=== PATIENT | female | born 1930 | race African-American/Black ===

== ENCOUNTER 2016-03-07 09:34 | Inpatient (IN) | payer MEDICARE, MEDICAID ==
[2016-03-07] VITALS (7 sets, daily range): BP systolic 122–162; BP diastolic 51–83
[~2016-03-07] VITALS: Ht 160 cm; Wt 55.8 kg
[2016-03-07] MEDS ORDERED: MEGESTROL625 MG/5 M PO (09:57)
[2016-03-07] MEDS ORDERED: CEROVITE SENIO1 EACH PO (09:57)
[2016-03-07] MEDS ORDERED: TRAVATAN Z5 ML RIGHT EYE (09:57)
[2016-03-07] MEDS ORDERED: NAMENDA XR28 MG PO (09:57)
[2016-03-07] MEDS ORDERED: ASPIRIN EC81 MG ORAL (09:57)
[2016-03-07] MEDS ORDERED: JANUMET 50-5001 EACH ORAL (09:57)
[2016-03-07] MEDS ORDERED: BRIMONIDINE TART5 ML RIGHT EYE (09:57)
[2016-03-07] MEDS ORDERED: BYSTOLIC2.5 MG ORAL (09:57)
[2016-03-07 10:32] LABS: EOSINOPHILS % (AUTO) 1.3 % (0.0-3.0); LYMPHOCYTES % (AUTO) 29.8 % (20.0-45.0); MEAN CORPUSCULAR HEMOGLOBIN 30.6 PG (27.0-31.0); MEAN CORPUSCULAR HGB CONC 33.4 G/DL (32.0-36.0); MEAN CORPUSCULAR VOLUME 92 FL (80-99); MEAN PLATELET VOLUME 7.5 FL (6.5-10.1); MONOCYTES % (AUTO) 6.9 % (1.0-10.0); PLATELET COUNT 379 K/UL (150-450); RED BLOOD COUNT 4.52 M/UL (4.20-5.40); RED CELL DISTRIBUTION WIDTH 13.4 % (11.6-14.8); WHITE BLOOD COUNT 9.2 K/UL (4.8-10.8)
[2016-03-07 10:33] LABS: ALANINE AMINOTRANSFERASE 20 U/L (3-33); ALBUMIN/GLOBULIN RATIO 1.3 (1.0-2.7); ANION GAP 19 (5-15); ASPARTATE AMINO TRANSFERASE 17 U/L (5-40); CALCIUM 9.9 mg/dL (8.6-10.2); CARBON DIOXIDE 21 mEQ/L (20-30); CHLORIDE 101 mEQ/L (98-107); CREATININE 1.4 mg/dL (0.5-0.9); HEMOLYSIS 22; POTASSIUM 4.4 mEQ/L (3.4-4.9); SODIUM 141 mEQ/L (135-145); TOTAL PROTEIN 7.4 g/dL (6.6-8.7)
[2016-03-07 10:34] LABS: TROPONIN I < 0.30 ng/mL (<=0.30)
[2016-03-07 10:39] LABS: PROTHROMBIN TIME 10.6 SEC (9.30-11.50)
[2016-03-07 10:44] LABS: CKMB 1.7 ng/mL (< 3.8)
--- NOTE | 2016-03-07 11:47 | Emergency Room Report ---
History of Present Illness General Chief Complaint: Dizziness Source: Patient, Medical Record, EMS Present Illness HPI Patient reports that she has had several admissions recently for dizziness Was found to be hypotensive this morning as well Patient has a treated the dizziness to bladder infection in the past Denies any headache or visual changes denies any chest pain or shortness of breath Patient is a description of near syncope sensation when she stands The dizziness is not associated with position otherwise Denies any back or flank pain denies any fevers Denies any vomiting or diarrhea denies any trauma Allergies: Coded Allergies: VALSARTAN (Verified Allergy, Unknown, 03/07/16) Patient History Past Medical History: see triage record Pertinent Family History: none Last Menstrual Period: na Reviewed Nursing Documentation: PMH: Agreed, PSxH: Agreed Nursing Documentation-PMH Past Medical History: No History, Except For Hx Hypertension: Yes Hx Diabetes: Yes History Of Psychiatric Problem: Yes - dementia, alzheimers Hx Neurological Problems: Yes - syncope Review of Systems All Other Systems: negative except mentioned in HPI Physical Exam Vital Signs Date Time Temp Pulse Resp B/P Pulse Ox O2 Delivery O2 Flow Rate FiO2 03/07/16 09:26 98.2 79 16 211/96 100 Room Air Sp02 EP Interpretation: reviewed, normal General Appearance: well appearing, no apparent distress Head: normocephalic, atraumatic Eyes: bilateral eye EOMI, bilateral eye PERRL ENT: hearing grossly normal, normal pharynx, TMs + canals normal, uvula midline Neck: full range of motion, supple, no meningismus, no bony tend Respiratory: lungs clear, normal breath sounds, no rhonchi, no respiratory distress, no retraction, no accessory muscle use Cardiovascular #1: normal peripheral pulses, regular rate, rhythm, no edema, no gallop, no JVD, no murmur Gastrointestinal: normal bowel sounds, non tender, soft, no mass, no organomegaly, non-distended, no guarding, no hernia, no pulsatile mass, no rebound Genitourinary: no CVA tenderness Musculoskeletal: normal inspection Neurologic: oriented x3, responsive, 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 as tested, motor strength/ tone normal, sensory intact Psychiatric: mood/affect normal Skin: normal color, no rash, warm/dry, palpation normal Lymphatic: normal inspection, no adenopathy Medical Decision Making Diagnostic Impression: Primary Impression: Hypertensive urgency, malignant Additional Impression: Dizziness ER Course Patient is a fairly complex patient with multiple differential to consideration including but not limited to cardiac cardiopulmonary , intracranial and vascular emergencies Patient's baseline blood work are appropriate levels Patient's CT head did not show any acute disease Hypotensive finding improved with time here in the ER Given the patient's complaints the multiple recent near syncopal episodes and dizziness further carotid ultrasound And cardiovascular workup is required And the patient admitted for further care Labs Test 03/07/16 09:50 White Blood Count 9.2 K/UL (4.8-10.8) Red Blood Count 4.52 M/UL (4.20-5.40) Hemoglobin 13.8 G/DL (12.0-16.0) Hematocrit 41.5 % (37.0-47.0) Mean Corpuscular Volume 92 FL (80-99) Mean Corpuscular Hemoglobin 30.6 PG (27.0-31.0) Mean Corpuscular Hemoglobin Concent 33.4 G/DL (32.0-36.0) Red Cell Distribution Width 13.4 % (11.6-14.8) Platelet Count 379 K/UL (150-450) Mean Platelet Volume 7.5 FL (6.5-10.1) Neutrophils (%) (Auto) 60.0 % (45.0-75.0) Lymphocytes (%) (Auto) 29.8 % (20.0-45.0) Monocytes (%) (Auto) 6.9 % (1.0-10.0) Eosinophils (%) (Auto) 1.3 % (0.0-3.0) Basophils (%) (Auto) 2.0 % (0.0-2.0) Prothrombin Time 10.6 SEC (9.30-11.50) Prothromb Time International Ratio 1.0 (0.9-1.1) Activated Partial Thromboplast Time 21 SEC (23-33) Sodium Level 141 mEQ/L (135-145) Potassium Level 4.4 mEQ/L (3.4-4.9) Chloride Level 101 mEQ/L (98-107) Carbon Dioxide Level 21 mEQ/L (20-30) Anion Gap 19 (5-15) Blood Urea Nitrogen 27 mg/dL (7-23) Creatinine 1.4 mg/dL (0.5-0.9) Estimat Glomerular Filtration Rate mL/min (>60) Glucose Level 199 mg/dL (74-106) Calcium Level 9.9 mg/dL (8.6-10.2) Total Bilirubin 0.5 mg/dL (0.0-1.2) Aspartate Amino Transf (AST/SGOT) 17 U/L (5-40) Alanine Aminotransferase (ALT/SGPT) 20 U/L (3-33) Alkaline Phosphatase 54 U/L (35-104) Total Creatine Kinase 45 U/L (26-140) Creatine Kinase MB 1.7 ng/mL (< 3.8) Creatine Kinase MB Relative Index 3.7 Troponin I < 0.30 ng/mL (<=0.30) Pro-B-Type Natriuretic Peptide 235 pg/mL (0-450) Total Protein 7.4 g/dL (6.6-8.7) Albumin 4.3 g/dL (3.5-5.2) Globulin 3.1 g/dL Albumin/Globulin Ratio 1.3 (1.0-2.7) EKG Diagnostic Results Rate: normal Rhythm: NSR ST Segments: other - Nonspecific ST and T-wave changes, LVH Rhythm Strip Diag. Results EP Interpretation: yes Rate: 74 Rhythm: NSR, no PVC's, no ectopy Chest X-Ray Diagnostic Results EP Interpretation: Yes Findings: no consolidation, no effusion, no pneumothorax Number of Views: 1 CT/MRI/US Diagnostic Results CT/MRI/US Diagnostic Results : Impression CT head no acute disease Last Vital Signs Date Time Temp Pulse Resp B/P Pulse Ox O2 Delivery O2 Flow Rate FiO2 03/07/16 10:00 65 16 162/72 100 Room Air 03/07/16 09:26 98.2 Status: improved Disposition: ADMITTED INPATIENT Condition: Serious Referrals: NON PHYSICIAN (PCP) CHRISTIANNE NAGY D.O. Mar 07, 2016 11:47
[2016-03-07 12:07] LABS: APPEARANCE,URINE CLOUDY; KETONES,URINE NEGATIVE (NEGATIVE); LEUKOCYTE ESTERASE ,URINE 3+ (NEGATIVE); NITRITE,URINE NEGATIVE (NEGATIVE); PH,URINE 7 (4.5-8.0); PROTEIN,URINE 2+ (NEGATIVE); UROBILINOGEN,URINE NORMAL MG/DL (0.0-1.0)
[2016-03-07 12:14] LABS: BACTERIA,URINE MODERATE /HPF; RBC,URINE 0-2 /HPF (0 - 2); SQUAMOUS EPITHELIAL CELL,UR FEW /LPF (NONE/OCC)
[2016-03-07] MEDS ORDERED: cefTRIAXone 1 GM in NS 55 ML IVPB ONE (13:45)
--- NOTE | 2016-03-07 19:39 | History & Physical ---
History and Physical History & Physicial dizziness , pre syncope dm nephropathy htn dementia uti Plan: Monitor cardiac stop mind altering meds- Hydrate- Neuro eval rocepema asa carotid duplex DAVIDA SMUMERS Mar 07, 2016 19:39
[2016-03-07] MEDS: Heparin 5000 units/ml inj SUBQ SCH (21:21)
[2016-03-07] MEDS: cefTRIAXone 1 GM in D5W 55 ML IVPB SCH (22:04)
--- NOTE | 2016-03-08 04:37 | History and Physical Report ---
DATE OF ADMISSION: 03/07/2016 HISTORY OF PRESENT ILLNESS: The patient is an 85-year-old female, a resident of the [facility], had previous several admissions for dizziness today and she was found to be hypotensive and again was dizzy. The patient did fall down, did not have any gastrointestinal symptoms. The patient was brought into emergency room, was found to have a urinary tract infection and subsequently is being admitted for further management. ALLERGIES: Valsartan. MEDICATIONS: The list of her medications include Alphagan, aspirin, Bystolic, Razadyne ER 8 mg, combination of Januvia and metformin, Megace, Namenda, and Travatan eye drop. PAST MEDICAL HISTORY: Past history of the patient is significant for diabetes mellitus, dementia, hypertension, atherosclerotic heart disease, and diabetes mellitus. PHYSICAL EXAMINATION: GENERAL: Today, at this time, the patient answers question appropriately. VITAL SIGNS: Temperature 98.7, pulse rate 74, the lowest was 60 sinus rhythm; blood pressure 147/69, and respiratory rate is 18. The patient is not in any distress. HEENT: Head is normocephalic. Face is pale. Sclerae are not icteric. Has dentures. No carotid bruits are audible. LUNGS: Clear. HEART: Regular rate. Soft systolic murmur at the apex left sternal border. ABDOMEN: Slightly distended. Soft. EXTREMITIES: Lower extremities, no edema. Evidence of two knee surgeries and the scar is seen anteriorly. LABORATORY RESULTS: Urine, 3+ leukocyte esterase, 15 WBCs. Creatinine 1.4. Electrolytes normal. Hemoglobin 13.8. Urine, 3+ leukocyte esterase and 2+ protein, and coag studies are negative. IMPRESSION: This patient comes in to the hospital with a diagnosis of dizziness and about to pass out and had a blood pressure of 211/96 on arrival. Diagnoses: 1. Dizziness, presyncopal. 2. Hypertensive emergency. 3. Evidence of urinary tract infection. 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 PLAN: At this point, stop Bystolic and mind-altering medication. Hydrate. Neurology evaluation. Rocephin, aspirin, and carotid duplex studies. Also, I have changed to Bystolic to Norvasc. According to how the patient's condition evolves, we make the proper changes in our future management. Erich Otoniel Dawn DR: ROGELIO JOB#: [id number] CC:
[2016-03-08 06:00] VITALS: BP 133/61
[2016-03-08] MEDS ORDERED: sitaGLIPtin 50mg tab ORAL SCH (06:30)
[2016-03-08 08:00] VITALS: BP 145/93
[2016-03-08 08:27] LABS: BASOPHILS % (AUTO) 1.5 % (0.0-2.0); EOSINOPHILS % (AUTO) 1.3 % (0.0-3.0); LYMPHOCYTES % (AUTO) 41.6 % (20.0-45.0); MEAN CORPUSCULAR HEMOGLOBIN 30.7 PG (27.0-31.0); MEAN CORPUSCULAR HGB CONC 33.6 G/DL (32.0-36.0); MEAN CORPUSCULAR VOLUME 91 FL (80-99); MEAN PLATELET VOLUME 7.9 FL (6.5-10.1); MONOCYTES % (AUTO) 7.3 % (1.0-10.0); NEUTROPHILS % (AUTO) 48.4 % (45.0-75.0); PLATELET COUNT 365 K/UL (150-450); RED BLOOD COUNT 4.33 M/UL (4.20-5.40); RED CELL DISTRIBUTION WIDTH 13.4 % (11.6-14.8); WHITE BLOOD COUNT 7.9 K/UL (4.8-10.8)
[2016-03-08 08:41] LABS: ALANINE AMINOTRANSFERASE 29 U/L (3-33); ALBUMIN/GLOBULIN RATIO 1.4 (1.0-2.7); ANION GAP 18 (5-15); ASPARTATE AMINO TRANSFERASE 22 U/L (5-40); CALCIUM 9.4 mg/dL (8.6-10.2); CARBON DIOXIDE 21 mEQ/L (20-30); CHLORIDE 103 mEQ/L (98-107); CHOLESTEROL 131 mg/dL (< 200); CHOLESTEROL/HDL RATIO 3.1 (3.3-4.4); CREATININE 1.3 mg/dL (0.5-0.9); CRP QUANT < 0.3 mg/dL (< 0.5); HEMOLYSIS 4; LDL CHOLESTEROL (CALC.) 72 mg/dL (60-99); PHOSPHORUS 3.4 mg/dL (2.5-4.8); POTASSIUM 4.2 mEQ/L (3.4-4.9); SODIUM 142 mEQ/L (135-145); URIC ACID 3.9 mg/dL (3.0-7.5)
[2016-03-08] MEDS: Aspirin Baby 81mg ORAL SCH (08:59)
[2016-03-08] MEDS: Heparin 5000 units/ml inj SUBQ SCH ×2 (08:59→20:29)
[2016-03-08] MEDS ORDERED: Lisinopril 2.5mg tab ORAL SCH (09:00)
--- NOTE | 2016-03-08 11:39 | General Progress Note ---
Assessment/Plan Status: stable Assessment/Plan This patient comes in to the hospital with a diagnosis of dizziness and about to pass out and had a blood pressure of 211/96 on arrival. Diagnoses: 1. Dizziness, presyncopal. 2. Hypertensive emergency. 3. Evidence of urinary tract infection. 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 Plan: Rocephin- Stop Mind altering meds which cause side effect- PT OT- Neuroeval- Carotid duplex- Increase Januvia Subjective ROS Limited/Unobtainable: No Allergies: Coded Allergies: VALSARTAN (Verified Allergy, Unknown, 03/07/16) Objective Last 24 Hour Vital Signs Date Time Temp Pulse Resp B/P Pulse Ox O2 Delivery O2 Flow Rate FiO2 03/08/16 08:59 63 145/93 03/08/16 08:00 67 03/08/16 08:00 96.7 63 17 145/93 Room Air 63 03/08/16 06:00 97.7 66 20 133/61 Room Air 03/08/16 03:45 63 03/07/16 23:45 65 03/07/16 23:40 97.7 66 20 135/65 99 Room Air 03/07/16 20:00 69 18 147/64 98 Room Air 03/07/16 20:00 70 03/07/16 18:22 71 03/07/16 16:59 95.9 70 20 152/68 99 Room Air 03/07/16 15:01 98.7 74 18 147/69 95 Room Air 03/07/16 14:21 98.8 70 15 122/51 100 Room Air 03/07/16 13:47 98.8 70 15 122/51 100 Room Air 03/07/16 12:00 73 16 138/83 100 Room Air Intake and Output 03/07/16 03/08/16 19:00 07:00 Intake Total 100 ml 1100 ml Output Total 800 ml Balance 100 ml 300 ml Intake Oral 100 ml IV Total 1100 ml Output Urine Total 800 ml # Voids 1 Laboratory Tests 03/07/16 11:40: Urine Color Pale yellow, Urine Appearance Cloudy, Urine pH 7, Urine Specific [place] 1.010, Urine Protein 2+H, Urine Glucose (UA) Negative, Urine Ketones Negative, Urine Occult Blood 1+H, Urine Nitrite Negative, Urine Bilirubin Negative, Urine Urobilinogen Normal, Urine Leukocyte Esterase 3+H, Urine RBC 0-2 , Urine WBC 10-15H, Urine Squamous Epithelial Cells Few, Urine Bacteria ModerateH 03/08/16 07:25: White Blood Count 7.9, Red Blood Count 4.33, Hemoglobin 13.3, Hematocrit 39.6, Mean Corpuscular Volume 91, Mean Corpuscular Hemoglobin 30.7, Mean Corpuscular Hemoglobin Concent 33.6, Red Cell Distribution Width 13.4, Platelet Count 365, Mean Platelet Volume 7.9, Neutrophils (%) (Auto) 48.4, Lymphocytes (%) (Auto) 41.6, Monocytes (%) (Auto) 7.3, Eosinophils (%) (Auto) 1.3, Basophils (%) (Auto ) 1.5, Sodium Level 142, Potassium Level 4.2, Chloride Level 103, Carbon Dioxide Level 21, Anion Gap 18H, Blood Urea Nitrogen 20, Creatinine 1.3H, Estimat Glomerular Filtration Rate , Glucose Level 168H, Uric Acid 3.9, Calcium Level 9.4, Phosphorus Level 3.4, Magnesium Level 2.0, Total Bilirubin 0.3, Gamma Glutamyl Transpeptidase 55H, Aspartate Amino Transf (AST/SGOT) 22, Alanine Aminotransferase (ALT/SGPT) 29, Alkaline Phosphatase 50, C-Reactive Protein, Quantitative < 0.3, Pro-B-Type Natriuretic Peptide 220, Total Protein 7.0, Albumin 4.1, Globulin 2.9, Albumin/Globulin Ratio 1.4, Triglycerides Level 84, Cholesterol Level 131, LDL Cholesterol 72, HDL Cholesterol 42, Cholesterol/ HDL Ratio 3.1L, Vitamin B12 Level [Pending], Folate [Pending], Thyroid Stimulating Hormone (TSH) 1.990 Height (Feet): 5 Height (Inches): 3.00 Weight (Pounds): 123 General Appearance: no apparent distress Cardiovascular: normal rate Respiratory/Chest: lungs clear Abdomen: soft Objective other PE not changed DAVIDA SUMMERS Mar 08, 2016 11:39
[2016-03-08 12:00] VITALS: BP 140/70
[2016-03-08] MEDS ORDERED: sitaGLIPtin 50mg tab ORAL ONE (12:00)
[2016-03-08] MEDS: metFORMIN 500mg tab ORAL SCH ×2 (12:03→16:02)
[2016-03-08 16:00] VITALS: BP 137/63
[2016-03-08] MEDS ORDERED: NS 55ml IV ONE (16:14)
--- NOTE | 2016-03-08 17:00 | Consultation ---
Consult Note Consult Note NEUROLOGY CONSULTATION: Full note dictated #[id number] 85 y/o, RH, BF with PH of HTN, DM, Frequent UTIs and cognitive decline. Has had multiple episodes of unsteadiness on her feet - calls it dizziness. She has also had episodes of her legs buckling and falling down. ON EXAM: Cognitive dysfunction. Mild right VII central. Globally decreased reflexes in UEs with loss of LE DTRs. Wide based stance and gait. IMPRESSION: Unsteadiness on feet due to neuropathic process - most probably due to DM. Episodes of legs buckling and falling down may be due to BP fluctuations. 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 UTI causing decline in MS and near syncope. REC: Agree with Rx. Vit D, SPEP to complete neuropathy W/U. Mobilize with PT. Kiesha Cortez M.D., M.S.P.Jonny. KIESHA CORTEZ Mar 08, 2016 17:00
[2016-03-08] MEDS ORDERED: Tubing IV Secondary IV ONE (18:29)
[2016-03-08 20:00] VITALS: BP 126/72
[2016-03-08] MEDS: cefTRIAXone 1 GM in D5W 55 ML IVPB SCH (20:26)
--- NOTE | 2016-03-08 22:27 | Consultation ---
DATE OF CONSULTATION: 03/08/2016 NEUROLOGY CONSULTATION CONSULTING PHYSICIAN: Donnie Cortez M.D. REQUESTING PHYSICIAN: Erich Dawn M.D. HISTORY: Ms. Cresencio Wu is an 85-year-old, right-handed, black lady, who does have a past history of hypertension, diabetes mellitus, cognitive decline, and heart disease, who lives in an extended living facility. As per Ms. Wu "my computer has stopped working." She feels that her memory has been failing for the last few months and is progressively getting worse. She forgets things told to her. She is unable to remember what people have told her. She forgets appointment and she is quite aware of this. She also has had multiple episodes of what she calls dizziness. The dizziness is a sensation of being unsteady on her feet. She is uncertain as to when exactly this dizziness started but she usually notices it when she is standing or walking and it seems to go away if she sits or lays in bed. She has also had a few episodes where while she is walking she feels lightheaded. This is followed by her legs buckling under her and her falling down. She is uncertain if she loses consciousness when she has these episodes or not. She was complaining of dizziness yesterday at her extended living facility and was noted to have significant elevation in her blood pressure. As a result of that, [place] [facility] [place] When she was brought in her blood pressures were in the 200 systolic range. Since she has been here, her pressure is better controlled. She was also discovered to have a urinary tract infection, which has since been treated and she feels generally better today. PAST MEDICAL HISTORY: Significant for high blood pressure, diabetes mellitus, atherosclerotic heart disease, and cognitive decline. FAMILY HISTORY: Nothing significant other than high blood pressure and diabetes mellitus in other family members. PERSONAL HISTORY: Home: She lives in extended living facility. 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 Habits: She denies use of alcohol, tobacco, or illicit drugs. PRESENT MEDICATIONS: Prior to admission included Alphagan, aspirin, Bystolic, Razadyne ER 8 mg, Januvia, metformin, Megace, Namenda, and Travatan eye drops. PHYSICAL EXAMINATION: GENERAL: She is a well-developed, well-nourished, but lean, black lady, lying in bed, in no acute distress. VITAL SIGNS: Pulse 60 per minute, blood pressure 140/70 mmHg, respirations 17 per minute, and temperature 98.2 degrees Fahrenheit. HEAD: Normocephalic and atraumatic. NECK: No neck rigidity was observed. EENT: Benign. NEUROLOGICAL EXAMINATION: MENTAL STATUS EXAMINATION: She was alert and awake. She was oriented to self only. She had no idea what the date, month, year, or name of the hospital was. She was able to recall 3/3 words immediately, but could only remember 1/3 words in 1 minute and 0/3 words in 3 minutes. She knew that Obama was president, but could not remember presidents prior to that. Her mathematical skills were impaired. Her visuospatial function was also impaired. SPEECH: She had no dysarthria. LANGUAGE: She had anomia for low-frequency words. CRANIAL NERVE EXAMINATION: II: The visual peraza were intact to confrontation testing. III, IV & : The external ocular movements were full and the pupils 3 mm in diameter, equal, round, regular and reactive to light. V: She had normal facial sensations and the temporales, masseters, and pterygoids functioned normally. VII: She had a mild right VII central facial paresis. VIII: She was able to hear well and had no nystagmus. IX: The palate moved symmetrically on phonation. X: She had no hoarseness of voice. XI: The sternocleidomastoids and trapezii functioned normally. XII: The tongue was in the midline without any fasciculations or atrophy. MOTOR SYSTEM: The tone was normal in all four extremities. Examination of muscle mass revealed no focal wasting. Examination of power revealed grade 5/5 power in all muscle groups tested. SENSORY EXAMINATION: She had intact sensations to pinprick, light touch, and graphesthesia. Position sense was normal in the fingers bilaterally, but was diminished in the toes bilaterally. REFLEXES: Trace+ and bilaterally symmetrical at the biceps, triceps, and brachioradialis. 0 at both knees and ankles. The plantar responses were flexor bilaterally. STANCE: She stood up with support. GAIT: She walked with support with a wide-based gait. DIAGNOSTIC IMPRESSION: 1. Ms. Cresencio Wu is an 85-year-old, right-handed, black lady, who does have a past history of hypertension, diabetes mellitus, dementia, prior urinary tract infections, episodes of unsteadiness on her feet and episodes of lightheadedness followed by her legs buckling and her falling down, who was hospitalized yesterday for feeling dizzy and having significant elevations in blood pressure. 2. On neurological examination, at this time, she does have significant problems with orientation, recent and remote memory, visuospatial function, higher cognitive function and language. She also has a mild right VII central facial paresis, decreased position sense in the toes bilaterally, globally decreased reflexes in the upper extremities with loss of deep tendon reflexes in the lower extremities and a wide-based stance and gait. 3. Laboratory data obtained thus far revealed a relatively normal CBC. A chemistry panel revealing a creatinine elevated to 1.3, blood sugar elevated to 168, GGT elevated to 55, hemoglobin A1c elevated to 7.8, and a normal TSH. The Urinalysis revealed 3+ leukocyte esterase with 0 to 2 red blood cells, 10 to 15 white blood cells, and a moderate amount of bacteria in the urine. 4. The patient's history, neurological examination, and laboratory data are most compatible with unsteadiness on her feet due to neuropathic process most probably related to diabetes mellitus. 5. Her episodes of legs buckling and falling down may be related to blood pressure fluctuations causing near syncope. 6. 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 7. The patient does have an urinary tract infection, which could be causing a decline in her mental state and her near syncope. RECOMMENDATIONS: 1. Agree with management thus far including aggressive treatment of the patient's infectious process and correcting her fluid and electrolyte balance. 2. Agree with workup for treatable causes of neuropathy. In addition to the laboratory tests already done, a vitamin D level and serum protein immunoelectrophoresis should also be obtained. 3. The patient should be mobilized with the help of physical and occupational therapy. 4. Once the patient is clinically stable, she should be restarted on her memory stabilizing drugs. Thank you for entrusting me with the care of Ms. Wu. I shall follow her with you. Donnie Cortez M.D., M.S.P.H. DR: MIAH JOB#: [id number] MTDChris
[2016-03-09] VITALS: BP 132/79
[2016-03-09 04:00] VITALS: BP 122/59
[2016-03-09 07:54] VITALS: BP 132/70
[2016-03-09] MEDS: Aspirin Baby 81mg ORAL SCH (08:21)
[2016-03-09] MEDS: Heparin 5000 units/ml inj SUBQ SCH ×2 (08:27→21:31)
--- NOTE | 2016-03-09 08:29 | Diagnostic Imaging Report ---
Indications: Dizziness Technique: Continuous helical CT imaging of the brain was performed with nonionic exposure control on a Siemens sensation [address] scanner. Axial and coronal images were reconstructed at 5 mm slice thickness and interval. CTDI volume(s): 70 mGy Total DLP: 1340 mGy-cm Findings: Comparison: None Confluent low attenuation is present in the bilateral periventricular white matter. No focus of low attenuation is present in each thalamus. Ventricles, cisterns, and sulci are diffusely prominent. No evidence of mass or hemorrhage, mass effect, midline shift, hydrocephalus, or increased intracranial pressure. Bone window images are unremarkable. Visualized paranasal sinuses and mastoid air cells are clear. IMPRESSION: Bilateral thalamic lacunar infarcts, probably but not definitely old. Consider MRI for more sensitive evaluation, as clinically indicated. No other evidence of acute intracranial pathology Bilateral cerebral periventricular white matter low attenuation, nonspecific, likely chronic microvascular ischemic in nature. Atrophy. The CT scanner at [facility] is accredited by the [employer] and the scans are performed using protocols designed to limit radiation exposure to as low as reasonably achievable to attain images of sufficient resolution adequate for diagnostic evaluation.
--- NOTE | 2016-03-09 08:30 | Diagnostic Imaging Report ---
Indications: Chest pain Technique: Portable AP chest Findings: Comparison: None Suboptimal inspiration limits evaluation. Linear density left midlung. Right lung, bilateral pleural surfaces clear. Heart size, pulmonary vasculature within normal limits. Aortic arch calcified. Left glenohumeral joint space narrowed with marginal osteophyte formation. IMPRESSION: Subsegmental atelectasis versus scarring left midlung Otherwise no evidence of acute cardiopulmonary disease, limited as described Aortosclerosis Left glenohumeral degenerative arthropathy
--- NOTE | 2016-03-09 10:04 | General Progress Note ---
Assessment/Plan Status: stable Assessment/Plan This patient comes in to the hospital with a diagnosis of dizziness and about to pass out and had a blood pressure of 211/96 on arrival. Diagnoses: 1. Dizziness, presyncopal. 2. Hypertensive emergency. 3. Evidence of urinary tract infection. 4. Huigh A1c - DM - Nephropathy Neuro: The patient's history, neurological examination, and laboratory data are most compatible with unsteadiness on her feet due to neuropathic process most probably related to diabetes mellitus. 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 Plan: no labs today- Rocephin- Stop Mind altering meds which cause side effect- PT OT- Neuroeval- noted Carotid duplex- Increase Januvia Subjective ROS Limited/Unobtainable: No Constitutional: Reports: malaise Allergies: Coded Allergies: VALSARTAN (Verified Allergy, Unknown, 03/07/16) Objective Last 24 Hour Vital Signs Date Time Temp Pulse Resp B/P Pulse Ox O2 Delivery O2 Flow Rate FiO2 03/09/16 08:21 72 132/70 03/09/16 08:00 75 03/09/16 07:54 97.2 72 18 132/70 98 Room Air 03/09/16 04:00 97.7 71 16 122/59 100 Room Air 03/09/16 03:47 65 03/09/16 00:00 97.9 69 18 132/79 99 Room Air 03/08/16 23:53 71 03/08/16 20:00 72 03/08/16 20:00 96.8 71 18 126/72 99 Room Air 03/08/16 17:39 70 137/63 03/08/16 16:00 71 03/08/16 16:00 98.1 70 19 137/63 98 Room Air 03/08/16 12:00 65 03/08/16 12:00 98.2 58 17 140/70 99 Room Air 73 Intake and Output 03/08/16 03/09/16 19:00 07:00 Intake Total 750 ml 110 ml Balance 750 ml 110 ml Intake Oral 640 ml IV Total 110 ml 110 ml # Voids 1 Laboratory Tests 03/08/16 18:05: Total Protein (PEP) [Pending], Albumin (PEP) [Pending], Globulin (PEP) [Pending] , Albumin/Globulin Ratio [Pending], [id number] [Pending], Alpha-2- Globulins [Pending], Beta Globulins [Pending], Beta Gamma Globulin [Pending], PEP Abnormal Protein Bands [Pending], Protein Electrophoresis Interpret [Pending ], Vitamin D 25-Hydroxy [Pending], 25-Hydroxy Vitamin D2 [Pending], 25-Hydroxy Vitamin D3 [Pending] Height (Feet): 5 Height (Inches): 3.00 Weight (Pounds): 123 General Appearance: no apparent distress Objective other PE not changed DAVIDA SUMMERS Mar 09, 2016 10:04
[2016-03-09] MEDS: metFORMIN 500mg tab ORAL SCH ×2 (11:21→17:11)
[2016-03-09 11:37] VITALS: BP 126/57
--- NOTE | 2016-03-09 15:11 | Neurology Progress Note ---
Interim History Interim History Interim History Ms. Wu feels better today. She is eager to go home. She denies and dizziness, lightheadedness, unsteadiness on her feet. She denies any new neurologic symptoms. She specifically denies any new weakness, numbness, visual problems or language problems. She continues to complain of forgetfulness. Review of Systems Neuro Review of Systems Benign. Objective Physical Exam Last Vital Signs Date Time Temp Pulse Resp B/P Pulse Ox O2 Delivery O2 Flow Rate FiO2 03/09/16 12:00 69 03/09/16 11:37 97.3 18 126/57 98 Room Air Laboratory Tests Test 03/08/16 18:05 Total Protein (PEP) Pending Albumin (PEP) Pending Globulin (PEP) Pending Albumin/Globulin Ratio Pending [id number] Pending Nfzhj-[id number] Pending Beta Globulins Pending Beta Gamma Globulin Pending PEP Abnormal Protein Bands Pending Protein Electrophoresis Interpret Pending Vitamin D 25-Hydroxy Pending 25-Hydroxy Vitamin D2 Pending 25-Hydroxy Vitamin D3 Pending Neurologic Exam Objective PHYSICAL EXAMINATION: GENERAL: She is a well-developed, well-nourished, but lean, black lady, lying in bed, in no acute distress. HEAD: Normocephalic and atraumatic. NECK: No neck rigidity was observed. EENT: Benign. NEUROLOGICAL EXAMINATION: MENTAL STATUS EXAMINATION: She was alert and awake. She was oriented to self only. She had no idea what the date, month, year, or name of the hospital was. She was able to recall 3/3 words immediately, but could only remember 1/3 words in 1 minute and 0/3 words in 3 minutes. She knew that Winloyal was president, but could not remember presidents prior to that. Her mathematical skills were impaired. Her visuospatial function was also impaired. SPEECH: She had no dysarthria. LANGUAGE: She had anomia for low-frequency words. CRANIAL NERVE EXAMINATION: II: The visual peraza were intact to confrontation testing. III, IV & : The external ocular movements were full and the pupils 3 mm in diameter, equal, round, regular and reactive to light. V: She had normal facial sensations and the temporales, masseters, and pterygoids functioned normally. VII: She had a mild right VII central facial paresis. VIII: She was able to hear well and had no nystagmus. IX: The palate moved symmetrically on phonation. X: She had no hoarseness of voice. XI: The sternocleidomastoids and trapezii functioned normally. XII: The tongue was in the midline without any fasciculations or atrophy. MOTOR SYSTEM: The tone was normal in all four extremities. Examination of muscle mass revealed no focal wasting. Examination of power revealed grade 5/5 power in all muscle groups tested. SENSORY EXAMINATION: She had intact sensations to pinprick, light touch, and graphesthesia. Position sense was normal in the fingers bilaterally, but was diminished in the toes bilaterally. REFLEXES: Trace+ and bilaterally symmetrical at the biceps, triceps, and brachioradialis. 0 at both knees and ankles. The plantar responses were flexor bilaterally. STANCE: She stood up with support. GAIT: She walked with support with a wide-based gait. Impression/Recommendations Diagnostic Impression 1. Ms. Cresencio Wu is an 85-year-old, right-handed, black lady, who does have a past history of hypertension, diabetes mellitus, dementia, prior urinary tract infections, episodes of unsteadiness on her feet and episodes of lightheadedness followed by her legs buckling and her falling down, who was hospitalized on 03/07/2016 for feeling dizzy and having significant elevations in blood pressure. 2. She feels better today. She is eager to go home. She continues to be cognitively impoverished. 3. On neurological examination, at this time, she does have significant problems with orientation, recent and remote memory, visuospatial function, higher cognitive function and language. She also has a mild right VII central facial paresis, decreased position sense in the toes bilaterally, globally decreased reflexes in the upper extremities with loss of deep tendon reflexes in the lower extremities and a wide-based stance and gait. 4. Laboratory data on my initial evaluation revealed a relatively normal CBC.A chemistry panel revealing a creatinine elevated to 1.3, blood sugar elevated to 168, GGT elevated to 55, hemoglobin A1c elevated to 7.8, and a normal TSH. The Urinalysis revealed 3+ leukocyte esterase with 0 to 2 red blood cells, 10 to 15 white blood cells, and a moderate amount of bacteria in the urine. 5. 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 6. The patient's history, neurological examination, and laboratory data are most compatible with unsteadiness on her feet due to a neuropathic process most probably related to diabetes mellitus. 7. Her episodes of legs buckling and falling down may be related to blood pressure fluctuations causing near syncope. 8. 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 9. The patient does have an urinary tract infection, which could be causing a decline in her mental state and contributing to her near syncope. Recommendations 1. Continue present management. 2. Aggressive treatment of the patient's infectious process and correcting her fluid and electrolyte balance. 3. Await results for workup for treatable causes of neuropathy. 4. Mobilize with physical and occupational therapy. 5. Once the patient is clinically stable, restart on her memory stabilizing drugs. Kiesha Cortez M.D., M.S.P.Jonny. KIESHA CORTEZ Mar 09, 2016 15:11
[2016-03-09 16:00] VITALS: BP 134/71
[2016-03-09 19:00] VITALS: BP 137/66
[2016-03-09] MEDS ORDERED: cefTRIAXone 1 GM in D5W 55 ML IVPB SCH (21:00)
[2016-03-10] VITALS: BP 140/62
[2016-03-10 04:00] VITALS: BP 108/53
[2016-03-10 07:35] LABS: BASOPHILS % (AUTO) 2.2 % (0.0-2.0); EOSINOPHILS % (AUTO) 1.3 % (0.0-3.0); LYMPHOCYTES % (AUTO) 38.4 % (20.0-45.0); MEAN CORPUSCULAR HEMOGLOBIN 30.6 PG (27.0-31.0); MEAN CORPUSCULAR HGB CONC 33.5 G/DL (32.0-36.0); MEAN CORPUSCULAR VOLUME 91 FL (80-99); MONOCYTES % (AUTO) 6.8 % (1.0-10.0); NEUTROPHILS % (AUTO) 51.4 % (45.0-75.0); PLATELET COUNT 362 K/UL (150-450); RED CELL DISTRIBUTION WIDTH 13.4 % (11.6-14.8); WHITE BLOOD COUNT 8.2 K/UL (4.8-10.8)
[2016-03-10 08:17] LABS: ALANINE AMINOTRANSFERASE 30 U/L (3-33); ALBUMIN/GLOBULIN RATIO 1.2 (1.0-2.7); ANION GAP 18 (5-15); ASPARTATE AMINO TRANSFERASE 18 U/L (5-40); CALCIUM 9.4 mg/dL (8.6-10.2); CARBON DIOXIDE 19 mEQ/L (20-30); CHLORIDE 102 mEQ/L (98-107); CREATININE 1.3 mg/dL (0.5-0.9); HEMOLYSIS 8; PHOSPHORUS 3.7 mg/dL (2.5-4.8); POTASSIUM 4.5 mEQ/L (3.4-4.9); SODIUM 139 mEQ/L (135-145); TOTAL PROTEIN 6.6 g/dL (6.6-8.7)
[2016-03-10 08:44] VITALS: BP 149/78
[2016-03-10] MEDS ORDERED: Aspirin Baby 81mg ORAL SCH (09:00)
[2016-03-10] MEDS: Heparin 5000 units/ml inj SUBQ SCH (10:02)
--- NOTE | 2016-03-10 10:29 | General Progress Note ---
Assessment/Plan Status: stable Assessment/Plan This patient comes in to the hospital with a diagnosis of dizziness and about to pass out and had a blood pressure of 211/96 on arrival. Diagnoses: 1. Dizziness, presyncopal. 2. Hypertensive emergency. 3. Evidence of urinary tract infection. 4. High A1c - DM - Nephropathy Neuro: The patient's history, neurological examination, and laboratory data are most compatible with unsteadiness on her feet due to neuropathic process most probably related to diabetes mellitus. 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 Plan: DC Rocephin- PO Bactrim Stop Mind altering meds which cause side effect- PT OT- Neuroeval- noted Carotid duplex- Increase Januvia DC to ECF Subjective ROS Limited/Unobtainable: No Constitutional: Reports: other - anxious to go home Allergies: Coded Allergies: VALSARTAN (Verified Allergy, Unknown, 03/07/16) Objective Last 24 Hour Vital Signs Date Time Temp Pulse Resp B/P Pulse Ox O2 Delivery O2 Flow Rate FiO2 03/10/16 09:57 68 149/78 03/10/16 08:44 98.0 68 15 149/78 100 Room Air 03/10/16 04:00 97.9 77 16 108/53 99 Room Air 03/10/16 00:00 98.2 74 17 140/62 100 Room Air 03/09/16 19:00 96.8 79 18 137/66 98 Room Air 03/09/16 17:11 68 126/65 03/09/16 16:00 99.0 99 18 134/71 99 Room Air 03/09/16 12:00 69 03/09/16 11:37 97.3 70 18 126/57 98 Room Air Intake and Output 03/09/16 03/10/16 19:00 07:00 Intake Total 490 ml 295 ml Balance 490 ml 295 ml Intake Oral 490 ml 240 ml IV Total 55 ml # Voids 1 6 Current Medications Medications (Trade) Dose Ordered Sig/Jesenia Route PRN Reason Start Time Stop Time Status Last Admin Dose Admin Acetaminophen (Tylenol) 650 mg Q4H PRN ORAL Mild Pain/Temp > 100.5 03/09/16 19:45 04/08/16 19:44 Amlodipine Besylate (Norvasc) 2.5 mg BID ORAL 03/10/16 09:00 04/09/16 08:59 03/10/16 09:57 Aspirin (ASA) 81 mg DAILY ORAL 03/10/16 09:00 04/09/16 08:59 03/10/16 09:57 Ceftriaxone Sodium/Dextrose (Rocephin/D5W 50ml) 55 ml @ 110 mls/hr Q24H IVPB 03/09/16 21:00 03/14/16 20:59 03/09/16 21:25 Heparin Sodium (Porcine) (Heparin 5000 units/ml) 5,000 units EVERY 12 HOURS SUBQ 03/09/16 21:00 04/08/16 20:59 03/10/16 10:02 Metformin HCl (Glucophage) 500 mg BIDLS ORAL 03/10/16 11:30 04/09/16 11:29 03/10/16 09:57 Pantoprazole (Protonix) 40 mg DAILY ORAL 03/10/16 09:00 04/09/16 08:59 03/10/16 09:58 Sitagliptin Phosphate (Januvia) 100 mg ACBREAKFAST ORAL 03/10/16 06:30 04/09/16 06:29 03/10/16 06:28 Laboratory Tests 03/10/16 05:10: White Blood Count 8.2, Red Blood Count 4.30, Hemoglobin 13.2, Hematocrit 39.3, Mean Corpuscular Volume 91, Mean Corpuscular Hemoglobin 30.6, Mean Corpuscular Hemoglobin Concent 33.5, Red Cell Distribution Width 13.4, Platelet Count 362, Mean Platelet Volume 7.0, Neutrophils (%) (Auto) 51.4, Lymphocytes (%) (Auto) 38.4, Monocytes (%) (Auto) 6.8, Eosinophils (%) (Auto) 1.3, Basophils (%) (Auto ) 2.2H, Sodium Level 139, Potassium Level 4.5, Chloride Level 102, Carbon Dioxide Level 19L, Anion Gap 18H, Blood Urea Nitrogen 21, Creatinine 1.3H, Estimat Glomerular Filtration Rate , Glucose Level 153H, Calcium Level 9.4, Phosphorus Level 3.7, Magnesium Level 2.0, Total Bilirubin < 0.2, Aspartate Amino Transf (AST/SGOT) 18, Alanine Aminotransferase (ALT/SGPT) 30, Alkaline Phosphatase 53, Total Protein 6.6, Albumin 3.7, Globulin 2.9, Albumin/Globulin Ratio 1.2 Height (Feet): 5 Height (Inches): 3.00 Weight (Pounds): 123 General Appearance: no apparent distress Cardiovascular: normal rate Respiratory/Chest: lungs clear Objective other PE not changed DAVIDA SUMMERS Mar 10, 2016 10:29
[2016-03-10] MEDS ORDERED: PROTONIX40 MG ORAL (11:15)
[2016-03-10] MEDS ORDERED: BACTRIM-DS1 EA ORAL (11:15)
[2016-03-10] MEDS ORDERED: GLUCOPHAGE500 MG ORAL (11:15)
[2016-03-10] MEDS ORDERED: NORVASC2.5 MG ORAL (11:15)
[2016-03-10] MEDS ORDERED: ACETAMINOPHEN325 M1 ORAL (11:15)
[2016-03-10] MEDS ORDERED: JANUVIA100 MG ORAL (11:15)
--- NOTE | 2016-03-10 11:17 | Discharge Instructions ---
Discharge Instructions Discharge Instructions Follow up with: PMD to follow in ECF Diet: diabetic calorie control Activity: other - PT OT eval Special Instructions fall percautions- For Congestive Heart Failure Reminder Report to your physician any weight gain of 5 pounds or more in one week. DAVIDA SUMMERS Mar 10, 2016 11:17
[2016-03-10] MEDS ORDERED: metFORMIN 500mg tab ORAL SCH (11:30)
[2016-03-10] MEDS ORDERED: Bactrim DS (160mg/800mg) tab ORAL ONE (12:00)
[2016-03-10 12:30] VITALS: BP 126/60
--- NOTE | 2016-03-10 13:32 | Neurology Progress Note ---
Interim History Interim History Interim History Ms. Wu feels very well. She is eager to go home. Her appetite is excellent. She says she did some walking earlier. She denies and dizziness, lightheadedness, unsteadiness on her feet. She denies any new neurologic symptoms. She specifically denies any new weakness, numbness, visual problems or language problems. She continues to complain of forgetfulness. Review of Systems Neuro Review of Systems Benign. Objective Physical Exam Last Vital Signs Date Time Temp Pulse Resp B/P Pulse Ox O2 Delivery O2 Flow Rate FiO2 03/10/16 12:30 98.1 75 16 126/60 99 Room Air Laboratory Tests Test 03/10/16 05:10 White Blood Count 8.2 K/UL (4.8-10.8) Red Blood Count 4.30 M/UL (4.20-5.40) Hemoglobin 13.2 G/DL (12.0-16.0) Hematocrit 39.3 % (37.0-47.0) Mean Corpuscular Volume 91 FL (80-99) Mean Corpuscular Hemoglobin 30.6 PG (27.0-31.0) Mean Corpuscular Hemoglobin Concent 33.5 G/DL (32.0-36.0) Red Cell Distribution Width 13.4 % (11.6-14.8) Platelet Count 362 K/UL (150-450) Mean Platelet Volume 7.0 FL (6.5-10.1) Neutrophils (%) (Auto) 51.4 % (45.0-75.0) Lymphocytes (%) (Auto) 38.4 % (20.0-45.0) Monocytes (%) (Auto) 6.8 % (1.0-10.0) Eosinophils (%) (Auto) 1.3 % (0.0-3.0) Basophils (%) (Auto) 2.2 % (0.0-2.0) H Sodium Level 139 mEQ/L (135-145) Potassium Level 4.5 mEQ/L (3.4-4.9) Chloride Level 102 mEQ/L (98-107) Carbon Dioxide Level 19 mEQ/L (20-30) L Anion Gap 18 (5-15) H Blood Urea Nitrogen 21 mg/dL (7-23) Creatinine 1.3 mg/dL (0.5-0.9) H Estimat Glomerular Filtration Rate mL/min (>60) Glucose Level 153 mg/dL (74-106) H Calcium Level 9.4 mg/dL (8.6-10.2) Phosphorus Level 3.7 mg/dL (2.5-4.8) Magnesium Level 2.0 mg/dL (1.7-2.5) Total Bilirubin < 0.2 mg/dL (0.0-1.2) Aspartate Amino Transf (AST/SGOT) 18 U/L (5-40) Alanine Aminotransferase (ALT/SGPT) 30 U/L (3-33) Alkaline Phosphatase 53 U/L (35-104) Total Protein 6.6 g/dL (6.6-8.7) Albumin 3.7 g/dL (3.5-5.2) Globulin 2.9 g/dL Albumin/Globulin Ratio 1.2 (1.0-2.7) Neurologic Exam Objective PHYSICAL EXAMINATION: GENERAL: She is a well-developed, well-nourished, but lean, black lady, lying in bed, in no acute distress. HEAD: Normocephalic and atraumatic. NECK: No neck rigidity was observed. EENT: Benign. NEUROLOGICAL EXAMINATION: MENTAL STATUS EXAMINATION: She was alert and awake. She was oriented to self, [employer] and February. She did not know the date or year. She was able to recall 3/3 words immediately, but could only remember 2/3 words in 1 minute and 3 minutes. She knew that Obama was president, but could not remember presidents prior to that. Her mathematical skills were impaired. Her visuospatial function was also impaired. SPEECH: She had no dysarthria. LANGUAGE: She had an anomia for low-frequency words. CRANIAL NERVE EXAMINATION: II: The visual peraza were intact to confrontation testing. III, IV & : The external ocular movements were full and the pupils 3 mm in diameter, equal, round, regular and reactive to light. V: She had normal facial sensations and the temporales, masseters, and pterygoids functioned normally. VII: She had a mild right VII central facial paresis. VIII: She was able to hear well and had no nystagmus. IX: The palate moved symmetrically on phonation. X: She had no hoarseness of voice. XI: The sternocleidomastoids and trapezii functioned normally. XII: The tongue was in the midline without any fasciculations or atrophy. MOTOR SYSTEM: The tone was normal in all four extremities. Examination of muscle mass revealed no focal wasting. Examination of power revealed grade 5/5 power in all muscle groups tested. SENSORY EXAMINATION: She had intact sensations to pinprick, light touch, and graphesthesia. Position sense was normal in the fingers bilaterally, but was diminished in the toes bilaterally. REFLEXES: Trace+ and bilaterally symmetrical at the biceps, triceps, and brachioradialis. 0 at both knees and ankles. The plantar responses were flexor bilaterally. STANCE: She stood up with support. GAIT: She walked with support with a wide-based gait. Impression/Recommendations Diagnostic Impression 1. Ms. Cresencio Wu is an 85-year-old, right-handed, black lady, who does have a past history of hypertension, diabetes mellitus, dementia, prior urinary tract infections, episodes of unsteadiness on her feet and episodes of lightheadedness followed by her legs buckling and her falling down, who was hospitalized on 03/07/2016 for feeling dizzy and having significant elevations in blood pressure. 2. She feels better today. Her cognitive function is significantly improved. She is eager to go home. 3. On neurological examination, at this time, she is better oriented and her memory has improved. She however has problems with visuospatial function, higher cognitive function and language. She also has a mild right VII central facial paresis, decreased position sense in the toes bilaterally, globally decreased reflexes in the upper extremities with loss of deep tendon reflexes in the lower extremities and a wide-based stance and gait. 4. Laboratory data on my initial evaluation revealed a relatively normal CBC.A chemistry panel revealing a creatinine elevated to 1.3, blood sugar elevated to 168, GGT elevated to 55, hemoglobin A1c elevated to 7.8, and a normal TSH. The Urinalysis revealed 3+ leukocyte esterase with 0 to 2 red blood cells, 10 to 15 white blood cells, and a moderate amount of bacteria in the urine. 5. 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 6. The patient's history, neurological examination, and laboratory data are most compatible with unsteadiness on her feet due to a neuropathic process most probably related to diabetes mellitus. 7. Her episodes of legs buckling and falling down may be related to blood pressure fluctuations causing near syncope. 8. 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 9. The patient did have an urinary tract infection, which could have been causing a decline in her mental state, which has now improved. It could have also contributed to her near syncope. Recommendations 1. Continue present management. 2. Aggressive treatment of the patient's infectious process and correcting her fluid and electrolyte balance. 3. Await results for workup for treatable causes of neuropathy. 4. Mobilize with physical and occupational therapy. 5. Once the patient is clinically stable, restart on her memory stabilizing drugs. Kiesha Cortez M.D., M.S.P.KIESHA BADILLO Mar 10, 2016 13:32
[2016-03-10] MEDS ORDERED: Bactrim DS (160mg/800mg) tab ORAL SCH (18:00)
--- NOTE | 2016-03-10 19:54 | Cardiology Report ---
APPROVED REPORT EKG Measurement Heart [id number] Normal sinus rhythm Left ventricular hypertrophy with repolarization abnormality Abnormal ECG
[2016-03-11] MEDS ORDERED: Bactrim DS (160mg/800mg) tab ORAL SCH (09:00)
[2016-03-11 10:15] LABS: A/G RATIO 1.3 (0.7-1.7); ABNORMAL PROTEIN BAND 1 Not Observed g/dL (Not Observed); ALBUMIN 3.9 g/dL (2.9-4.4); ALPHA-1 GLOBULIN 0.1 g/dL (0.0-0.4); BETA GLOBULIN 0.8 g/dL (0.7-1.3); GAMMA GLOBULIN 1.2 g/dL (0.4-1.8); TOTAL PROTEIN 6.9 g/dL (6.0-8.5)
[2016-03-11 14:31] LABS: FOLIC ACID > 20.0 ng/mL (3.1-17.5)
[2016-03-11 15:11] LABS: VITAMIN D 25-OH TOTAL 43 ng/mL (.)
--- NOTE | 2016-03-12 12:03 | Discharge Summary ---
Discharge Summary Hospital Course Date of Admission Mar 07, 2016 at 14:12 Date of Discharge Mar 10, 2016 at 15:37 Admitting Diagnosis HYPERTENSIVE MALIGNANCEY HPI Cresencio Wu is a 85 year old female who was admitted on Mar 07, 2016 at 14: 12 for Hypertensive Malignancey Hospital Course dc summary dictated # [id number] Discharge Medications New Medications: Acetaminophen* (Acetaminophen*) 325 Mg Tablet 650 MG ORAL Q4H PRN for 30 Days, TAB Amlodipine Besylate (Norvasc) 2.5 Mg Tablet 2.5 MG ORAL BID for 30 Days, TAB Metformin Hcl* (Glucophage*) 500 Mg Tablet 500 MG ORAL BIDLS for 30 Days, TAB Pantoprazole* (Protonix*) 40 Mg Tablet.dr 40 MG ORAL DAILY for 30 Days, TAB Sitagliptin (Januvia) 100 Mg Tablet 100 MG ORAL ACBREAKFAST for 30 Days, TAB Trimethoprim/Sulfamethoxazole (Bactrim Ds Tablet) 1 Each Tablet 1 EA ORAL DAILY for 10 Days, TAB Continued Medications: Aspirin Ec* (Aspirin Ec*) 81 Mg Tablet.dr 81 MG ORAL DAILY, TAB Brimonidine Tartrate* (Alphagan*) 5 Ml Drops 1 DROP RIGHT EYE BID, ML Multivitamin W-Minerals/Lutein (Cerovite Senior Tablet) 1 Each Tablet 1 EACH PO DAILY, TAB Travoprost (Travatan Z) 5 Ml Drops 5 ML RIGHT EYE QHS, ML Discharge Condition Upon Discharge: improving, stable Discharge Disposition Patient was discharged to [facility] Discharge Diagnoses: Discharge Instructions Discharge Instructions Follow up with: PMD to follow in ECF Activity: other - PT OT eval Special Instructions I have been assigned to complete a D/C Summary on this account. I was not involved in the patient management Jenna Suarez NP (Vanchtein) Mar 12, 2016 12:03
--- NOTE | 2016-03-13 04:07 | Discharge Summary 2 SIG ---
DATE OF ADMISSION: 03/07/2016 DATE OF DISCHARGE: 03/10/2016 The patient was admitted under Dr. Dawn. REASON FOR HOSPITALIZATION: 85-year-old female, resident of the [facility] with previous several admissions, presented for dizziness and found to be hypotensive. The patient was brought to the emergency room for evaluation and found to have urinary tract infection and admitted for further management. No headache, no visual changes, no chest pain, or shortness of breath. Dizziness was not associated with her position changes. No back or flank pain. No fevers. No diarrhea. No vomiting. No trauma or injury. Initial workup in the emergency room revealed urinalysis positive for UTI. The patient presented without leukocytosis, noo fever. The patient also presented with malignant hypertension. Blood pressure was managed in the emergency room and improved prior to transfer to the floor. ADMITTING DIAGNOSES: 1. Hypertensive urgency, malignant. 2. Dizziness with presyncope. 3. Urinary tract infection. 4. Diabetes mellitus. 5. Hypertension. HOSPITAL COURSE: The patient admitted to Med/Surg floor. The patient started on empiric antibiotics. Urine culture positive for E. coli ESBL. IV antibiotic continued . Attending doctor discontinued Bystolic and changed to calcium channel jasmina Blood pressure was stable with current regimen. Troponin was negative. EKG revealed no ST changes. No evidence of arrhythmia. 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 Continue Aspirin. All mind-altering medication were stopped. Neurology consult was requested. Chest x-ray revealed atelectasis versus scaring in the left mid lung. Carotid duplex revealed minimal stenosis in ICA. Serum protein electrophoresis and vitamin D level both within normal limits. According to neurologist, the patient's history, neurological examination, and laboratory data were most consistent with dizziness due to the neuropathic process, most probably related to diabetes mellitus. The patient worked with physical occupational therapists. Januvia dose was increased. Hemoglobin A1c - 7.8, still not at goal. The patient also has underlying diabetic nephropathy. The patient to be discharged to longterm facility for PT/OT, diabetic calorie count, oral Bactrim, and close monitoring. DISCHARGE MEDICATIONS: See medication reconciliation list. DISCHARGE INSTRUCTIONS: The patient to be discharged to longterm facility. Follow up with medical doctor at the facility. Continue PT/OT. Continue diabetic calorie count. May need further optimization of anti-glycemic regimen. FINAL DIAGNOSES: 1. Hypertensive urgency, malignant - resolved. 2. Dizziness with presyncope, likely secondary to diabetic neuropathy. 3. Diabetic nephropathy. 4. Diabetes mellitus, not well controlled (hemoglobin A1c- 7.8). 5. Urinary tract infection/Escherichia coli extended-spectrum beta-lactamase. 6.. Alzheimer dementia. Erich Dawn M.D. I have been assigned to dictate discharge summary on this account and I was not involved in the patient's management. Jenna AminUniversity Of Pittsburgh Medical CenterJana, N.P. DR: GERMAINE JOB#: [id number] CC: RONNI
--- NOTE | 2016-03-16 17:26 | Diagnostic Imaging Report ---
APPROVED REPORT CPT Code: 90115 Vascular Symptoms Dizziness and Vertigo Doppler Spectral Velocity Analysis RightLeft RIGHT SIDE: CCA - Imaging reveals no significant plaque in the common carotid artery. ICA arteries. The Doppler signal indicates the degree of stenosis is mild (50%) in the internal carotid, and minimal (10%) in the external carotid arteries. VERTEBRAL - The vertebral artery is patent, without evidence of stenosis or steal. LEFT SIDE: CCA - Imaging reveals no significant plaque in the common carotid artery. ICA arteries. The Doppler signal indicates the degree of stenosis is minimal (10-20%) in the internal carotid, and external carotid arteries. VERTEBRAL - The vertebral artery is patent, without evidence of stenosis or steal.
== END 2016-03-10 15:37 | DRG 305 ==
LOC: EDBD 09:34 → EDBEDREQ 10:05 → EMR 10:22 → EDBEDREQ 12:06 → 2E 14:12 → 4E 03-09 15:00
DX: I16.0 Hypertensive urgency (principal); E11.21 Type 2 diabetes mellitus with diabetic nephropathy; E11.40 Type 2 diabetes mellitus with diabetic neuropathy, unspecified; N39.0 Urinary tract infection, site not specified; B96.20 Unspecified Escherichia coli [E. coli] as the cause of diseases classified elsewhere; Z16.12 Extended spectrum beta lactamase (ESBL) resistance; F02.80 Dementia in other diseases classified elsewhere, unspecified severity, without behavioral disturbance, psychotic disturbance, mood disturbance, and anxiety; E11.65 Type 2 diabetes mellitus with hyperglycemia; G30.9 Alzheimer's disease, unspecified; Z79.82 Long term (current) use of aspirin; Z79.84 Long term (current) use of oral hypoglycemic drugs
CPT/HCPCS: 36415; 70450; 71010; 80053; 80061; 81003; 82306; 82550; 82553; 82607; 82746; 82962; 82977; 83036; 83735; 83880; 84100; 84165; 84443; 84484; 84550; 85025; 85610; 85730; 86140; 87081; 87086; 87181; 93005; 93880

== ENCOUNTER 2016-04-06 13:48 | Inpatient (IN) | payer MEDICARE, MEDICAID ==
[~2016-04-06] VITALS: Ht 160 cm; Wt 60.8 kg
[~2016-04-06 13:48] MED LIST: ACETAMINOPHEN325 M1 ORAL; ASPIRIN EC81 MG ORAL; BACTRIM-DS1 EA ORAL; BRIMONIDINE TART5 ML RIGHT EYE; BYSTOLIC2.5 MG ORAL; CEROVITE SENIO1 EACH PO; GLUCOPHAGE500 MG ORAL; JANUMET 50-5001 EACH ORAL; JANUVIA100 MG ORAL; MEGESTROL625 MG/5 M PO; NAMENDA XR28 MG PO; NORVASC2.5 MG ORAL; PROTONIX40 MG ORAL; TRAVATAN Z5 ML RIGHT EYE
[2016-04-06] MEDS ORDERED: Morphine Sulfate 2mg/ml Inj IVP PRN (18:00)
[2016-04-06] MEDS ORDERED: Miralax 17gm pkt ORAL PRN (18:00)
[2016-04-06] MEDS ORDERED: DuoNeb 0.5-3(2.5)mg/3ml neb HHN PRN (18:00)
[2016-04-06] MEDS ORDERED: Nitroglycerin Subl 0.4mg tab (Bottle Of 25) SL PRN (18:00)
[2016-04-06] MEDS ORDERED: Diltiazem 25mg/5ml IV PRN (18:00)
[2016-04-06] MEDS ORDERED: Ketorolac 30mg Inj IV PRN (18:00)
[2016-04-06] MEDS ORDERED: Enalaprilat 2.5mg/2ml Inj IV PRN (18:00)
[2016-04-06 19:40] LABS: TROPONIN I < 0.30 ng/mL (<=0.30)
[2016-04-06 20:00] VITALS: BP 136/56
[2016-04-06] MEDS: Heparin 5000 units/ml inj SUBQ SCH (22:00)
[2016-04-06] MEDS: Donepezil 10mg tab ORAL SCH (22:11)
[2016-04-06] MEDS: Brimonidine 0.2% Opth Sol RIGHT EYE SCH (22:12)
[2016-04-06] MEDS: NovoLOG Insulin Flexpen SUBQ SCH (22:14)
[2016-04-07] VITALS: BP 156/65
[2016-04-07 04:10] VITALS: BP 142/64
[2016-04-07] MEDS: Heparin 5000 units/ml inj SUBQ SCH ×3 (06:08→21:20)
[2016-04-07] MEDS: NovoLOG Insulin Flexpen SUBQ SCH ×2 (06:14→11:59)
[2016-04-07 06:45] LABS: BASOPHILS % (AUTO) 1.9 % (0.0-2.0); LYMPHOCYTES % (AUTO) 35.8 % (20.0-45.0); MEAN CORPUSCULAR HEMOGLOBIN 30.6 PG (27.0-31.0); MEAN CORPUSCULAR HGB CONC 33.1 G/DL (32.0-36.0); MEAN CORPUSCULAR VOLUME 92 FL (80-99); MEAN PLATELET VOLUME 7.7 FL (6.5-10.1); MONOCYTES % (AUTO) 9.2 % (1.0-10.0); PLATELET COUNT 416 K/UL (150-450); RED BLOOD COUNT 3.93 M/UL (4.20-5.40); RED CELL DISTRIBUTION WIDTH 13.2 % (11.6-14.8); WHITE BLOOD COUNT 7.4 K/UL (4.8-10.8)
[2016-04-07 06:52] LABS: INR 1.1 (0.9-1.1); PROTHROMBIN TIME 11.3 SEC (9.30-11.50)
[2016-04-07 07:23] LABS: TROPONIN I < 0.30 ng/mL (<=0.30)
[2016-04-07 07:30] LABS: CHOLESTEROL 170 mg/dL (< 200); CHOLESTEROL/HDL RATIO 4.4 (3.3-4.4); CRP QUANT < 0.3 mg/dL (< 0.5); HEMOLYSIS 7; LDL CHOLESTEROL (CALC.) 95 mg/dL (60-99)
[2016-04-07 08:22] VITALS: BP 120/62
[2016-04-07] MEDS: Aspirin Baby 81mg ORAL SCH (08:29)
[2016-04-07] MEDS: Brimonidine 0.2% Opth Sol RIGHT EYE SCH ×2 (08:30→18:07)
[2016-04-07] MEDS ORDERED: Bystolic 2.5mg Tab ORAL SCH (09:00)
[2016-04-07 09:51] LABS: ALANINE AMINOTRANSFERASE 12 U/L (3-33); ALBUMIN/GLOBULIN RATIO 1.3 (1.0-2.7); ANION GAP 18 (5-15); ASPARTATE AMINO TRANSFERASE 14 U/L (5-40); CARBON DIOXIDE 24 mEQ/L (20-30); CHLORIDE 98 mEQ/L (98-107); CREATININE 1.2 mg/dL (0.5-0.9); HEMOLYSIS 5; POTASSIUM 4.2 mEQ/L (3.4-4.9); SODIUM 140 mEQ/L (135-145); TOTAL PROTEIN 7.1 g/dL (6.6-8.7)
[2016-04-07 11:38] VITALS: BP 111/63
--- NOTE | 2016-04-07 13:05 | History and Physical ---
History of Present Illness General Date patient seen: Apr 07, 2016 Time patient seen: 12:55 Reason for Hospitalization: syncope Present Illness HPI 85 year old female with hx of DM, HTN, early dementia, Assisted living resident , was taken to [facility] with CC of dizziness and weakness after taking shower. Pt was evaluation at the ER of [place] and then transferred to [facility] for further care. Currently pt is awake, stable, conversing in full sentences and wants to be discharged. Allergies: Coded Allergies: IODINE (Verified Allergy, Intermediate, 04/06/16) VALSARTAN (Verified Allergy, Unknown, 03/07/16) Medication History Scheduled Amlodipine Besylate (Norvasc), 2.5 MG ORAL BID Aspirin Ec* (Aspirin Ec*), 81 MG ORAL DAILY, (Reported) Brimonidine Tartrate* (Alphagan*), 1 DROP RIGHT EYE BID, (Reported) Megestrol Acetate (Megestrol Acetate), 625 MG PO DAILY, (Reported) Memantine Hcl (Namenda Xr), 28 MG PO DAILY, (Reported) Metformin Hcl* (Glucophage*), 500 MG ORAL BIDLS Multivitamin W-Minerals/Lutein (Cerovite Senior Tablet), 1 EACH PO DAILY, ( Reported) Nebivolol Hcl* (Bystolic*), 5 MG ORAL DAILY, (Reported) Pantoprazole* (Protonix*), 40 MG ORAL DAILY Sitagliptin (Januvia), 100 MG ORAL ACBREAKFAST Sitagliptin Phos/Metformin Hcl (Janumet 50-500 Mg Tablet), 1 TAB ORAL TWICE A DAY, (Reported) Travoprost (Travatan Z), 5 ML RIGHT EYE QHS, (Reported) Trimethoprim/Sulfamethoxazole (Bactrim Ds Tablet), 1 EA ORAL DAILY Scheduled PRN Acetaminophen* (Acetaminophen*), 650 MG ORAL Q4H PRN Patient History Healthcare decision maker Valentina Galarza (Daughter) Resuscitation status Full Code Advanced Directive on File Past Medical/Surgical History Past Medical/Surgical History: (1) HTN (hypertension) (2) Diabetes (3) Dementia Review of Systems Constitutional: Reports: no symptoms Eye: Reports: no symptoms ENT: Reports: no symptoms Physical Exam General Appearance: WD/WN Lines, tubes and drains: peripheral HEENT: normocephalic, atraumatic Neck: non-tender, normal alignment Respiratory/Chest: chest wall non-tender, lungs clear Cardiovascular/Chest: normal peripheral pulses, normal rate, regular rhythm Abdomen: normal bowel sounds, non tender, soft, no organomegaly, no mass Extremities: normal range of motion, non-tender, normal inspection Neurologic: gore cutter II-XII grossly normal Last 24 Hour Vital Signs Date Time Temp Pulse Resp B/P Pulse Ox O2 Delivery O2 Flow Rate FiO2 04/07/16 11:38 97.8 78 18 111/63 98 Room Air 04/07/16 08:30 85 120/62 04/07/16 08:22 97.7 85 18 120/62 100 Room Air 04/07/16 08:00 88 04/07/16 07:18 89 16 Room Air 04/07/16 04:10 98.0 88 20 142/64 98 Room Air 04/07/16 04:00 77 04/07/16 00:00 98.0 72 20 156/65 96 Room Air 04/07/16 00:00 82 04/06/16 22:12 87 136/61 04/06/16 20:26 87 16 Room Air 04/06/16 20:00 98.0 87 21 136/56 99 Room Air 04/06/16 20:00 88 04/06/16 16:00 87 Intake and Output 04/06/16 04/07/16 18:59 06:59 Intake Total 380 ml Balance 380 ml Intake Oral 380 ml Laboratory Tests Test 04/06/16 19:15 04/07/16 04:50 Troponin I < 0.30 ng/mL (<=0.30) < 0.30 ng/mL (<=0.30) White Blood Count 7.4 K/UL (4.8-10.8) Red Blood Count 3.93 M/UL (4.20-5.40) L Hemoglobin 12.0 G/DL (12.0-16.0) Hematocrit 36.2 % (37.0-47.0) L Mean Corpuscular Volume 92 FL (80-99) Mean Corpuscular Hemoglobin 30.6 PG (27.0-31.0) Mean Corpuscular Hemoglobin Concent 33.1 G/DL (32.0-36.0) Red Cell Distribution Width 13.2 % (11.6-14.8) Platelet Count 416 K/UL (150-450) Mean Platelet Volume 7.7 FL (6.5-10.1) Neutrophils (%) (Auto) 51.0 % (45.0-75.0) Lymphocytes (%) (Auto) 35.8 % (20.0-45.0) Monocytes (%) (Auto) 9.2 % (1.0-10.0) Eosinophils (%) (Auto) 2.0 % (0.0-3.0) Basophils (%) (Auto) 1.9 % (0.0-2.0) Prothrombin Time 11.3 SEC (9.30-11.50) Prothromb Time International Ratio 1.1 (0.9-1.1) Activated Partial Thromboplast Time 25 SEC (23-33) Sodium Level 140 mEQ/L (135-145) Potassium Level 4.2 mEQ/L (3.4-4.9) Chloride Level 98 mEQ/L (98-107) Carbon Dioxide Level 24 mEQ/L (20-30) Anion Gap 18 (5-15) H Blood Urea Nitrogen 17 mg/dL (7-23) Creatinine 1.2 mg/dL (0.5-0.9) H Estimat Glomerular Filtration Rate mL/min (>60) Glucose Level 186 mg/dL (74-106) H Calcium Level 10.0 mg/dL (8.6-10.2) Total Bilirubin 0.4 mg/dL (0.0-1.2) Aspartate Amino Transf (AST/SGOT) 14 U/L (5-40) Alanine Aminotransferase (ALT/SGPT) 12 U/L (3-33) Alkaline Phosphatase 57 U/L (35-104) C-Reactive Protein, Quantitative < 0.3 mg/dL (< 0.5) Total Protein 7.1 g/dL (6.6-8.7) Albumin 4.1 g/dL (3.5-5.2) Globulin 3.0 g/dL Albumin/Globulin Ratio 1.3 (1.0-2.7) Triglycerides Level 180 mg/dL (< 150) H Cholesterol Level 170 mg/dL (< 200) LDL Cholesterol 95 mg/dL (60-99) HDL Cholesterol 39 mg/dL (> 60) Cholesterol/HDL Ratio 4.4 (3.3-4.4) Thyroid Stimulating Hormone (TSH) 1.240 uIU/mL (0.300-4.500) Height (Feet): 5 Height (Inches): 3.00 Weight (Pounds): 134 Medications Current Medications Medications (Trade) Dose Ordered Sig/Jesenia Route PRN Reason Start Time Stop Time Status Last Admin Dose Admin Acetaminophen (Tylenol) 650 mg Q4H PRN ORAL FEVER 04/06/16 18:00 05/06/16 17:59 Albuterol/ Ipratropium (DuoNeb 0.5-3(2.5)mg/3ml) 3 ml EVERY 4 HOURS PRN HHN Shortness of Breath 04/06/16 18:00 04/11/16 17:59 Amlodipine Besylate (Norvasc) 2.5 mg Q12HR ORAL 04/06/16 21:00 05/06/16 20:59 04/07/16 08:30 Aspirin (ASA) 162 mg DAILY ORAL 04/07/16 09:00 05/07/16 08:59 04/07/16 08:29 Brimonidine Tartrate (Alphagan) 1 drop BID RIGHT EYE 04/06/16 21:30 05/06/16 21:29 04/07/16 08:30 Dextrose (Dextrose 50%) STAT PRN IV Hypoglycemia 04/06/16 18:00 05/06/16 17:59 Diltiazem HCl (Cardizem) 10 mg EVERY HOUR PRN IV heart rate more than 120, 04/06/16 18:00 05/06/16 17:59 Donepezil HCl (Aricept) 10 mg QHS ORAL 04/06/16 21:00 05/06/16 20:59 04/06/16 22:11 Enalaprilat (Vasotec) 2.5 mg EVERY 6 HOURS PRN IV sbp more than 160 04/06/16 18:00 05/06/16 17:59 Heparin Sodium (Porcine) (Heparin 5000 units/ml) 5,000 units EVERY 8 HOURS SUBQ 04/06/16 22:00 05/06/16 21:59 04/07/16 06:08 Insulin Aspart (NovoLOG) BEFORE MEALS AND HS SUBQ 04/06/16 21:00 05/06/16 20:59 04/07/16 11:59 Ketorolac Tromethamine (Toradol 30mg) 30 mg Q6HR PRN IV moderate pain ( 4-6) 04/06/16 18:00 04/11/16 17:59 Latanoprost (Xalatan) 1 drop BEDTIME RIGHT EYE 04/06/16 21:00 05/06/16 20:59 04/06/16 22:12 Morphine Sulfate (Morphine Sulfate) 2 mg EVERY 4 HOURS PRN IVP severe Pain (Pain Scale 7-10) 04/06/16 18:00 04/13/16 17:59 Nebivolol (Bystolic) 5 mg DAILY ORAL 04/07/16 09:00 05/07/16 08:59 Nitroglycerin (Ntg) 0.4 mg Q5M PRN SL Prn Chest Pain 04/06/16 18:00 05/06/16 17:59 Ondansetron HCl (Zofran) 4 mg Q6H PRN IVP Nausea & Vomiting 04/06/16 18:00 05/06/16 17:59 Pantoprazole (Protonix) 40 mg DAILY ORAL 04/07/16 09:00 05/07/16 08:59 04/07/16 08:30 Polyethylene Glycol (Miralax) 17 gm DAILYPRN PRN ORAL Constipation 04/06/16 18:00 05/06/16 17:59 Sitagliptin Phosphate (Januvia) 100 mg ACBREAKFAST ORAL 04/07/16 06:30 05/07/16 06:29 04/07/16 06:15 Temazepam (Restoril) 15 mg HSPRN PRN ORAL Insomnia 04/06/16 18:00 04/13/16 17:59 Assessment/Plan Problem List: (1) Acute encephalopathy ICD Codes: G93.40 - Encephalopathy, unspecified SNOMED: 3298229 (2) Dizziness ICD Codes: R42 - Dizziness and giddiness SNOMED: 186156368, 695593238 (3) Syncope ICD Codes: R55 - Syncope and collapse SNOMED: 513942484 (4) Dementia ICD Codes: F03.90 - Unspecified dementia without behavioral disturbance SNOMED: 91433916 (5) Diabetes ICD Codes: E11.9 - Type 2 diabetes mellitus without complications SNOMED: 91359801 (6) HTN (hypertension) ICD Codes: I10 - Essential (primary) hypertension SNOMED: 18646036 Assessment/Plan serial ekg telemetry echo cardiology evaluation serial troponin sliding scale diabetic diet FILIPPO HUBBARD Apr 07, 2016 13:05
--- NOTE | 2016-04-07 14:26 | Consultation ---
Consult Note Consult Note Known to me from her previous admission- Transfered from [place] Assessment/Plan - Dizziness, ? presyncopal. - h/o Hypertensive emergency. - h/o Evidence of urinary tract infection. - High A1c - DM - Nephropathy Previous Neuro ruiz and exam: The patient's history, neurological examination, and laboratory data are most compatible with unsteadiness on her feet due to neuropathic process most probably related to diabetes mellitus. 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 Plan: check UA- Hold Beta blockers- Resume Glucophage- Stop Mind altering meds which cause side effect- PT OT- adjust Diabetic medications- Per orders DAVIDA SUMMERS Apr 07, 2016 14:26
[2016-04-07 16:00] VITALS: BP 118/60
--- NOTE | 2016-04-07 16:03 | Cardiology Progress Note ---
Subjective Subjective [id number] Objective Last 24 Hour Vital Signs Date Time Temp Pulse Resp B/P Pulse Ox O2 Delivery O2 Flow Rate FiO2 04/07/16 11:38 97.8 78 18 111/63 98 Room Air 04/07/16 08:30 85 120/62 04/07/16 08:22 97.7 85 18 120/62 100 Room Air 04/07/16 08:00 88 04/07/16 07:18 89 16 Room Air 04/07/16 04:10 98.0 88 20 142/64 98 Room Air 04/07/16 04:00 77 04/07/16 00:00 98.0 72 20 156/65 96 Room Air 04/07/16 00:00 82 04/06/16 22:12 87 136/61 04/06/16 20:26 87 16 Room Air 04/06/16 20:00 98.0 87 21 136/56 99 Room Air 04/06/16 20:00 88 Intake and Output 04/06/16 04/07/16 19:00 07:00 Intake Total 380 ml Balance 380 ml Intake Oral 380 ml Laboratory Tests Test 04/06/16 19:15 04/07/16 04:50 Troponin I < 0.30 ng/mL (<=0.30) < 0.30 ng/mL (<=0.30) White Blood Count 7.4 K/UL (4.8-10.8) Red Blood Count 3.93 M/UL (4.20-5.40) L Hemoglobin 12.0 G/DL (12.0-16.0) Hematocrit 36.2 % (37.0-47.0) L Mean Corpuscular Volume 92 FL (80-99) Mean Corpuscular Hemoglobin 30.6 PG (27.0-31.0) Mean Corpuscular Hemoglobin Concent 33.1 G/DL (32.0-36.0) Red Cell Distribution Width 13.2 % (11.6-14.8) Platelet Count 416 K/UL (150-450) Mean Platelet Volume 7.7 FL (6.5-10.1) Neutrophils (%) (Auto) 51.0 % (45.0-75.0) Lymphocytes (%) (Auto) 35.8 % (20.0-45.0) Monocytes (%) (Auto) 9.2 % (1.0-10.0) Eosinophils (%) (Auto) 2.0 % (0.0-3.0) Basophils (%) (Auto) 1.9 % (0.0-2.0) Prothrombin Time 11.3 SEC (9.30-11.50) Prothromb Time International Ratio 1.1 (0.9-1.1) Activated Partial Thromboplast Time 25 SEC (23-33) Sodium Level 140 mEQ/L (135-145) Potassium Level 4.2 mEQ/L (3.4-4.9) Chloride Level 98 mEQ/L (98-107) Carbon Dioxide Level 24 mEQ/L (20-30) Anion Gap 18 (5-15) H Blood Urea Nitrogen 17 mg/dL (7-23) Creatinine 1.2 mg/dL (0.5-0.9) H Estimat Glomerular Filtration Rate mL/min (>60) Glucose Level 186 mg/dL (74-106) H Calcium Level 10.0 mg/dL (8.6-10.2) Total Bilirubin 0.4 mg/dL (0.0-1.2) Aspartate Amino Transf (AST/SGOT) 14 U/L (5-40) Alanine Aminotransferase (ALT/SGPT) 12 U/L (3-33) Alkaline Phosphatase 57 U/L (35-104) C-Reactive Protein, Quantitative < 0.3 mg/dL (< 0.5) Total Protein 7.1 g/dL (6.6-8.7) Albumin 4.1 g/dL (3.5-5.2) Globulin 3.0 g/dL Albumin/Globulin Ratio 1.3 (1.0-2.7) Triglycerides Level 180 mg/dL (< 150) H Cholesterol Level 170 mg/dL (< 200) LDL Cholesterol 95 mg/dL (60-99) HDL Cholesterol 39 mg/dL (> 60) Cholesterol/HDL Ratio 4.4 (3.3-4.4) Thyroid Stimulating Hormone (TSH) 1.240 uIU/mL (0.300-4.500) FER KELLEY Apr 07, 2016 16:03
[2016-04-07] MEDS: metFORMIN 500mg tab ORAL SCH (18:07)
[2016-04-07 20:00] VITALS: BP 120/61
--- NOTE | 2016-04-07 20:56 | Cardiology Report ---
APPROVED REPORT EXAM: Two-dimensional and M-mode echocardiogram with Doppler and color Doppler. INDICATION Left ventricular function Technically difficult study due to poor acoustic windows. Normal left ventricular chamber size, systolic function and wall motion. Left ventricular ejection fraction estimated to be 60-65 %. No evidence of left ventricular hypertrophy. No evidence of pericardial fat or effusion. All other cardiac chamber sizes are within normal limits. Focal aortic valve sclerosis with adequate cusp excursion Thickened mitral valve leaflets with normal excursion. Mild mitral annulus and aortic root calcification. Pulmonic valve not well visualized. Normal tricuspid valve structure. IVC is normal in size with physiologic collapse. A color flow and spectral Doppler study was performed and revealed: No aortic regurgitation. No mitral regurgitation. Left ventricular diastolic dysfunction grade 1. Trace tricuspid regurgitation. Tricuspid systolic velocities suggests peak right ventricular systolic pressure of 10 mmHg
[2016-04-07] MEDS: Donepezil 10mg tab ORAL SCH (21:18)
--- NOTE | 2016-04-07 22:29 | Consultation ---
DATE OF CONSULTATION: 04/07/2016 CARDIOLOGY CONSULTATION REFERRING PHYSICIAN: Souleymane Crow M.D. This consultation is done as a coverage for Dr. Oscar Sanon. HISTORY OF PRESENT ILLNESS: History of present illness is taken from reviewing the chart and discussing with the patient. She is a kiersten 85-year-old female, who reports that she feels dizzy when she gets up, when she is standing or sitting. Yesterday or day before, she was taking a shower and in the shower she felt that she was just about to faint, so she came out of the shower and she told the attendant. She lives at [facility] and the person at [facility] called the ambulance and she ended up at [place] and then she was transferred here. She actually told me that she was in the hospital three times during last year because of UTI and she thinks she still has UTI. She does not understand why it could not be cured, then she said all the troubles are coming from there. PAST MEDICAL HISTORY: Significant for hypertension and diabetes. PAST SURGICAL HISTORY: Remarkable for appendectomy. HOME MEDICATIONS: Reviewed and reconciled. ALLERGIES: She is allergic to iodine contrast. HABITS: She denies any history of drinking, smoking, or drug abuse. SOCIAL HISTORY: She lives in assisted living. She requires assistance with some activities obviously. REVIEW OF SYSTEMS: The patient is preserved, hearing is preserved. She does not have nausea and no chest pain. She did not have any history of seizures. She has no history of congestive heart failure or heart attack. Her coronary risk factors include hypertension, diabetes, and age. Her lipids are unknown at this time. PHYSICAL EXAMINATION: GENERAL: This is a pleasant female resting in bed without any acute distress. VITAL SIGNS: Blood pressure 120/70, heart rate is 85, oxygen saturation 97% on room air, and temperature is normal. HEENT: PERRLA. EOMI. NECK: Supple. Jugular pressure is not elevated. Carotid upstroke is preserved. There is no bruit. Neck veins are not distended. No thyromegaly. LUNGS: Clear to auscultation bilaterally. HEART: PMI is palpable in the sixth intercostal space and midclavicular line. She has slightly diminished S1. She has systolic ejection murmur on the order of 2/6 murmur radiating. BREAST: No masses. ABDOMEN: Distended, soft, no masses palpable. No rebound, no guarding. EXTREMITIES: Lower extremities, no edema. There is a small scar on the left side, on the left pretibial area well-healed. Distal pulses palpable. NEUROLOGICAL: She is intact. LABORATORY AND DIAGNOSTIC DATA: Her EKG shows LVH with some nonspecific ST changes. Chest x-ray is unremarkable. Her laboratory data all reviewed and they are essentially unremarkable. Creatinine 1.2. Glucose 186. LDL is 95. An echocardiogram was reviewed, the report was reviewed as well. IMPRESSION AND RECOMMENDATION: Presyncope, syncope sounds like orthostatic, could be due to diabetes or dehydration, may be she has UTI and she needs evaluation for that. That is going to be discussed with primary care coordinator. I am going to order orthostatics. Thank you very much for your consultation. I will follow this patient. Dr. Sanon is going to review follow up for this patient tomorrow morning. Argelia Vasquez M.D. DR: MUNA JOB#: [id number] CC:
[2016-04-08 00:56] VITALS: BP_SYST 126; BP_SYST 146; BP_SYST 156; BP_DIAS 81; BP_DIAS 83; BP_DIAS 85
[2016-04-08 04:04] VITALS: BP 138/77
[2016-04-08 07:29] LABS: TROPONIN I < 0.30 ng/mL (<=0.30)
[2016-04-08] MEDS: Heparin 5000 units/ml inj SUBQ SCH ×4 (07:29→22:03)
[2016-04-08] MEDS: metFORMIN 500mg tab ORAL SCH ×3 (07:29→17:59)
[2016-04-08 07:32] LABS: ALANINE AMINOTRANSFERASE 13 U/L (3-33); ALBUMIN/GLOBULIN RATIO 1.7 (1.0-2.7); ANION GAP 18 (5-15); ASPARTATE AMINO TRANSFERASE 12 U/L (5-40); CALCIUM 9.8 mg/dL (8.6-10.2); CARBON DIOXIDE 23 mEQ/L (20-30); CHLORIDE 100 mEQ/L (98-107); CREATININE 1.2 mg/dL (0.5-0.9); CRP QUANT < 0.3 mg/dL (< 0.5); HEMOLYSIS 0; MAGNESIUM 1.8 mg/dL (1.7-2.5); PHOSPHORUS 3.8 mg/dL (2.5-4.8); POTASSIUM 4.4 mEQ/L (3.4-4.9); SODIUM 141 mEQ/L (135-145); TOTAL PROTEIN 6.6 g/dL (6.6-8.7); URIC ACID 2.8 mg/dL (3.0-7.5)
[2016-04-08 07:33] LABS: BASOPHILS % (AUTO) 2.3 % (0.0-2.0); EOSINOPHILS % (AUTO) 2.5 % (0.0-3.0); LYMPHOCYTES % (AUTO) 34.5 % (20.0-45.0); MEAN CORPUSCULAR HEMOGLOBIN 30.7 PG (27.0-31.0); MEAN CORPUSCULAR HGB CONC 33.3 G/DL (32.0-36.0); MEAN CORPUSCULAR VOLUME 92 FL (80-99); MEAN PLATELET VOLUME 7.4 FL (6.5-10.1); MONOCYTES % (AUTO) 8.5 % (1.0-10.0); NEUTROPHILS % (AUTO) 52.1 % (45.0-75.0); PLATELET COUNT 395 K/UL (150-450); RED BLOOD COUNT 4.04 M/UL (4.20-5.40); RED CELL DISTRIBUTION WIDTH 13.4 % (11.6-14.8); WHITE BLOOD COUNT 8.3 K/UL (4.8-10.8)
[2016-04-08 08:00] VITALS: BP 125/60
[2016-04-08] MEDS: Brimonidine 0.2% Opth Sol RIGHT EYE SCH ×2 (09:17→18:00)
[2016-04-08] MEDS: Aspirin Baby 81mg ORAL SCH (09:18)
[2016-04-08 09:23] LABS: APPEARANCE,URINE CLEAR; KETONES,URINE NEGATIVE (NEGATIVE); LEUKOCYTE ESTERASE ,URINE 1+ (NEGATIVE); NITRITE,URINE NEGATIVE (NEGATIVE); PH,URINE 7 (4.5-8.0); PROTEIN,URINE NEGATIVE (NEGATIVE); UROBILINOGEN,URINE NORMAL MG/DL (0.0-1.0)
[2016-04-08 09:37] LABS: BACTERIA,URINE OCCASIONAL /HPF; RBC,URINE 0-2 /HPF (0 - 2); SQUAMOUS EPITHELIAL CELL,UR FEW /LPF (NONE/OCC)
--- NOTE | 2016-04-08 11:20 | General Progress Note ---
Assessment/Plan Status: stable Assessment/Plan - Dizziness, ? presyncopal. - HTN - h/o Hypertensive emergency. - h/o Evidence of urinary tract infection. - High A1c - DM - Nephropathy Previous Neuro ruiz and exam: The patient's history, neurological examination, and laboratory data are most compatible with unsteadiness on her feet due to neuropathic process most probably related to diabetes mellitus. 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 Plan: Hold Beta blockers- Resume Glucophage- Stop Mind altering meds which cause side effect- PT OT- adjust Diabetic medications- Per orders ? Dc planning? Subjective ROS Limited/Unobtainable: No Constitutional: Reports: malaise Allergies: Coded Allergies: IODINE (Verified Allergy, Intermediate, 04/06/16) VALSARTAN (Verified Allergy, Unknown, 03/07/16) Objective Last 24 Hour Vital Signs Date Time Temp Pulse Resp B/P Pulse Ox O2 Delivery O2 Flow Rate FiO2 04/08/16 09:30 93 16 Room Air 21 04/08/16 09:18 91 125/60 04/08/16 08:00 118 04/08/16 08:00 98.1 91 18 125/60 99 Room Air 04/08/16 04:04 97.8 108 19 138/77 96 Room Air 04/08/16 03:54 82 04/08/16 00:56 98.5 88 18 126/83 99 Room Air 146/85 156/81 04/08/16 00:13 88 04/07/16 20:00 97.5 81 18 120/61 96 Room Air 04/07/16 20:00 89 04/07/16 16:00 85 04/07/16 16:00 97.8 83 18 118/60 97 Room Air 04/07/16 11:38 97.8 78 18 111/63 98 Room Air Intake and Output 04/07/16 04/08/16 19:00 07:00 Intake Total 600 ml 200 ml Balance 600 ml 200 ml Intake Oral 600 ml 200 ml # Voids 2 5 # Bowel Movements 3 Laboratory Tests 04/08/16 04:45: White Blood Count 8.3, Red Blood Count 4.04L, Hemoglobin 12.4, Hematocrit 37.2, Mean Corpuscular Volume 92, Mean Corpuscular Hemoglobin 30.7, Mean Corpuscular Hemoglobin Concent 33.3, Red Cell Distribution Width 13.4, Platelet Count 395, Mean Platelet Volume 7.4, Neutrophils (%) (Auto) 52.1, Lymphocytes (%) (Auto) 34.5, Monocytes (%) (Auto) 8.5, Eosinophils (%) (Auto) 2.5, Basophils (%) (Auto ) 2.3H, Sodium Level 141, Potassium Level 4.4, Chloride Level 100, Carbon Dioxide Level 23, Anion Gap 18H, Blood Urea Nitrogen 16, Creatinine 1.2H, Estimat Glomerular Filtration Rate , Glucose Level 182H, Uric Acid 2.8L, Calcium Level 9.8, Phosphorus Level 3.8, Magnesium Level 1.8, Total Bilirubin 0.3, Aspartate Amino Transf (AST/SGOT) 12, Alanine Aminotransferase (ALT/SGPT) 13, Alkaline Phosphatase 58, Troponin I < 0.30, C-Reactive Protein, Quantitative < 0.3, Pro-B-Type Natriuretic Peptide 72, Total Protein 6.6, Albumin 4.2, Globulin 2.4, Albumin/Globulin Ratio 1.7, Thyroid Stimulating Hormone (TSH) 1.790 04/08/16 08:20: Urine Color Yellow, Urine Appearance Clear, Urine pH 7, Urine Specific [place] 1.005, Urine Protein Negative, Urine Glucose (UA) Negative, Urine Ketones Negative, Urine Occult Blood Negative, Urine Nitrite Negative, Urine Bilirubin Negative, Urine Urobilinogen Normal, Urine Leukocyte Esterase 1+H, Urine RBC 0-2 , Urine WBC 2-4, Urine Squamous Epithelial Cells Few, Urine Bacteria Occasional Height (Feet): 5 Height (Inches): 3.00 Weight (Pounds): 134 General Appearance: no apparent distress Cardiovascular: regular rhythm - 90s DAVIDA SUMMERS Apr 08, 2016 11:20
[2016-04-08 11:21] VITALS: BP 116/58
--- NOTE | 2016-04-08 13:29 | Pulmonology Progress Note ---
Assessment/Plan Problems: (1) Acute encephalopathy (2) Dizziness (3) Syncope (4) Dementia (5) Diabetes (6) HTN (hypertension) Assessment/Plan orthostatic bp cardio evaluation echo, doppler of carotid artery f/u by cardiology, can go home if ok with cardio. Subjective Interval Events: no new complains Constitutional: Reports: no symptoms HEENT: Repors: no symptoms Allergies: Coded Allergies: IODINE (Verified Allergy, Intermediate, 04/06/16) VALSARTAN (Verified Allergy, Unknown, 03/07/16) Objective Last 24 Hour Vital Signs Date Time Temp Pulse Resp B/P Pulse Ox O2 Delivery O2 Flow Rate FiO2 04/08/16 11:45 120 04/08/16 11:40 111 04/08/16 11:35 90 04/08/16 11:21 98.3 111 18 116/58 100 Room Air 04/08/16 09:30 93 16 Room Air 21 04/08/16 09:18 91 125/60 04/08/16 08:00 118 04/08/16 08:00 98.1 91 18 125/60 99 Room Air 04/08/16 04:04 97.8 108 19 138/77 96 Room Air 04/08/16 03:54 82 04/08/16 00:56 98.5 88 18 126/83 99 Room Air 146/85 156/81 04/08/16 00:13 88 04/07/16 20:00 97.5 81 18 120/61 96 Room Air 04/07/16 20:00 89 04/07/16 16:00 85 04/07/16 16:00 97.8 83 18 118/60 97 Room Air Intake and Output 04/07/16 04/08/16 19:00 07:00 Intake Total 600 ml 200 ml Balance 600 ml 200 ml Intake Oral 600 ml 200 ml # Voids 2 5 # Bowel Movements 3 General Appearance: WD/WN HEENT: normocephalic Respiratory/Chest: chest wall non-tender, lungs clear Breasts: no masses Cardiovascular: normal peripheral pulses, normal rate Abdomen: normal bowel sounds, soft, non tender Genitourinary: normal external genitalia Extremities: no cyanosis, no clubbing Skin: no rash Neurologic/Psychiatric: cancer genetic counselor II-XII grossly normal, no motor/sensory deficits Lymphatic: no neck adenopathy Microbiology Date/Time Source Procedure Growth Status 04/06/16 19:00 Nasal Nares MRSA Culture - Final NO METHICILLIN RESISTANT STAPH AUREUS... Complete 04/06/16 19:00 Rectum VRE Culture - Final NO VANCOMYCIN RESISTANT ENTEROCOCCUS ... Complete Laboratory Tests 04/08/16 04:45: White Blood Count 8.3, Red Blood Count 4.04L, Hemoglobin 12.4, Hematocrit 37.2, Mean Corpuscular Volume 92, Mean Corpuscular Hemoglobin 30.7, Mean Corpuscular Hemoglobin Concent 33.3, Red Cell Distribution Width 13.4, Platelet Count 395, Mean Platelet Volume 7.4, Neutrophils (%) (Auto) 52.1, Lymphocytes (%) (Auto) 34.5, Monocytes (%) (Auto) 8.5, Eosinophils (%) (Auto) 2.5, Basophils (%) (Auto ) 2.3H, Sodium Level 141, Potassium Level 4.4, Chloride Level 100, Carbon Dioxide Level 23, Anion Gap 18H, Blood Urea Nitrogen 16, Creatinine 1.2H, Estimat Glomerular Filtration Rate , Glucose Level 182H, Uric Acid 2.8L, Calcium Level 9.8, Phosphorus Level 3.8, Magnesium Level 1.8, Total Bilirubin 0.3, Aspartate Amino Transf (AST/SGOT) 12, Alanine Aminotransferase (ALT/SGPT) 13, Alkaline Phosphatase 58, Troponin I < 0.30, C-Reactive Protein, Quantitative < 0.3, Pro-B-Type Natriuretic Peptide 72, Total Protein 6.6, Albumin 4.2, Globulin 2.4, Albumin/Globulin Ratio 1.7, Thyroid Stimulating Hormone (TSH) 1.790 04/08/16 08:20: Urine Color Yellow, Urine Appearance Clear, Urine pH 7, Urine Specific [place] 1.005, Urine Protein Negative, Urine Glucose (UA) Negative, Urine Ketones Negative, Urine Occult Blood Negative, Urine Nitrite Negative, Urine Bilirubin Negative, Urine Urobilinogen Normal, Urine Leukocyte Esterase 1+H, Urine RBC 0-2 , Urine WBC 2-4, Urine Squamous Epithelial Cells Few, Urine Bacteria Occasional Current Medications Medications (Trade) Dose Ordered Sig/Jesenia Route PRN Reason Start Time Stop Time Status Last Admin Dose Admin Acetaminophen (Tylenol) 650 mg Q4H PRN ORAL FEVER 04/06/16 18:00 05/06/16 17:59 Albuterol/ Ipratropium (DuoNeb 0.5-3(2.5)mg/3ml) 3 ml EVERY 4 HOURS PRN HHN Shortness of Breath 04/06/16 18:00 04/11/16 17:59 Amlodipine Besylate (Norvasc) 2.5 mg BID ORAL 04/08/16 09:00 05/08/16 08:59 04/08/16 09:18 Aspirin (ASA) 162 mg DAILY ORAL 04/07/16 09:00 05/07/16 08:59 04/08/16 09:18 Brimonidine Tartrate (Alphagan) 1 drop BID RIGHT EYE 04/06/16 21:30 05/06/16 21:29 04/08/16 09:17 Dextrose (Dextrose 50%) STAT PRN IV Hypoglycemia 04/06/16 18:00 05/06/16 17:59 Donepezil HCl (Aricept) 10 mg QHS ORAL 04/06/16 21:00 05/06/16 20:59 04/07/16 21:18 Enalaprilat (Vasotec) 2.5 mg EVERY 6 HOURS PRN IV sbp more than 160 04/06/16 18:00 05/06/16 17:59 Heparin Sodium (Porcine) (Heparin 5000 units/ml) 5,000 units EVERY 8 HOURS SUBQ 04/06/16 22:00 05/06/16 21:59 04/08/16 07:29 Insulin Aspart (NovoLOG) BEFORE MEALS AND HS SUBQ 04/08/16 16:30 05/08/16 16:29 Latanoprost (Xalatan) 1 drop BEDTIME RIGHT EYE 04/06/16 21:00 05/06/16 20:59 04/07/16 21:18 Metformin HCl (Glucophage) 500 mg TIAC ORAL 04/07/16 16:30 05/07/16 16:29 04/08/16 11:16 Nitroglycerin (Ntg) 0.4 mg Q5M PRN SL Prn Chest Pain 04/06/16 18:00 05/06/16 17:59 Ondansetron HCl (Zofran) 4 mg Q6H PRN IVP Nausea & Vomiting 04/06/16 18:00 05/06/16 17:59 Pantoprazole (Protonix) 40 mg DAILY ORAL 04/07/16 09:00 05/07/16 08:59 04/08/16 09:18 Polyethylene Glycol (Miralax) 17 gm DAILYPRN PRN ORAL Constipation 04/06/16 18:00 05/06/16 17:59 Sitagliptin Phosphate (Januvia) 100 mg ACBREAKFAST ORAL 04/07/16 06:30 05/07/16 06:29 04/08/16 07:29 Temazepam (Restoril) 15 mg HSPRN PRN ORAL Insomnia 04/06/16 18:00 04/13/16 17:59 FILIPPO HUBBARD Apr 08, 2016 13:29
[2016-04-08 16:00] VITALS: BP 118/58
[2016-04-08] MEDS: NovoLOG Insulin Flexpen SUBQ SCH ×2 (16:30→22:00)
[2016-04-08 20:00] VITALS: BP 101/53
--- NOTE | 2016-04-08 20:18 | Cardiology Progress Note ---
Assessment/Plan Assessment/Plan syncoep with hs of swem demetia dm htn still volume depleted hr increased form 90 to 120 bpm on orthostatic check will give more ivf overnite if neg orthostatic will be ok to dc to board and care in am tele neg all trop neg would decrease Norvasc and bel tolerant of higher limit fo bp lab ntoed d/w pt agreeable Subjective Cardiovascular: Reports: chest pain, Denies: lightheadedness, palpitations Respiratory: Denies: shortness of breath Gastrointestinal/Abdominal: Denies: abdominal pain Genitourinary: Denies: burning Subjective need help walking Objective Last 24 Hour Vital Signs Date Time Temp Pulse Resp B/P Pulse Ox O2 Delivery O2 Flow Rate FiO2 04/08/16 18:00 84 118/58 04/08/16 16:35 84 04/08/16 16:00 97.8 86 20 118/58 99 Room Air 04/08/16 12:00 92 04/08/16 11:45 120 04/08/16 11:40 111 04/08/16 11:35 90 04/08/16 11:21 98.3 111 18 116/58 100 Room Air 04/08/16 09:30 93 16 Room Air 21 04/08/16 09:18 91 125/60 04/08/16 08:00 118 04/08/16 08:00 98.1 91 18 125/60 99 Room Air 04/08/16 04:04 97.8 108 19 138/77 96 Room Air 04/08/16 03:54 82 04/08/16 00:56 98.5 88 18 126/83 99 Room Air 146/85 156/81 04/08/16 00:13 88 General Appearance: no apparent distress, alert Neck: no JVD Cardiovascular: normal rate, regular rhythm Respiratory/Chest: lungs clear, normal breath sounds Abdomen: normal bowel sounds, non tender, soft Extremities: no swelling Intake and Output 04/07/16 04/08/16 19:00 07:00 Intake Total 600 ml 200 ml Balance 600 ml 200 ml Intake Oral 600 ml 200 ml # Voids 2 5 # Bowel Movements 3 Laboratory Tests Test 04/08/16 04:45 04/08/16 08:20 White Blood Count 8.3 K/UL (4.8-10.8) Red Blood Count 4.04 M/UL (4.20-5.40) L Hemoglobin 12.4 G/DL (12.0-16.0) Hematocrit 37.2 % (37.0-47.0) Mean Corpuscular Volume 92 FL (80-99) Mean Corpuscular Hemoglobin 30.7 PG (27.0-31.0) Mean Corpuscular Hemoglobin Concent 33.3 G/DL (32.0-36.0) Red Cell Distribution Width 13.4 % (11.6-14.8) Platelet Count 395 K/UL (150-450) Mean Platelet Volume 7.4 FL (6.5-10.1) Neutrophils (%) (Auto) 52.1 % (45.0-75.0) Lymphocytes (%) (Auto) 34.5 % (20.0-45.0) Monocytes (%) (Auto) 8.5 % (1.0-10.0) Eosinophils (%) (Auto) 2.5 % (0.0-3.0) Basophils (%) (Auto) 2.3 % (0.0-2.0) H Sodium Level 141 mEQ/L (135-145) Potassium Level 4.4 mEQ/L (3.4-4.9) Chloride Level 100 mEQ/L (98-107) Carbon Dioxide Level 23 mEQ/L (20-30) Anion Gap 18 (5-15) H Blood Urea Nitrogen 16 mg/dL (7-23) Creatinine 1.2 mg/dL (0.5-0.9) H Estimat Glomerular Filtration Rate mL/min (>60) Glucose Level 182 mg/dL (74-106) H Uric Acid 2.8 mg/dL (3.0-7.5) L Calcium Level 9.8 mg/dL (8.6-10.2) Phosphorus Level 3.8 mg/dL (2.5-4.8) Magnesium Level 1.8 mg/dL (1.7-2.5) Total Bilirubin 0.3 mg/dL (0.0-1.2) Aspartate Amino Transf (AST/SGOT) 12 U/L (5-40) Alanine Aminotransferase (ALT/SGPT) 13 U/L (3-33) Alkaline Phosphatase 58 U/L (35-104) Troponin I < 0.30 ng/mL (<=0.30) C-Reactive Protein, Quantitative < 0.3 mg/dL (< 0.5) Pro-B-Type Natriuretic Peptide 72 pg/mL (0-450) Total Protein 6.6 g/dL (6.6-8.7) Albumin 4.2 g/dL (3.5-5.2) Globulin 2.4 g/dL Albumin/Globulin Ratio 1.7 (1.0-2.7) Thyroid Stimulating Hormone (TSH) 1.790 uIU/mL (0.300-4.500) Urine Color Yellow Urine Appearance Clear Urine pH 7 (4.5-8.0) Urine Specific [place] 1.005 (1.005-1.035) Urine Protein Negative (NEGATIVE) Urine Glucose (UA) Negative (NEGATIVE) Urine Ketones Negative (NEGATIVE) Urine Occult Blood Negative (NEGATIVE) Urine Nitrite Negative (NEGATIVE) Urine Bilirubin Negative (NEGATIVE) Urine Urobilinogen Normal MG/DL (0.0-1.0) Urine Leukocyte Esterase 1+ (NEGATIVE) H Urine RBC 0-2 /HPF (0 - 2) Urine WBC 2-4 /HPF (0 - 2) Urine Squamous Epithelial Cells Few /LPF (NONE/OCC) Urine Bacteria Occasional /HPF (NONE) Microbiology Date/Time Source Procedure Growth Status 04/06/16 19:00 Nasal Nares MRSA Culture - Final NO METHICILLIN RESISTANT STAPH AUREUS... Complete 04/06/16 19:00 Rectum VRE Culture - Final NO VANCOMYCIN RESISTANT ENTEROCOCCUS ... Complete LORRIE SHIN Apr 08, 2016 20:18
[2016-04-08] MEDS: Donepezil 10mg tab ORAL SCH (22:01)
[2016-04-09] VITALS: BP 124/65
[2016-04-09 04:00] VITALS: BP 131/61
[2016-04-09] MEDS: NovoLOG Insulin Flexpen SUBQ SCH ×4 (06:27→21:59)
[2016-04-09] MEDS: Heparin 5000 units/ml inj SUBQ SCH ×2 (06:40→13:16)
[2016-04-09] MEDS: metFORMIN 500mg tab ORAL SCH ×3 (06:40→16:55)
[2016-04-09 08:00] VITALS: BP 121/62
[2016-04-09 08:13] LABS: ANION GAP 16 (5-15); CALCIUM 9.2 mg/dL (8.6-10.2); CARBON DIOXIDE 21 mEQ/L (20-30); CHLORIDE 105 mEQ/L (98-107); CREATININE 1.1 mg/dL (0.5-0.9); HEMOLYSIS 3; POTASSIUM 4.2 mEQ/L (3.4-4.9); SODIUM 142 mEQ/L (135-145)
[2016-04-09] MEDS: Brimonidine 0.2% Opth Sol RIGHT EYE SCH ×2 (08:43→18:33)
[2016-04-09] MEDS: Aspirin Baby 81mg ORAL SCH (08:44)
--- NOTE | 2016-04-09 09:17 | Cardiology Progress Note ---
Assessment/Plan Assessment/Plan syncoep with hs of melindam demetia dm htn not orthostatic this am ok to dc to board and care froam cardiac point of view , seem unsteady per rn may need PT to evaluate tele neg all trop neg would decrease Norvasc and be tolerant of higher limit fo bp lab noted Subjective Cardiovascular: Denies: chest pain, lightheadedness, palpitations Respiratory: Denies: SOB with excertion Gastrointestinal/Abdominal: Denies: abdominal pain Genitourinary: Denies: burning Subjective needed help walking Objective Last 24 Hour Vital Signs Date Time Temp Pulse Resp B/P Pulse Ox O2 Delivery O2 Flow Rate FiO2 04/09/16 08:46 92 121/62 04/09/16 04:00 98.1 88 20 131/61 98 Room Air 04/09/16 01:46 94 04/09/16 00:00 98.1 83 18 124/65 98 Room Air 04/08/16 21:00 70 76 80 04/08/16 20:09 104 04/08/16 20:00 97.8 86 20 101/53 98 Room Air 04/08/16 19:30 90 16 Room Air 21 04/08/16 18:00 84 118/58 04/08/16 16:35 84 04/08/16 16:00 97.8 86 20 118/58 99 Room Air 04/08/16 12:00 92 04/08/16 11:45 120 04/08/16 11:40 111 04/08/16 11:35 90 04/08/16 11:21 98.3 111 18 116/58 100 Room Air 04/08/16 09:30 93 16 Room Air 21 04/08/16 09:18 91 125/60 General Appearance: no apparent distress, alert Neck: supple Cardiovascular: normal rate, regular rhythm Respiratory/Chest: chest wall non-tender, lungs clear, normal breath sounds Abdomen: normal bowel sounds, non tender, soft Extremities: no swelling Intake and Output 04/08/16 04/09/16 19:00 07:00 Intake Total 440 ml 1173.33 ml Balance 440 ml 1173.33 ml Intake Oral 440 ml 380 ml IV Total 793.33 ml # Voids 2 4 # Bowel Movements 1 Laboratory Tests Test 04/09/16 07:05 Sodium Level 142 mEQ/L (135-145) Potassium Level 4.2 mEQ/L (3.4-4.9) Chloride Level 105 mEQ/L (98-107) Carbon Dioxide Level 21 mEQ/L (20-30) Anion Gap 16 (5-15) H Blood Urea Nitrogen 14 mg/dL (7-23) Creatinine 1.1 mg/dL (0.5-0.9) H Estimat Glomerular Filtration Rate mL/min (>60) Glucose Level 149 mg/dL (74-106) H Calcium Level 9.2 mg/dL (8.6-10.2) Microbiology Date/Time Source Procedure Growth Status 04/06/16 19:00 Nasal Nares MRSA Culture - Final NO METHICILLIN RESISTANT STAPH AUREUS... Complete 04/08/16 08:20 Urine,Clean Catch Urine Culture - Preliminary Gram Negative Bacillus 1 Resulted 04/06/16 19:00 Rectum VRE Culture - Final NO VANCOMYCIN RESISTANT ENTEROCOCCUS ... Complete LORRIE SHIN Apr 09, 2016 09:17
[2016-04-09 12:00] VITALS: BP 120/66
--- NOTE | 2016-04-09 12:12 | Pulmonology Progress Note ---
Assessment/Plan Problems: (1) Acute encephalopathy (2) Dizziness (3) Syncope (4) Dementia (5) Diabetes (6) HTN (hypertension) Assessment/Plan orthostatic bp cardio evaluation appreciated echo, doppler of carotid artery done f/u by cardiology, can go home if ok with cardio. Subjective ROS Limited/Unobtainable: No Constitutional: Reports: no symptoms Allergies: Coded Allergies: IODINE (Verified Allergy, Intermediate, 04/06/16) VALSARTAN (Verified Allergy, Unknown, 03/07/16) Objective Last 24 Hour Vital Signs Date Time Temp Pulse Resp B/P Pulse Ox O2 Delivery O2 Flow Rate FiO2 04/09/16 09:00 90 74 80 04/09/16 08:46 92 121/62 04/09/16 08:00 90 04/09/16 08:00 96.9 92 17 121/62 99 Room Air 04/09/16 07:49 94 16 Room Air 21 04/09/16 04:00 98.1 88 20 131/61 98 Room Air 04/09/16 01:46 94 04/09/16 00:00 98.1 83 18 124/65 98 Room Air 04/08/16 21:00 70 76 80 04/08/16 20:09 104 04/08/16 20:00 97.8 86 20 101/53 98 Room Air 04/08/16 19:30 90 16 Room Air 21 04/08/16 18:00 84 118/58 04/08/16 16:35 84 04/08/16 16:00 97.8 86 20 118/58 99 Room Air Intake and Output 04/08/16 04/09/16 19:00 07:00 Intake Total 440 ml 1273.33 ml Balance 440 ml 1273.33 ml Intake Oral 440 ml 380 ml IV Total 893.33 ml # Voids 2 4 # Bowel Movements 1 Objective General Appearance: WD/WN Lines, tubes and drains: peripheral HEENT: normocephalic, atraumatic Neck: non-tender, normal alignment Respiratory/Chest: chest wall non-tender, Cardiovascular/Chest: normal peripheral pulses, normal rate Abdomen: normal bowel sounds, non tender Genitourinary/Rectal: normal genital exam Extremities: normal range of motion, non-tender, normal inspection, no calf tenderness, normal capillary refill Skin Exam: normal pigmentation 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 Complete 04/08/16 08:20 Urine,Clean Catch Urine Culture - Preliminary Gram Negative Bacillus 1 Resulted 04/06/16 19:00 Rectum VRE Culture - Final NO VANCOMYCIN RESISTANT ENTEROCOCCUS ... Complete Laboratory Tests 04/09/16 07:05: Sodium Level 142, Potassium Level 4.2, Chloride Level 105, Carbon Dioxide Level 21, Anion Gap 16H, Blood Urea Nitrogen 14, Creatinine 1.1H, Estimat Glomerular Filtration Rate , Glucose Level 149H, Calcium Level 9.2 Current Medications Medications (Trade) Dose Ordered Sig/Jesenia Route PRN Reason Start Time Stop Time Status Last Admin Dose Admin Acetaminophen (Tylenol) 650 mg Q4H PRN ORAL FEVER 04/06/16 18:00 05/06/16 17:59 Albuterol/ Ipratropium (DuoNeb 0.5-3(2.5)mg/3ml) 3 ml EVERY 4 HOURS PRN HHN Shortness of Breath 04/06/16 18:00 04/11/16 17:59 Amlodipine Besylate (Norvasc) 2.5 mg DAILY ORAL 04/10/16 09:00 05/10/16 08:59 Aspirin (ASA) 162 mg DAILY ORAL 04/07/16 09:00 05/07/16 08:59 04/09/16 08:44 Brimonidine Tartrate (Alphagan) 1 drop BID RIGHT EYE 04/06/16 21:30 05/06/16 21:29 04/09/16 08:43 Dextrose (Dextrose 50%) STAT PRN IV Hypoglycemia 04/06/16 18:00 05/06/16 17:59 Donepezil HCl (Aricept) 10 mg QHS ORAL 04/06/16 21:00 05/06/16 20:59 04/08/16 22:01 Enalaprilat (Vasotec) 2.5 mg EVERY 6 HOURS PRN IV sbp more than 160 04/06/16 18:00 05/06/16 17:59 Heparin Sodium (Porcine) (Heparin 5000 units/ml) 5,000 units EVERY 8 HOURS SUBQ 04/06/16 22:00 05/06/16 21:59 04/09/16 06:40 Insulin Aspart BEFORE MEALS AND HS SUBQ 04/08/16 16:30 05/08/16 16:29 Latanoprost (Xalatan) 1 drop BEDTIME RIGHT EYE 04/06/16 21:00 05/06/16 20:59 04/08/16 22:03 Metformin HCl (Glucophage) 500 mg TIAC ORAL 04/07/16 16:30 05/07/16 16:29 04/09/16 11:22 Nitroglycerin (Ntg) 0.4 mg Q5M PRN SL Prn Chest Pain 04/06/16 18:00 05/06/16 17:59 Ondansetron HCl (Zofran) 4 mg Q6H PRN IVP Nausea & Vomiting 04/06/16 18:00 05/06/16 17:59 Pantoprazole (Protonix) 40 mg DAILY ORAL 04/07/16 09:00 05/07/16 08:59 04/09/16 08:44 Polyethylene Glycol (Miralax) 17 gm DAILYPRN PRN ORAL Constipation 04/06/16 18:00 05/06/16 17:59 Sitagliptin Phosphate (Januvia) 100 mg ACBREAKFAST ORAL 04/07/16 06:30 05/07/16 06:29 04/09/16 06:39 Sodium Chloride (Sodium Chloride 1000ml bag) 1,000 ml @ 100 mls/hr Q10H IV 04/08/16 21:00 05/08/16 20:59 04/09/16 06:01 Temazepam (Restoril) 15 mg HSPRN PRN ORAL Insomnia 04/06/16 18:00 04/13/16 17:59 FILIPPO HUBBARD Apr 09, 2016 12:12
--- NOTE | 2016-04-09 12:12 | General Progress Note ---
Assessment/Plan Status: unchanged Assessment/Plan - Dizziness, ? presyncopal. - HTN - h/o Hypertensive emergency. - h/o Evidence of urinary tract infection. - High A1c - DM - Nephropathy Previous Neuro ruiz and exam: The patient's history, neurological examination, and laboratory data are most compatible with unsteadiness on her feet due to neuropathic process most probably related to diabetes mellitus. 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 Plan: Hold Beta blockers- Resume Glucophage- Stop Mind altering meds which cause side effect- PT OT- adjust Diabetic medications- Per orders ? Dc planning? Subjective ROS Limited/Unobtainable: No Constitutional: Reports: malaise, weakness Allergies: Coded Allergies: IODINE (Verified Allergy, Intermediate, 04/06/16) VALSARTAN (Verified Allergy, Unknown, 03/07/16) Objective Last 24 Hour Vital Signs Date Time Temp Pulse Resp B/P Pulse Ox O2 Delivery O2 Flow Rate FiO2 04/09/16 09:00 90 74 80 04/09/16 08:46 92 121/62 04/09/16 08:00 90 04/09/16 08:00 96.9 92 17 121/62 99 Room Air 04/09/16 07:49 94 16 Room Air 04/09/16 04:00 98.1 88 20 131/61 98 Room Air 04/09/16 01:46 94 04/09/16 00:00 98.1 83 18 124/65 98 Room Air 04/08/16 21:00 70 76 80 04/08/16 20:09 104 04/08/16 20:00 97.8 86 20 101/53 98 Room Air 04/08/16 19:30 90 16 Room Air 21 04/08/16 18:00 84 118/58 04/08/16 16:35 84 04/08/16 16:00 97.8 86 20 118/58 99 Room Air Intake and Output 04/08/16 04/09/16 19:00 07:00 Intake Total 440 ml 1273.33 ml Balance 440 ml 1273.33 ml Intake Oral 440 ml 380 ml IV Total 893.33 ml # Voids 2 4 # Bowel Movements 1 Laboratory Tests 04/09/16 07:05: Sodium Level 142, Potassium Level 4.2, Chloride Level 105, Carbon Dioxide Level 21, Anion Gap 16H, Blood Urea Nitrogen 14, Creatinine 1.1H, Estimat Glomerular Filtration Rate , Glucose Level 149H, Calcium Level 9.2 Height (Feet): 5 Height (Inches): 3.00 Weight (Pounds): 134 General Appearance: no apparent distress Cardiovascular: regular rhythm Respiratory/Chest: decreased breath sounds Abdomen: soft Objective other physical exam not changed DAVIDA SUMMERS Apr 09, 2016 12:12
[2016-04-09 16:00] VITALS: BP 132/67
[2016-04-09 20:00] VITALS: BP_SYST 119; BP_SYST 145; BP_DIAS 59; BP_DIAS 87
[2016-04-09] MEDS: Donepezil 10mg tab ORAL SCH (21:57)
[2016-04-10 00:15] VITALS: BP 120/67
--- NOTE | 2016-04-11 16:30 | Discharge Summary ---
Discharge Summary Hospital Course Date of Admission Apr 06, 2016 at 15:21 Date of Discharge Apr 10, 2016 at 00:34 Admitting Diagnosis HPI Cresencio Wu is a 85 year old female who was admitted on Apr 06, 2016 at 15: 21 for Acute Coronary Syndrome Hospital Course [id number] Discharge Discharge Disposition Patient was discharged to SNF/Subacute Facility(03) Discharge Diagnoses: Daphney Oneill NP Apr 11, 2016 16:30
--- NOTE | 2016-04-11 23:19 | Discharge Summary 2 SIG ---
DATE OF ADMISSION: 04/06/2016 DATE OF DISCHARGE: 04/10/2016 CONSULTANTS: 1. Erich Dawn M.D. 2. Oscar Sanon M.D. BRIEF HOSPITAL COURSE: The patient is an 85-year-old female with history of diabetes, hypertension, and early dementia. The patient came from an assisted living and was taken to [facility] with complaints of dizziness and weakness after taking a shower. The patient was transferred to [facility] for further care. She was admitted to telemetry for cardiac evaluation. Dr. Sanon was consulted. Her EKG showed left ventricular hypertrophy with some nonspecific ST changes. Chest x-ray is unremarkable. Dr. Dawn was consulted. Creatinine was elevated, which could be secondary to diabetic nephropathy. She was given IV hydration and has volume depletion with positive orthostatic check. Her Norvasc dose was also decreased. Troponins were negative. Echocardiogram showed ejection fraction of 60% to 65%. Venous duplex was also negative for DVT. The patient was eventually discharged home. FINAL DIAGNOSES: 1. Syncope secondary to orthostasis. 2. Acute metabolic encephalopathy. 3. Dizziness. 4. Dementia. 5. Diabetes with diabetic nephropathy. 6. Hypertension. 7. 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 Souleymane Crow M.D. I have been assigned to dictate discharge summary on this account and I was not involved in the patient's management. Daphney Oneill N.P. DR: ABY JOB#: [id number] CC:
--- NOTE | 2016-04-12 21:50 | Diagnostic Imaging Report ---
APPROVED REPORT CPT Code: 59008 Present Symptoms Lower Extremity Pain: Bilateral BILATERAL: Imaging reveals a patent deep venous system bilaterally. There is no evidence of thrombus within the femoral, popliteal or tibial segments. The greater saphenous veins are also within normal limits. Doppler indicates normal spontaneous flow within these segments.
== END 2016-04-10 00:34 | disposition home or self-care (01) | DRG 312 ==
LOC: 2E 15:21
DX: I95.1 Orthostatic hypotension (principal); G93.41 Metabolic encephalopathy; E11.21 Type 2 diabetes mellitus with diabetic nephropathy; E11.40 Type 2 diabetes mellitus with diabetic neuropathy, unspecified; F03.90 Unspecified dementia, unspecified severity, without behavioral disturbance, psychotic disturbance, mood disturbance, and anxiety; E11.22 Type 2 diabetes mellitus with diabetic chronic kidney disease; I12.9 Hypertensive chronic kidney disease with stage 1 through stage 4 chronic kidney disease, or unspecified chronic kidney disease; N18.9 Chronic kidney disease, unspecified
CPT/HCPCS: 36415; 80048; 80053; 80061; 81001; 82962; 83735; 83880; 84100; 84443; 84484; 84550; 85025; 85610; 85730; 86140; 87081; 87086; 87181; 93306; 93970; 94664; J1815

== ENCOUNTER 2016-05-15 14:23 | Inpatient (IN) | payer MEDICARE, MEDICAID ==
[~2016-05-15] VITALS: Ht 160 cm; Wt 55.3 kg
[2016-05-15] MEDS ORDERED: Mylanta II UD 30ml ORAL PRN (18:45)
[2016-05-15] MEDS ORDERED: LORazepam Inj 2mg/ml 1ml IV PRN (18:45)
[2016-05-15] MEDS ORDERED: Promethazine/Codeine 5ml UD ORAL PRN (18:45)
[2016-05-15] MEDS ORDERED: Miralax 17gm pkt ORAL PRN (18:45)
[2016-05-15] MEDS ORDERED: Nitroglycerin Subl 0.4mg tab (Bottle Of 25) SL PRN (18:45)
[2016-05-15] MEDS ORDERED: DuoNeb 0.5-3(2.5)mg/3ml neb HHN PRN (18:45)
[2016-05-15] MEDS ORDERED: Morphine Sulfate 2mg/ml Inj IVP PRN (18:45)
[2016-05-15 20:00] VITALS: BP 155/75
[2016-05-15] MEDS: D5 1/2NS 1,000 ML IV SCH (20:08)
[2016-05-15] MEDS: Heparin 5000 units/ml inj SUBQ SCH (21:00)
[2016-05-16] VITALS: BP 128/47
[2016-05-16] MEDS ORDERED: MEGACE400 MG/11 PO (00:26)
[2016-05-16] MEDS ORDERED: NITROFURANTOIN100 M2 ORAL (00:26)
[2016-05-16] MEDS ORDERED: LISINOPRIL5 MG ORAL (00:26)
[2016-05-16] MEDS ORDERED: GLYBURIDE5 MG PO (00:26)
[2016-05-16] MEDS ORDERED: ARICEPT23 MG ORAL (00:26)
[2016-05-16] MEDS ORDERED: FENOFIBRATE145 M1 ORAL (00:26)
[2016-05-16 04:24] VITALS: BP 117/62
[2016-05-16 06:08] LABS: BASOPHILS % (AUTO) 2.3 % (0.0-2.0); EOSINOPHILS % (AUTO) 1.4 % (0.0-3.0); LYMPHOCYTES % (AUTO) 42.3 % (20.0-45.0); MEAN CORPUSCULAR HEMOGLOBIN 29.8 PG (27.0-31.0); MEAN CORPUSCULAR HGB CONC 32.6 G/DL (32.0-36.0); MEAN CORPUSCULAR VOLUME 91 FL (80-99); MEAN PLATELET VOLUME 6.5 FL (6.5-10.1); MONOCYTES % (AUTO) 9.4 % (1.0-10.0); NEUTROPHILS % (AUTO) 44.6 % (45.0-75.0); PLATELET COUNT 528 K/UL (150-450); RED BLOOD COUNT 3.32 M/UL (4.20-5.40); RED CELL DISTRIBUTION WIDTH 13.2 % (11.6-14.8); WHITE BLOOD COUNT 6.3 K/UL (4.8-10.8)
[2016-05-16 06:44] LABS: INR 1.2 (0.9-1.1); PROTHROMBIN TIME 11.8 SEC (9.30-11.50)
[2016-05-16 07:23] LABS: ALANINE AMINOTRANSFERASE 15 U/L (3-33); ALBUMIN/GLOBULIN RATIO 1.4 (1.0-2.7); ANION GAP 17 (5-15); ASPARTATE AMINO TRANSFERASE 22 U/L (5-40); CALCIUM 9.4 mg/dL (8.6-10.2); CARBON DIOXIDE 22 mEQ/L (20-30); CHLORIDE 104 mEQ/L (98-107); CHOLESTEROL 118 mg/dL (< 200); CHOLESTEROL/HDL RATIO 3.1 (3.3-4.4); CREATININE 1.3 mg/dL (0.5-0.9); HEMOLYSIS 4; LDL CHOLESTEROL (CALC.) 64 mg/dL (60-99); POTASSIUM 3.8 mEQ/L (3.4-4.9); SODIUM 143 mEQ/L (135-145); TOTAL PROTEIN 6.1 g/dL (6.6-8.7)
[2016-05-16 08:00] VITALS: BP 117/62
[2016-05-16] MEDS: Heparin 5000 units/ml inj SUBQ SCH ×3 (08:57→22:01)
[2016-05-16 11:32] VITALS: BP 138/75
--- NOTE | 2016-05-16 15:50 | History and Physical ---
History of Present Illness Present Illness HPI 85 year old male with hx of mild dementia, HTN, DM, lives in an assisted living , was taken by paramedics because of ALOC. She was sitting in a chair and the next thing she knew she was on the floor with her head on the bed. She was taken to [facility] initially, the cardiac work up there was negative. She is taken to [facility] for further care. Allergies: Coded Allergies: IODINE (Verified Allergy, Intermediate, 04/06/16) VALSARTAN (Verified Allergy, Unknown, 03/07/16) Medication History Scheduled Amlodipine Besylate (Norvasc), 2.5 MG ORAL BID Aspirin Ec* (Aspirin Ec*), 81 MG ORAL DAILY, (Reported) Brimonidine Tartrate* (Alphagan*), 1 DROP RIGHT EYE BID, (Reported) Donepezil Hcl (Aricept), 10 MG ORAL QPM, (Reported) Fenofibrate Nanocrystallized (Fenofibrate), 160 MG ORAL BEDTIME, (Reported) Glyburide (Glyburide), 5 MG PO BID, (Reported) Lisinopril (Lisinopril*), 2.5 MG ORAL DAILY, (Reported) Megestrol Acetate (Megestrol Acetate), 625 MG PO DAILY, (Reported) Megestrol Acetate (Megace), 40 MG PO DAILY, (Reported) Memantine Hcl (Namenda Xr), 28 MG PO DAILY, (Reported) Metformin Hcl* (Glucophage*), 500 MG ORAL BIDLS Multivitamin W-Minerals/Lutein (Cerovite Senior Tablet), 1 EACH PO DAILY, ( Reported) Nebivolol Hcl* (Bystolic*), 5 MG ORAL DAILY, (Reported) Nitrofurantoin Monohyd/M-Cryst* (Macrobid 100 Mg*), 100 MG ORAL BID, (Reported) Pantoprazole* (Protonix*), 40 MG ORAL DAILY Sitagliptin (Januvia), 100 MG ORAL ACBREAKFAST Travoprost (Travatan Z), 5 ML RIGHT EYE QHS, (Reported) Trimethoprim/Sulfamethoxazole (Bactrim Ds Tablet), 1 EA ORAL DAILY Scheduled PRN Acetaminophen* (Acetaminophen 325MG Tablet*), 650 MG ORAL Q4H PRN Discontinued Medications Sitagliptin Phos/Metformin Hcl (Janumet 50-500 Mg Tablet), 1 TAB ORAL TWICE A DAY, (Reported) Discontinued Reason: Pt stopped taking med Patient History Healthcare decision maker pt alert and oriented Resuscitation status Full Code Advanced Directive on File Past Medical/Surgical History Past Medical/Surgical History: (1) HTN (hypertension) (2) Diabetes (3) Dementia Review of Systems All Other Systems: negative except mentioned in HPI Physical Exam Physical Exam Narrative General Appearance: WD/WN Lines, tubes and drains: peripheral, central line HEENT: normocephalic, atraumatic Neck: non-tender, normal alignment Respiratory/Chest: chest wall non-tender, lungs clear Cardiovascular/Chest: normal peripheral pulses, normal rate Abdomen: normal bowel sounds Genitourinary/Rectal: normal genital exam, normal prostate exam Extremities: normal range of motion Skin Exam: normal pigmentation Last 24 Hour Vital Signs Date Time Temp Pulse Resp B/P Pulse Ox O2 Delivery O2 Flow Rate FiO2 05/16/16 11:32 98.3 84 18 138/75 100 Room Air 05/16/16 08:56 68 117/62 05/16/16 08:00 98.1 68 18 117/62 100 Room Air 05/16/16 07:44 70 05/16/16 04:24 98.5 72 19 117/62 100 Room Air 05/16/16 04:00 75 05/16/16 00:00 68 05/16/16 00:00 98.8 61 18 128/47 95 Room Air 05/15/16 21:43 81 110/47 05/15/16 20:00 84 05/15/16 20:00 97.7 81 20 155/75 98 Room Air 05/15/16 19:46 168/100 Intake and Output 05/15/16 05/16/16 19:00 07:00 Intake Total 545 ml Balance 545 ml IV Total 545 ml # Voids 2 Laboratory Tests Test 05/16/16 04:50 White Blood Count 6.3 K/UL (4.8-10.8) Red Blood Count 3.32 M/UL (4.20-5.40) L Hemoglobin 9.9 G/DL (12.0-16.0) L Hematocrit 30.3 % (37.0-47.0) L Mean Corpuscular Volume 91 FL (80-99) Mean Corpuscular Hemoglobin 29.8 PG (27.0-31.0) Mean Corpuscular Hemoglobin Concent 32.6 G/DL (32.0-36.0) Red Cell Distribution Width 13.2 % (11.6-14.8) Platelet Count 528 K/UL (150-450) H Mean Platelet Volume 6.5 FL (6.5-10.1) Neutrophils (%) (Auto) 44.6 % (45.0-75.0) L Lymphocytes (%) (Auto) 42.3 % (20.0-45.0) Monocytes (%) (Auto) 9.4 % (1.0-10.0) Eosinophils (%) (Auto) 1.4 % (0.0-3.0) Basophils (%) (Auto) 2.3 % (0.0-2.0) H Prothrombin Time 11.8 SEC (9.30-11.50) H Prothromb Time International Ratio 1.2 (0.9-1.1) H Activated Partial Thromboplast Time 25 SEC (23-33) Sodium Level 143 mEQ/L (135-145) Potassium Level 3.8 mEQ/L (3.4-4.9) Chloride Level 104 mEQ/L (98-107) Carbon Dioxide Level 22 mEQ/L (20-30) Anion Gap 17 (5-15) H Blood Urea Nitrogen 9 mg/dL (7-23) Creatinine 1.3 mg/dL (0.5-0.9) H Estimat Glomerular Filtration Rate mL/min (>60) Glucose Level 129 mg/dL (74-106) H Calcium Level 9.4 mg/dL (8.6-10.2) Total Bilirubin 0.3 mg/dL (0.0-1.2) Aspartate Amino Transf (AST/SGOT) 22 U/L (5-40) Alanine Aminotransferase (ALT/SGPT) 15 U/L (3-33) Alkaline Phosphatase 25 U/L (35-104) L Total Protein 6.1 g/dL (6.6-8.7) L Albumin 3.6 g/dL (3.5-5.2) Globulin 2.5 g/dL Albumin/Globulin Ratio 1.4 (1.0-2.7) Triglycerides Level 80 mg/dL (< 150) Cholesterol Level 118 mg/dL (< 200) LDL Cholesterol 64 mg/dL (60-99) HDL Cholesterol 38 mg/dL (> 60) Cholesterol/HDL Ratio 3.1 (3.3-4.4) L Thyroid Stimulating Hormone (TSH) 1.380 uIU/mL (0.300-4.500) Height (Feet): 5 Height (Inches): 3.00 Weight (Pounds): 122 Medications Current Medications Medications (Trade) Dose Ordered Sig/Jesenia Route PRN Reason Start Time Stop Time Status Last Admin Dose Admin Acetaminophen (Tylenol) 650 mg Q4H PRN ORAL fever 05/15/16 18:45 06/14/16 18:44 Al Hydroxide/Mg Hydroxide (Mylanta II) 30 ml Q6H PRN ORAL dyspepsia 05/15/16 18:45 06/14/16 18:44 Albuterol/ Ipratropium (DuoNeb 0.5-3(2.5)mg/3ml) 3 ml EVERY 4 HOURS PRN HHN Shortness of Breath 05/15/16 18:45 05/20/16 18:44 Amlodipine Besylate (Norvasc) 2.5 mg Q12HR ORAL 05/15/16 21:00 06/14/16 20:59 05/16/16 08:56 Clonidine HCl (Catapres) 0.1 mg Q4H PRN ORAL For High Blood Pressure 05/15/16 18:45 06/14/16 18:44 05/15/16 19:46 Dextrose (Dextrose 50%) STAT PRN IV Hypoglycemia 05/15/16 18:45 06/14/16 18:44 Dextrose/Sodium Chloride (D5 0.45% NS) 1,000 ml @ 50 mls/hr Q20H IV 05/15/16 20:00 06/14/16 19:59 05/15/16 20:08 Heparin Sodium (Porcine) (Heparin 5000 units/ml) 5,000 units EVERY 12 HOURS SUBQ 05/15/16 21:00 06/14/16 20:59 Lorazepam (Ativan 2mg/ml 1ml) 0.5 mg Q4H PRN IV For Anxiety 05/15/16 18:45 05/22/16 18:44 Morphine Sulfate (Morphine Sulfate) 1 mg EVERY 4 HOURS PRN IVP For Pain 7-10 05/15/16 18:45 05/22/16 18:44 05/16/16 06:24 Nitroglycerin (Ntg) 0.4 mg Q5M X 3 DOSES PRN SL Prn Chest Pain 05/15/16 18:45 06/14/16 18:44 Ondansetron HCl (Zofran) 4 mg Q6H PRN IVP Nausea & Vomiting 05/15/16 18:45 06/14/16 18:44 Pantoprazole (Protonix) 40 mg DAILY ORAL 05/16/16 09:00 06/15/16 08:59 05/16/16 08:56 Polyethylene Glycol (Miralax) 17 gm HSPRN PRN ORAL Constipation 05/15/16 18:45 06/14/16 18:44 Promethazine HCl/ Codeine (Phenergan with Codeine) 5 ml Q4H PRN ORAL For Cough 05/15/16 18:45 06/14/16 18:44 Sitagliptin Phosphate 100 mg 100 mg ACBREAKFAST ORAL 05/16/16 06:30 06/15/16 06:29 05/16/16 06:22 Temazepam (Restoril) 15 mg HSPRN PRN ORAL Insomnia 05/15/16 18:45 05/22/16 18:44 Assessment/Plan Problem List: (1) Acute encephalopathy ICD Codes: G93.40 - Encephalopathy, unspecified SNOMED: 4838066 (2) Syncope ICD Codes: R55 - Syncope and collapse SNOMED: 645565228 (3) HTN (hypertension) ICD Codes: I10 - Essential (primary) hypertension SNOMED: 05591460 (4) Diabetes ICD Codes: E11.9 - Type 2 diabetes mellitus without complications SNOMED: 49826969 (5) Dementia ICD Codes: F03.90 - Unspecified dementia without behavioral disturbance SNOMED: 65271321 Assessment/Plan telemetry admission EKG, echo cardiac evaluation orthostatic BP sliding scale, insulin coverage pt/ot FILIPPO HUBBARD May 16, 2016 15:50
[2016-05-16] MEDS: D5 1/2NS 1,000 ML IV SCH (15:57)
[2016-05-16 16:00] VITALS: BP 121/55
--- NOTE | 2016-05-16 17:01 | Cardiology Progress Note ---
Assessment/Plan Assessment/Plan recurrent syncope htn dm dementia orthostatic may needs loop recorder implanted non strict bp control hold parameter for med encourage po intake tele serial enzyme ekg [id number] Objective Last 24 Hour Vital Signs Date Time Temp Pulse Resp B/P Pulse Ox O2 Delivery O2 Flow Rate FiO2 05/16/16 16:00 98.4 79 20 121/55 98 Room Air 05/16/16 11:32 98.3 84 18 138/75 100 Room Air 05/16/16 08:56 68 117/62 05/16/16 08:00 98.1 68 18 117/62 100 Room Air 05/16/16 07:44 70 05/16/16 04:24 98.5 72 19 117/62 100 Room Air 05/16/16 04:00 75 05/16/16 00:00 68 05/16/16 00:00 98.8 61 18 128/47 95 Room Air 05/15/16 21:43 81 110/47 05/15/16 20:00 84 05/15/16 20:00 97.7 81 20 155/75 98 Room Air 05/15/16 19:46 168/100 Intake and Output 05/15/16 05/16/16 19:00 07:00 Intake Total 545 ml Balance 545 ml IV Total 545 ml # Voids 2 Laboratory Tests Test 05/16/16 04:50 White Blood Count 6.3 K/UL (4.8-10.8) Red Blood Count 3.32 M/UL (4.20-5.40) L Hemoglobin 9.9 G/DL (12.0-16.0) L Hematocrit 30.3 % (37.0-47.0) L Mean Corpuscular Volume 91 FL (80-99) Mean Corpuscular Hemoglobin 29.8 PG (27.0-31.0) Mean Corpuscular Hemoglobin Concent 32.6 G/DL (32.0-36.0) Red Cell Distribution Width 13.2 % (11.6-14.8) Platelet Count 528 K/UL (150-450) H Mean Platelet Volume 6.5 FL (6.5-10.1) Neutrophils (%) (Auto) 44.6 % (45.0-75.0) L Lymphocytes (%) (Auto) 42.3 % (20.0-45.0) Monocytes (%) (Auto) 9.4 % (1.0-10.0) Eosinophils (%) (Auto) 1.4 % (0.0-3.0) Basophils (%) (Auto) 2.3 % (0.0-2.0) H Prothrombin Time 11.8 SEC (9.30-11.50) H Prothromb Time International Ratio 1.2 (0.9-1.1) H Activated Partial Thromboplast Time 25 SEC (23-33) Sodium Level 143 mEQ/L (135-145) Potassium Level 3.8 mEQ/L (3.4-4.9) Chloride Level 104 mEQ/L (98-107) Carbon Dioxide Level 22 mEQ/L (20-30) Anion Gap 17 (5-15) H Blood Urea Nitrogen 9 mg/dL (7-23) Creatinine 1.3 mg/dL (0.5-0.9) H Estimat Glomerular Filtration Rate mL/min (>60) Glucose Level 129 mg/dL (74-106) H Calcium Level 9.4 mg/dL (8.6-10.2) Total Bilirubin 0.3 mg/dL (0.0-1.2) Aspartate Amino Transf (AST/SGOT) 22 U/L (5-40) Alanine Aminotransferase (ALT/SGPT) 15 U/L (3-33) Alkaline Phosphatase 25 U/L (35-104) L Total Protein 6.1 g/dL (6.6-8.7) L Albumin 3.6 g/dL (3.5-5.2) Globulin 2.5 g/dL Albumin/Globulin Ratio 1.4 (1.0-2.7) Triglycerides Level 80 mg/dL (< 150) Cholesterol Level 118 mg/dL (< 200) LDL Cholesterol 64 mg/dL (60-99) HDL Cholesterol 38 mg/dL (> 60) Cholesterol/HDL Ratio 3.1 (3.3-4.4) L Thyroid Stimulating Hormone (TSH) 1.380 uIU/mL (0.300-4.500) LORRIE SHIN May 16, 2016 17:01
[2016-05-16 20:00] VITALS: BP 122/59
--- NOTE | 2016-05-16 21:58 | Consultation ---
DATE OF CONSULTATION: 05/16/2016 CARDIAC CONSULTATION REFERRING PHYSICIAN: Souleymane Crow M.D. REASON FOR REFERRAL: Syncope. HISTORY OF PRESENT ILLNESS: This is an elderly female, who is a resident of [facility] facility. The patient has been here on prior occasions. She tells me she was getting ready to go downstairs and suddenly found herself on the floor. She has had similar situations on prior occasions. She denies having any chest pain or pressure. No PND. No orthopnea. She does have dizziness or lightheadedness on standing position. She apparently has had some diarrhea and she has had poor p.o. intake according to herself for the past few days. PAST MEDICAL HISTORY: Positive for history of hypertension and diabetes and history of syncope on prior occasions and dementia as well. MEDICATIONS: Prior to admission, according to the facility notes that includes Tradjenta. She takes Tylenol. She takes fenofibric acid 160 mg at nighttime, Alphagan eyedrops, Aricept, and aspirin 81 mg. She takes metformin 500 mg twice daily, glyburide 5 mg twice daily, ciprofloxacin, which she had finished, Lomotil, glipizide 5 mg on a daily basis, Megace 400 mg daily, and Macrobid 100 mg twice daily. She has been on lisinopril 2.5 mg to hold for blood pressure less than 110, and Namenda XR. She is on Paxil and Travatan eyedrops as well. ALLERGIES: She is reportedly allergic to Diovan and iodine according to the notes. REVIEW OF SYSTEMS: Gastrointestinal: She has had some diarrhea. She has poor p.o. intake. No nausea or vomiting. No bloody or black stool. Genitourinary: Negative. Pulmonary: Negative. Constitutional: Negative. Neurological: Negative. PHYSICAL EXAMINATION: GENERAL: Shows to be an elderly female, in no apparent distress. HEENT: Unremarkable. NECK: Supple. No jugular venous distention. No abdominojugular reflux noted. LUNGS: Appear to be clear to auscultation and percussion. CARDIAC EXAMINATION: S1 is normal. S2 is normal. Regular rate and rhythm. Systolic ejection murmur is noted. No RV, heaves, thrills, or gallops noted. ABDOMEN: Soft and nontender. Positive bowel sounds. EXTREMITIES: There is no clubbing, cyanosis, nor is there any edema. NEUROLOGICAL: She is awake, alert, responsive, in no apparent respiratory distress. LABORATORY DATA: Data from [place] reviewed that the patient initially had a blood pressure of 209/88 at [facility]. Her laboratory data showed white count of 7.3, hemoglobin 11.2, and platelet count of 568,000. Sodium 141, potassium 4.0 chloride 105, bicarbonate 23, BUN 9, creatinine 1.34, and glucose of 144. Troponin was normal less than 0.02. Calcium is 10.3. Albumin of 4.2. Chest x-ray, no obvious abnormality. A CT scan showed brain atrophy, white matter ischemic changes, no acute infarct or mass effect. An EKG shows sinus rhythm, leftward axis, no ST-T wave abnormalities and significant degree and really has not changed from prior evaluation back in 03/2016. ASSESSMENT: 1. Recurrent syncope with history of the same. 2. Diabetes mellitus. 3. Hypertension. PLAN: Dr. Crow, this patient was seen in cardiac consultation. The patient had significantly elevated blood pressure readings at [facility] initially upon presentation. Unfortunately, I am unable to find if she had any orthostatic vitals performed at [place] and if her blood pressure became any lower, however, it was documented 2 blood pressure readings one at 188/73 and the other one at 209/88 indicate volume depletion and unlikely etiology. Nevertheless, her symptoms of syncope that are recurrent are concerned she should be monitored on telemetry. EKGs will be ordered. The patient has had an echocardiogram performed. Final report in the chart indicates technically difficult study with normal left ventricular systolic function and no significant valvular dysfunction. There is mild tricuspid regurgitation and no aortic stenosis being noted There are no electrocardiographic abnormality. I will order a set of orthostatic vital signs. Her blood pressure is not as elevated here as it has been at [facility] and I would be hesitant to control her blood pressure tightly in light of fact that she has about syncope, which may be related to vasodepressor causes such as volume depletion on medications. Oscar Sanon M.D. DR: EH JOB#: [id number] CC:
[2016-05-17] VITALS: BP 142/68
[2016-05-17] MEDS: D5 1/2NS 1,000 ML IV SCH ×2 (01:20→21:30)
[2016-05-17 04:10] VITALS: BP 166/76
[2016-05-17 08:23] VITALS: BP 155/65
[2016-05-17] MEDS: Heparin 5000 units/ml inj SUBQ SCH ×2 (09:00→21:00)
[2016-05-17 11:28] VITALS: BP 116/50
[2016-05-17 16:00] VITALS: BP 143/63
--- NOTE | 2016-05-17 16:08 | Pulmonology Progress Note ---
Assessment/Plan Problems: (1) Acute encephalopathy (2) Syncope (3) Failure to thrive (4) Dementia (5) Diabetes (6) HTN (hypertension) Assessment/Plan asymtomatic loose bp control cardiology note appreciated 24 hour calorie count. dc home when OK with cardio Subjective ROS Limited/Unobtainable: No Interval Events: comfortable Allergies: Coded Allergies: IODINE (Verified Allergy, Intermediate, 04/06/16) VALSARTAN (Verified Allergy, Unknown, 03/07/16) Objective Last 24 Hour Vital Signs Date Time Temp Pulse Resp B/P Pulse Ox O2 Delivery O2 Flow Rate FiO2 05/17/16 13:49 90 05/17/16 13:39 84 05/17/16 13:34 73 05/17/16 11:28 97.5 78 18 116/50 97 Room Air 05/17/16 09:15 78 155/65 05/17/16 08:25 78 15 Room Air 05/17/16 08:23 98.1 76 20 155/65 98 Room Air 05/17/16 08:12 81 05/17/16 04:10 98.4 74 20 166/76 98 Room Air 05/17/16 04:00 75 05/17/16 00:00 97.0 68 20 142/68 100 Room Air 05/16/16 20:00 78 05/16/16 20:00 97.9 80 21 122/59 99 Room Air 05/16/16 19:00 81 14 Room Air Intake and Output 05/16/16 05/17/16 19:00 07:00 Intake Total 920 ml 300 ml Balance 920 ml 300 ml Intake Oral 320 ml IV Total 600 ml 300 ml # Voids 3 3 # Bowel Movements 1 General Appearance: cachetic HEENT: normocephalic, atraumatic Respiratory/Chest: chest wall non-tender, lungs clear Cardiovascular: normal peripheral pulses, normal rate Abdomen: soft, non tender Microbiology Date/Time Source Procedure Growth Status 05/15/16 21:30 Nasal Nares MRSA Culture - Final NO METHICILLIN RESISTANT STAPH AUREUS... Complete 05/15/16 21:30 Rectum VRE Culture - Final NO VANCOMYCIN RESISTANT ENTEROCOCCUS ... Complete Current Medications Medications (Trade) Dose Ordered Sig/Jesenia Route PRN Reason Start Time Stop Time Status Last Admin Dose Admin Acetaminophen (Tylenol) 650 mg Q4H PRN ORAL fever 05/15/16 18:45 06/14/16 18:44 Al Hydroxide/Mg Hydroxide (Mylanta II) 30 ml Q6H PRN ORAL dyspepsia 05/15/16 18:45 06/14/16 18:44 Albuterol/ Ipratropium (DuoNeb 0.5-3(2.5)mg/3ml) 3 ml EVERY 4 HOURS PRN HHN Shortness of Breath 05/15/16 18:45 05/20/16 18:44 Amlodipine Besylate (Norvasc) 2.5 mg DAILY ORAL 05/17/16 09:00 06/16/16 08:59 05/17/16 09:15 Clonidine HCl (Catapres) 0.1 mg Q4H PRN ORAL For High Blood Pressure 05/15/16 18:45 06/14/16 18:44 05/15/16 19:46 Dextrose (Dextrose 50%) STAT PRN IV Hypoglycemia 05/15/16 18:45 06/14/16 18:44 Dextrose/Sodium Chloride (D5 0.45% NS) 1,000 ml @ 50 mls/hr Q20H IV 05/15/16 20:00 06/14/16 19:59 05/17/16 01:20 Heparin Sodium (Porcine) (Heparin 5000 units/ml) 5,000 units EVERY 12 HOURS SUBQ 05/15/16 21:00 06/14/16 20:59 05/16/16 22:01 Lorazepam (Ativan 2mg/ml 1ml) 0.5 mg Q4H PRN IV For Anxiety 05/15/16 18:45 05/22/16 18:44 Morphine Sulfate (Morphine Sulfate) 1 mg EVERY 4 HOURS PRN IVP For Pain 7-10 05/15/16 18:45 05/22/16 18:44 05/16/16 06:24 Nitroglycerin (Ntg) 0.4 mg Q5M X 3 DOSES PRN SL Prn Chest Pain 05/15/16 18:45 06/14/16 18:44 Ondansetron HCl (Zofran) 4 mg Q6H PRN IVP Nausea & Vomiting 05/15/16 18:45 06/14/16 18:44 Pantoprazole (Protonix) 40 mg DAILY ORAL 05/16/16 09:00 06/15/16 08:59 05/17/16 09:15 Polyethylene Glycol (Miralax) 17 gm HSPRN PRN ORAL Constipation 05/15/16 18:45 06/14/16 18:44 Promethazine HCl/ Codeine (Phenergan with Codeine) 5 ml Q4H PRN ORAL For Cough 05/15/16 18:45 06/14/16 18:44 Sitagliptin Phosphate 100 mg 100 mg ACBREAKFAST ORAL 05/16/16 06:30 06/15/16 06:29 05/17/16 06:45 Temazepam (Restoril) 15 mg HSPRN PRN ORAL Insomnia 05/15/16 18:45 05/22/16 18:44 FILIPPO HUBBARD May 17, 2016 16:08
[2016-05-17 19:00] VITALS: BP 144/65
--- NOTE | 2016-05-17 20:07 | Cardiology Progress Note ---
Assessment/Plan Assessment/Plan recurrent syncope htn dm dementia orthostatic vital neg post treatment may needs loop recorder implanted however i suspect issuw with hypotension rather than heart rate non strict bp control hold parameter for med encourage po intake tele reviewed neg serial enzyme ekg not doen will re order Subjective Cardiovascular: Denies: chest pain, lightheadedness, palpitations Respiratory: Denies: SOB with excertion, shortness of breath Gastrointestinal/Abdominal: Denies: abdominal pain Genitourinary: Denies: burning Objective Last 24 Hour Vital Signs Date Time Temp Pulse Resp B/P Pulse Ox O2 Delivery O2 Flow Rate FiO2 05/17/16 19:26 73 16 Room Air 05/17/16 16:00 78 73 81 05/17/16 16:00 73 05/17/16 16:00 98.4 78 18 143/63 99 Room Air 05/17/16 13:49 90 05/17/16 13:39 84 05/17/16 13:34 73 05/17/16 11:28 97.5 78 18 116/50 97 Room Air 05/17/16 09:15 78 155/65 05/17/16 08:25 78 15 Room Air 05/17/16 08:23 98.1 76 20 155/65 98 Room Air 05/17/16 08:12 81 05/17/16 04:10 98.4 74 20 166/76 98 Room Air 05/17/16 04:00 75 05/17/16 00:00 97.0 68 20 142/68 100 Room Air General Appearance: no apparent distress, alert Neck: supple Cardiovascular: normal rate, regular rhythm Respiratory/Chest: lungs clear, normal breath sounds Abdomen: normal bowel sounds, non tender, soft Extremities: no swelling Intake and Output 05/16/16 05/17/16 19:00 07:00 Intake Total 920 ml 300 ml Balance 920 ml 300 ml Intake Oral 320 ml IV Total 600 ml 300 ml # Voids 3 3 # Bowel Movements 1 Microbiology Date/Time Source Procedure Growth Status 05/15/16 21:30 Nasal Nares MRSA Culture - Final NO METHICILLIN RESISTANT STAPH AUREUS... Complete 05/15/16 21:30 Rectum VRE Culture - Final NO VANCOMYCIN RESISTANT ENTEROCOCCUS ... Complete LORRIE SHIN May 17, 2016 20:07
[2016-05-18 00:05] VITALS: BP 122/68
[2016-05-18 04:02] VITALS: BP 148/72
[2016-05-18 04:23] VITALS: BP 124/64
[2016-05-18 08:00] VITALS: BP 142/72
[2016-05-18] MEDS: Heparin 5000 units/ml inj SUBQ SCH (09:00)
--- NOTE | 2016-05-18 11:32 | Pulmonology Progress Note ---
Assessment/Plan Problems: (1) Acute encephalopathy (2) Syncope (3) Failure to thrive (4) Dementia (5) Diabetes (6) HTN (hypertension) (7) Polypharmacy Assessment/Plan asymtomatic loose bp control cardiology note appreciated 24 hour calorie count. since pt is refusing medical care, I will dc to alf will cut down the number of meds she is taking. Subjective ROS Limited/Unobtainable: No Interval Events: comfortable, refusing blood work and everything else Allergies: Coded Allergies: IODINE (Verified Allergy, Intermediate, 04/06/16) VALSARTAN (Verified Allergy, Unknown, 03/07/16) Objective Last 24 Hour Vital Signs Date Time Temp Pulse Resp B/P Pulse Ox O2 Delivery O2 Flow Rate FiO2 05/18/16 09:43 76 142/72 05/18/16 08:32 77 05/18/16 08:00 99.3 76 17 142/72 98 Room Air 05/18/16 07:45 82 16 Room Air 05/18/16 04:23 98.1 74 20 124/64 100 Room Air 05/18/16 03:50 68 05/18/16 00:05 98.2 84 20 122/68 98 Room Air 05/17/16 23:45 69 05/17/16 20:00 80 05/17/16 19:26 73 16 Room Air 05/17/16 19:00 96.9 79 17 144/65 99 Room Air 05/17/16 16:00 78 73 81 05/17/16 16:00 73 05/17/16 16:00 98.4 78 18 143/63 99 Room Air 05/17/16 13:49 90 05/17/16 13:39 84 05/17/16 13:34 73 Intake and Output 05/17/16 05/18/16 19:00 07:00 Intake Total 1200 ml 630 ml Balance 1200 ml 630 ml Intake Oral 600 ml 480 ml IV Total 600 ml 150 ml # Voids 7 4 General Appearance: cachetic HEENT: normocephalic, atraumatic Respiratory/Chest: chest wall non-tender, lungs clear Cardiovascular: normal peripheral pulses, normal rate Abdomen: normal bowel sounds, no organomegaly Microbiology Date/Time Source Procedure Growth Status 05/15/16 21:30 Nasal Nares MRSA Culture - Final NO METHICILLIN RESISTANT STAPH AUREUS... Complete 05/15/16 21:30 Rectum VRE Culture - Final NO VANCOMYCIN RESISTANT ENTEROCOCCUS ... Complete Current Medications Medications (Trade) Dose Ordered Sig/Jesenia Route PRN Reason Start Time Stop Time Status Last Admin Dose Admin Acetaminophen (Tylenol) 650 mg Q4H PRN ORAL fever 05/15/16 18:45 06/14/16 18:44 Al Hydroxide/Mg Hydroxide (Mylanta II) 30 ml Q6H PRN ORAL dyspepsia 05/15/16 18:45 06/14/16 18:44 Albuterol/ Ipratropium (DuoNeb 0.5-3(2.5)mg/3ml) 3 ml EVERY 4 HOURS PRN HHN Shortness of Breath 05/15/16 18:45 05/20/16 18:44 Amlodipine Besylate 2.5 mg 2.5 mg DAILY ORAL 05/17/16 09:00 06/16/16 08:59 05/18/16 09:43 Clonidine HCl (Catapres) 0.1 mg Q4H PRN ORAL For High Blood Pressure 05/15/16 18:45 06/14/16 18:44 05/15/16 19:46 Dextrose (Dextrose 50%) STAT PRN IV Hypoglycemia 05/15/16 18:45 06/14/16 18:44 Dextrose/Sodium Chloride (D5 0.45% NS) 1,000 ml @ 50 mls/hr Q20H IV 05/17/16 21:30 06/16/16 21:29 Heparin Sodium (Porcine) (Heparin 5000 units/ml) 5,000 units EVERY 12 HOURS SUBQ 05/15/16 21:00 06/14/16 20:59 05/16/16 22:01 Lorazepam (Ativan 2mg/ml 1ml) 0.5 mg Q4H PRN IV For Anxiety 05/15/16 18:45 05/22/16 18:44 Morphine Sulfate (Morphine Sulfate) 1 mg EVERY 4 HOURS PRN IVP For Pain 7-10 05/15/16 18:45 05/22/16 18:44 05/16/16 06:24 Nitroglycerin (Ntg) 0.4 mg Q5M X 3 DOSES PRN SL Prn Chest Pain 05/15/16 18:45 06/14/16 18:44 Ondansetron HCl (Zofran) 4 mg Q6H PRN IVP Nausea & Vomiting 05/15/16 18:45 06/14/16 18:44 Pantoprazole (Protonix) 40 mg DAILY ORAL 05/16/16 09:00 06/15/16 08:59 05/18/16 09:43 Polyethylene Glycol (Miralax) 17 gm HSPRN PRN ORAL Constipation 05/15/16 18:45 06/14/16 18:44 Promethazine HCl/ Codeine (Phenergan with Codeine) 5 ml Q4H PRN ORAL For Cough 05/15/16 18:45 06/14/16 18:44 Sitagliptin Phosphate (Januvia) 100 mg ACBREAKFAST ORAL 05/16/16 06:30 06/15/16 06:29 05/17/16 06:45 Temazepam (Restoril) 15 mg HSPRN PRN ORAL Insomnia 05/15/16 18:45 05/22/16 18:44 FILIPPO HUBBARD May 18, 2016 11:32
[2016-05-18 12:00] VITALS: BP 134/61
--- NOTE | 2016-05-18 14:36 | Cardiology Progress Note ---
Assessment/Plan Status: stable, progressing Status Narrative Episode of syncope - uncertain etiology. Telemetry with normal sinus rhythm, no tachy- or bradycardic events Suspect ortho hypotension or primary neuro event Assessment/Plan Follow ortho VS Agree w/ loose bp control. Subjective ROS Limited/Unobtainable: No Subjective Cardiology for Dr. Sanon Pt alert/ confused. No c/o chest pain or dyspnea. No dizziness, Objective Last 24 Hour Vital Signs Date Time Temp Pulse Resp B/P Pulse Ox O2 Delivery O2 Flow Rate FiO2 05/18/16 12:00 97.0 90 17 134/61 99 Room Air 05/18/16 09:43 76 142/72 05/18/16 08:32 77 05/18/16 08:00 99.3 76 17 142/72 98 Room Air 05/18/16 07:45 82 16 Room Air 05/18/16 04:23 98.1 74 20 124/64 100 Room Air 05/18/16 03:50 68 05/18/16 00:05 98.2 84 20 122/68 98 Room Air 05/17/16 23:45 69 05/17/16 20:00 80 05/17/16 19:26 73 16 Room Air 05/17/16 19:00 96.9 79 17 144/65 99 Room Air 05/17/16 16:00 78 73 81 05/17/16 16:00 73 05/17/16 16:00 98.4 78 18 143/63 99 Room Air General Appearance: WD/WN, no apparent distress, alert EENT: PERRL/EOMI Neck: supple, no JVD Rhythm: NSR Cardiovascular: normal rate, regular rhythm, no gallop/murmur Respiratory/Chest: lungs clear Abdomen: non tender, soft, no mass Extremities: no swelling Intake and Output 05/17/16 05/18/16 19:00 07:00 Intake Total 1200 ml 630 ml Balance 1200 ml 630 ml Intake Oral 600 ml 480 ml IV Total 600 ml 150 ml # Voids 7 4 Microbiology Date/Time Source Procedure Growth Status 05/15/16 21:30 Nasal Nares MRSA Culture - Final NO METHICILLIN RESISTANT STAPH AUREUS... Complete 05/15/16 21:30 Rectum VRE Culture - Final NO VANCOMYCIN RESISTANT ENTEROCOCCUS ... Complete BILL JOHNSTON May 18, 2016 14:36
[2016-05-18 16:00] VITALS: BP 132/57
[2016-05-18] MEDS: D5 1/2NS 1,000 ML IV SCH (17:30)
--- NOTE | 2016-05-20 08:12 | Discharge Summary ---
Discharge Summary Hospital Course Date of Admission May 15, 2016 at 17:13 Date of Discharge May 18, 2016 at 18:45 Admitting Diagnosis HPI Cresencio Wu is a 85 year old female who was admitted on May 15, 2016 at 17: 13 for Syncope Hospital Course dc summary #[id number] Discharge Medications Continued Medications: Amlodipine Besylate (Norvasc) 2.5 Mg Tablet 2.5 MG ORAL BID for 30 Days, TAB Aspirin Ec* (Aspirin Ec*) 81 Mg Tablet.dr 81 MG ORAL DAILY, TAB Brimonidine Tartrate* (Alphagan*) 5 Ml Drops 1 DROP RIGHT EYE BID, ML Donepezil Hcl (Aricept) 23 Mg Tablet 10 MG ORAL QPM, TAB Swallow whole with water; do NOT crush or chew Fenofibrate Nanocrystallized (Fenofibrate) 145 Mg Tablet 160 MG ORAL BEDTIME, #30 TAB 0 Refills Memantine Hcl (Namenda Xr) 28 Mg Cap.spr.24 28 MG PO DAILY, CAP Sitagliptin (Januvia) 100 Mg Tablet 100 MG ORAL ACBREAKFAST for 30 Days, TAB Discharge Condition Upon Discharge: stable Discharge Disposition Patient was discharged to Assisted Living Discharge Diagnoses: Discharge Instructions Discharge Instructions Special Instructions I have been assigned to complete a D/C Summary on this account. I was not involved in the patient management Jenna Suarez NP (Vanchtein) May 20, 2016 08:12
--- NOTE | 2016-05-20 08:33 | Cardiology Report ---
APPROVED REPORT EXAM: Two-dimensional and M-mode echocardiogram with Doppler and color Doppler. INDICATION LV function M-Mode DIMENSIONS Left Atrium (MM)3.2 (1.6-4.0cm) Aortic Root3.2 (2.0-3.7cm) Aortic Cusp Exc.1.7 (1.5-2.0cm) Technically difficult study due to poor acoustical windows. Normal left ventricular chamber size, systolic function and wall motion to extent visualized. Left ventricular ejection fraction estimated to be 60 %. Moderate left ventricular hypertrophy by 2-D. Small posterior pericardial effusion. All other cardiac chamber sizes are within normal limits. Focal aortic valve sclerosis with adequate cusp excursion. Thickened mitral valve leaflets with normal excursion. Mitral annulus and aortic root calcification. Pulmonic valve not well visualized. Normal tricuspid valve structure. IVC at normal size with physiologic collapse. A color flow and spectral Doppler study was performed and revealed: Trace aortic regurgitation. Trace mitral regurgitation. Mitral diastolic velocities suggest reduced left ventricular relaxation c/w mild LV diastolic dysfunction (Grade I ). Trace tricuspid regurgitation. Tricuspid systolic velocities suggests peak right ventricular systolic pressure of 17 mmHg No pulmonic regurgitation present.
--- NOTE | 2016-05-20 08:34 | Cardiology Report ---
APPROVED REPORT EKG Measurement Heart [id number] Normal sinus rhythm Nonspecific T wave abnormality Abnormal ECG
--- NOTE | 2016-05-20 22:59 | Discharge Summary 2 SIG ---
DATE OF ADMISSION: 05/15/2016 DATE OF DISCHARGE: 05/18/2016 REASON FOR ADMISSION: 85-year-old female, was taken by paramedics due to the altered level of consciousness and syncope to [facility]. Apparently, she was sitting on the chair and next thing she remembered was being on the floor with her head up. She was taken to [facility] initially and a cardiac workup there was negative. Patient was transferred to [facility] for further care. Past medical history included diabetes, hypertension, and dementia. ADMITTING DIAGNOSES: 1. Syncope. 2. Acute encephalopathy. 3. Diabetes mellitus. 4. Hypertension. HOSPITAL STAY: The patient was admitted to telemetry floor. Cardiology consult was requested. EKG and echo were requested. Sinus rhythm on monitor. No ST changes/no ischemic changes. Echocardiogram revealed preserved ejection fraction of 60% and right ventricular systolic pressure of 17 with a moderate left ventricular hypertrophy. Public Service Director closely followed. Again, on telemetry, she was in normal sinus rhythm. No tachy or glenn events. The patient was positive for orthostatic blood pressure changes. Public Service Director agreed with loose blood pressure control to keep blood pressure above 120. The patient was asymptomatic. Blood sugar was managed with a sliding scale of insulin. Lipid panel was stable. On statin. Initial medication regimen was adjusted and simplified, The patient was initially on gentle hydration. The patient was working with physical and occupational therapists. Fall precautions maintained. Aricept and Namenda were resumed. The patient was transferred to assisted living after stabilization. DISCHARGE DIAGNOSES: 1. Syncope likely related to orthostatic blood pressure changes. 2. Acute encephalopathy. 3. Diabetes mellitus. 4. Dementia. 5. Hypertension. 6. Polypharmacy. DISCHARGE INSTRUCTIONS: The patient was discharged to assisted living. Avoid medication causing orthostatic blood pressure. Fall precautions. Continue PT and OT. Souleymane Crow M.D. I have been assigned to dictate discharge summary on this account and I was not involved in the patient's management. Jenna Suarez ([facility] Hospital[facility]ana N.PSae DR: DAISY JOB#: [id number] CC: RONNI
== END 2016-05-18 18:45 | DRG 312 ==
LOC: 2E 17:13
DX: I95.1 Orthostatic hypotension (principal); G93.40 Encephalopathy, unspecified; F03.90 Unspecified dementia, unspecified severity, without behavioral disturbance, psychotic disturbance, mood disturbance, and anxiety; E11.9 Type 2 diabetes mellitus without complications; R55 Syncope and collapse; I10 Essential (primary) hypertension; R62.7 Adult failure to thrive; Z88.8 Allergy status to other drugs, medicaments and biological substances
CPT/HCPCS: 36415; 80053; 80061; 82962; 84443; 85025; 85610; 85730; 87081; 93005; 93306; 94664; J7620

== ENCOUNTER 2017-06-16 14:40 | Inpatient (IN) | payer MEDICARE, MEDICAID ==
[~2017-06-16] VITALS: Ht 162.6 cm; Wt 52.2 kg
[~2017-06-16 14:40] MED LIST changes: +ALPHAGAN P5 M2 RIGHT EYE; +AMLODIPINE BESYL5 MG ORAL; +ARICEPT23 MG ORAL; +COREG6.25 MG ORAL; +FENOFIBRATE145 M1 ORAL; +FERROUS SULFAT325 MG ORAL; +GLYBURIDE5 MG PO; +LISINOPRIL5 MG ORAL; +LOMOTIL TABLET1 EACH ORAL; +MEGACE400 MG/11 PO; +MINTOX SUSPENS355 ML PO; +MIRTAZAPINE15 M3 ORAL; +NITROFURANTOIN100 M2 ORAL; +ROBAFEN DM COU118 ML PO; +ZANTAC150 MG ORAL; +[UNRECOGNIZED DRUG - OTHER] ORAL
[2017-06-16 14:41] VITALS: BP 158/59
--- NOTE | 2017-06-16 15:44 | Diagnostic Imaging Report ---
Indication: Shoulder pain Technique: 3 views of the left shoulder Comparison: none Findings: There are proliferative changes of the humeral head. No acute fractures. No dislocations. There is questionably an old Hill-Sachs fracture deformity Impression: Degenerative changes Possible old Hill-Sachs lesion No acute bony trauma or dislocation
--- NOTE | 2017-06-16 15:51 | Diagnostic Imaging Report ---
Indication: Chest pain Technique: One view of the chest Comparison: 09/23/2016 Findings: There is some atelectasis of the left lung base. Linear scarring is again demonstrated in the left midlung. Normal heart size. Tortuous calcified aorta. No significant interim change Impression: No acute process
[2017-06-16 15:58] LABS: BASOPHILS % (AUTO) 2.1 % (0.0-2.0); EOSINOPHILS % (AUTO) 2.9 % (0.0-3.0); HEMATOCRIT 37.9 % (37.0-47.0); HEMOGLOBIN 12.6 G/DL (12.0-16.0); LYMPHOCYTES % (AUTO) 41.3 % (20.0-45.0); MEAN CORPUSCULAR VOLUME 90 FL (80-99); MONOCYTES % (AUTO) 8.8 % (1.0-10.0); PLATELET COUNT 344 K/UL (150-450); RED BLOOD COUNT 4.23 M/UL (4.20-5.40); RED CELL DISTRIBUTION WIDTH 13.2 % (11.6-14.8); WHITE BLOOD COUNT 6.5 K/UL (4.8-10.8)
[2017-06-16 15:59] LABS: ANION GAP 9 mmol/L (5-15); BLOOD UREA NITROGEN 19 mg/dL (7-18); CARBON DIOXIDE 25 MMOL/L (21-32); CHLORIDE 108 MMOL/L (98-107); CREATININE 1.2 MG/DL (0.55-1.30); POTASSIUM 3.7 MMOL/L (3.5-5.1); SODIUM 142 MMOL/L (136-145)
[2017-06-16 16:14] LABS: ALANINE AMINOTRANSFERASE 50 U/L (12-78); ALBUMIN 3.4 G/DL (3.4-5.0); ALBUMIN/GLOBULIN RATIO 0.9 (1.0-2.7); ALKALINE PHOSPHATASE 36 U/L (46-116); ASPARTATE AMINO TRANSFERASE 39 U/L (15-37); BILIRUBIN,TOTAL 0.4 MG/DL (0.2-1.0); CKMB < 0.5 NG/ML (0.0-3.6); CREATINE KINASE 36 U/L (26-308)
[2017-06-16 17:26] VITALS: BP 144/52
[2017-06-16 18:24] VITALS: BP 169/69
[2017-06-16] MEDS ORDERED: Miralax 17gm pkt ORAL PRN (18:45)
[2017-06-16] MEDS ORDERED: Morphine Sulfate 4mg/ml Inj IVP PRN (18:45)
[2017-06-16] MEDS ORDERED: dilTIAZem HCl 25mg/5ml Inj IV PRN (18:45)
[2017-06-16] MEDS ORDERED: Ketorolac 30mg Inj IV PRN (18:45)
[2017-06-16] MEDS ORDERED: Albuterol/Ipratropium 3ml neb HHN PRN (18:45)
[2017-06-16] MEDS ORDERED: Enalaprilat 2.5mg/2ml Inj IV PRN (18:45)
[2017-06-16] MEDS ORDERED: Nitroglycerin Subl 0.4mg tab SL PRN (18:45)
[2017-06-16] MEDS: NovoLOG Insulin Flexpen SUBQ SCH (20:51)
[2017-06-16] MEDS: Carvedilol 6.25mg Tab ORAL SCH (20:57)
[2017-06-16 21:52] VITALS: BP 141/68
[2017-06-16] MEDS: Heparin 5000 units/ml inj SUBQ SCH (22:00)
[2017-06-17] VITALS: BP 129/60
[2017-06-17 04:00] VITALS: BP 124/60
[2017-06-17] MEDS: NovoLOG Insulin Flexpen SUBQ SCH ×4 (06:22→20:35)
[2017-06-17] MEDS: Heparin 5000 units/ml inj SUBQ SCH ×3 (06:32→22:00)
[2017-06-17 07:36] VITALS: BP 127/71
[2017-06-17] MEDS: Aspirin Baby 81mg ORAL SCH (08:43)
[2017-06-17] MEDS: Lisinopril 10mg tab ORAL SCH (08:43)
[2017-06-17] MEDS: Carvedilol 6.25mg Tab ORAL SCH ×2 (08:43→20:31)
--- NOTE | 2017-06-17 11:08 | Cardiology Progress Note ---
Assessment/Plan Assessment/Plan near syncope poor po intake due to dislike of food at snf htn hs dm d/c coreg hold parameters for otehr bp med needs to be encourged to drink more fluids to rpevent echo tele so far neg repeat ekg adn trop orthostatic vitals [id number] Objective Last 24 Hour Vital Signs Date Time Temp Pulse Resp B/P (MAP) Pulse Ox O2 Delivery O2 Flow Rate FiO2 06/17/17 08:44 68 127/71 06/17/17 08:43 127/71 06/17/17 08:43 68 127/71 06/17/17 08:00 70 06/17/17 07:36 97.6 68 20 127/71 99 97.6 06/17/17 04:00 97.8 60 18 124/60 99 Room Air 97.8 06/17/17 04:00 59 06/17/17 00:00 62 06/17/17 00:00 97.9 63 18 129/60 100 Room Air 97.9 06/16/17 21:52 97.0 64 20 141/68 95 Room Air 97.0 06/16/17 20:57 64 141/68 06/16/17 20:00 65 06/16/17 18:24 98.8 65 18 169/69 100 Room Air 98.8 06/16/17 17:35 98.8 71 18 144/52 100 Room Air 98.8 06/16/17 17:26 98.8 71 18 144/52 100 Room Air 98.8 06/16/17 14:41 98.8 68 18 158/59 100 Room Air 98.8 06/16/17 14:31 98.8 68 18 136/80 96 Room Air 98.8 Intake and Output 06/16/17 06/17/17 19:00 07:00 Intake Total 0 ml Balance 0 ml Intake Oral 0 ml # Bowel Movements 1 Laboratory Tests Test 06/16/17 15:10 White Blood Count 6.5 K/UL (4.8-10.8) Red Blood Count 4.23 M/UL (4.20-5.40) Hemoglobin 12.6 G/DL (12.0-16.0) Hematocrit 37.9 % (37.0-47.0) Mean Corpuscular Volume 90 FL (80-99) Mean Corpuscular Hemoglobin 29.9 PG (27.0-31.0) Mean Corpuscular Hemoglobin Concent 33.3 G/DL (32.0-36.0) Red Cell Distribution Width 13.2 % (11.6-14.8) Platelet Count 344 K/UL (150-450) Mean Platelet Volume 7.4 FL (6.5-10.1) Neutrophils (%) (Auto) 45.0 % (45.0-75.0) Lymphocytes (%) (Auto) 41.3 % (20.0-45.0) Monocytes (%) (Auto) 8.8 % (1.0-10.0) Eosinophils (%) (Auto) 2.9 % (0.0-3.0) Basophils (%) (Auto) 2.1 % (0.0-2.0) H Sodium Level 142 MMOL/L (136-145) Potassium Level 3.7 MMOL/L (3.5-5.1) Chloride Level 108 MMOL/L (98-107) H Carbon Dioxide Level 25 MMOL/L (21-32) Anion Gap 9 mmol/L (5-15) Blood Urea Nitrogen 19 mg/dL (7-18) H Creatinine 1.2 MG/DL (0.55-1.30) Estimat Glomerular Filtration Rate mL/min (>60) Glucose Level 106 MG/DL (74-106) Calcium Level 10.0 MG/DL (8.5-10.1) Total Bilirubin 0.4 MG/DL (0.2-1.0) Aspartate Amino Transf (AST/SGOT) 39 U/L (15-37) H Alanine Aminotransferase (ALT/SGPT) 50 U/L (12-78) Alkaline Phosphatase 36 U/L (46-116) L Total Creatine Kinase 36 U/L (26-308) Creatine Kinase MB < 0.5 NG/ML (0.0-3.6) Creatine Kinase MB Relative Index 1.3 Troponin I 0.001 ng/mL (0.000-0.056) Total Protein 7.0 G/DL (6.4-8.2) Albumin 3.4 G/DL (3.4-5.0) Globulin 3.6 g/dL Albumin/Globulin Ratio 0.9 (1.0-2.7) L Lipase 466 U/L (73-393) H LORRIE SHIN Jun 17, 2017 11:08
--- NOTE | 2017-06-17 11:24 | History and Physical ---
History of Present Illness General Date patient seen: Jun 17, 2017 Reason for Hospitalization: General Complaint Present Illness HPI 86 year old female with hx of vertigo, Dementia, HTN, DM, resident of [facility], brought in by paramedics b/o a few episodes of fainting and left arm weakness, as reported by nursing staff, and left sided chest pain. She is admitted for further evaluation. No fever, chills, weight loss. No N/V/D. Allergies: Coded Allergies: IODINE (Verified Allergy, Intermediate, 04/06/16) VALSARTAN (Verified Allergy, Unknown, 03/07/16) Medication History Scheduled Amlodipine Besylate (Norvasc), 2.5 MG ORAL BID Amlodipine Besylate* (Amlodipine Besylate*), 5 MG ORAL DAILY, (Reported) Aspirin Ec* (Aspirin Ec*), 81 MG ORAL DAILY, (Reported) Brimonidine Tartrate (Alphagan P), 5 ML RIGHT EYE BID, (Reported) Brimonidine Tartrate* (Alphagan*), 1 DROP RIGHT EYE BID, (Reported) Carvedilol (Coreg), 6.25 MG ORAL EVERY 12 HOURS, (Reported) Donepezil Hcl (Aricept), 10 MG ORAL QPM, (Reported) Fenofibrate Nanocrystallized (Fenofibrate), 160 MG ORAL BEDTIME, (Reported) Ferrous Sulfate* (Ferrous Sulfate*), 325 MG ORAL TWICE A DAY, (Reported) Glyburide (Glyburide), 5 MG PO BID, (Reported) Lisinopril (Lisinopril*), 10 MG ORAL DAILY, (Reported) Megestrol Acetate (Megestrol Acetate), 625 MG PO DAILY, (Reported) Megestrol Acetate (Megace), 40 MG PO DAILY, (Reported) Memantine Hcl (Namenda Xr), 28 MG PO DAILY, (Reported) Memantine Hcl (Namenda Xr), 28 MG PO DAILY, (Reported) Metformin Hcl* (Glucophage*), 500 MG ORAL BIDLS Mirtazapine* (Mirtazapine*), 45 MG ORAL BEDTIME, (Reported) Multivitamin W-Minerals/Lutein (Cerovite Senior Tablet), 1 EACH PO DAILY, ( Reported) Multivitamin W-Minerals/Lutein (Cerovite Senior Tablet), 1 EACH PO DAILY, ( Reported) Nebivolol Hcl* (Bystolic*), 5 MG ORAL DAILY, (Reported) Nitrofurantoin Monohyd/M-Cryst* (Macrobid 100 Mg*), 100 MG ORAL BID, (Reported) Pantoprazole* (Protonix*), 40 MG ORAL DAILY Ranitidine Hcl* (Zantac*), 150 MG ORAL TWICE A DAY, (Reported) Sitagliptin (Januvia), 100 MG ORAL ACBREAKFAST Travoprost (Travatan Z), 5 ML RIGHT EYE QHS, (Reported) Trimethoprim/Sulfamethoxazole (Bactrim Ds Tablet), 1 EA ORAL DAILY Scheduled PRN Acetaminophen* (Acetaminophen 325MG Tablet*), 650 MG ORAL Q4H PRN Diphenoxylate Hcl/Atropine (Lomotil Tablet), 1 TAB ORAL DAILY PRN for loose stool, (Reported) Guaifenesin/Dextromethorphan (Robafen Dm Cough Liquid), 15 ML PO EVERY 6 HOURS PRN for For Cough, (Reported) Mag Hydrox/Al Hydrox/Simeth (Mintox Suspension), 30 ML PO EVERY 4 HOURS PRN for gas pain, (Reported) Patient History Healthcare decision maker Resuscitation status Advanced Directive on File Yes Past Medical/Surgical History Past Medical/Surgical History: (1) HTN (hypertension) (2) Diabetes (3) Dementia Review of Systems Constitutional: Reports: no symptoms Neurological: Reports: focal weakness - left arm All Other Systems: negative except mentioned in HPI Physical Exam General Appearance: cachetic Lines, tubes and drains: peripheral HEENT: normocephalic, anicteric Neck: non-tender, normal alignment Respiratory/Chest: chest wall non-tender, lungs clear Breasts: no masses Cardiovascular/Chest: normal rate, no JVD Last 24 Hour Vital Signs Date Time Temp Pulse Resp B/P (MAP) Pulse Ox O2 Delivery O2 Flow Rate FiO2 06/17/17 08:44 68 127/71 06/17/17 08:43 127/71 06/17/17 08:43 68 127/71 06/17/17 08:00 70 06/17/17 07:36 97.6 68 20 127/71 99 97.6 06/17/17 04:00 97.8 60 18 124/60 99 Room Air 97.8 06/17/17 04:00 59 4/24/18 00:00 62 06/17/17 00:00 97.9 63 18 129/60 100 Room Air 97.9 06/16/17 21:52 97.0 64 20 141/68 95 Room Air 97.0 06/16/17 20:57 64 141/68 06/16/17 20:00 65 06/16/17 18:24 98.8 65 18 169/69 100 Room Air 98.8 06/16/17 17:35 98.8 71 18 144/52 100 Room Air 98.8 06/16/17 17:26 98.8 71 18 144/52 100 Room Air 98.8 06/16/17 14:41 98.8 68 18 158/59 100 Room Air 98.8 06/16/17 14:31 98.8 68 18 136/80 96 Room Air 98.8 Intake and Output 06/16/17 06/17/17 19:00 07:00 Intake Total 0 ml Balance 0 ml Intake Oral 0 ml # Bowel Movements 1 Laboratory Tests Test 06/16/17 15:10 White Blood Count 6.5 K/UL (4.8-10.8) Red Blood Count 4.23 M/UL (4.20-5.40) Hemoglobin 12.6 G/DL (12.0-16.0) Hematocrit 37.9 % (37.0-47.0) Mean Corpuscular Volume 90 FL (80-99) Mean Corpuscular Hemoglobin 29.9 PG (27.0-31.0) Mean Corpuscular Hemoglobin Concent 33.3 G/DL (32.0-36.0) Red Cell Distribution Width 13.2 % (11.6-14.8) Platelet Count 344 K/UL (150-450) Mean Platelet Volume 7.4 FL (6.5-10.1) Neutrophils (%) (Auto) 45.0 % (45.0-75.0) Lymphocytes (%) (Auto) 41.3 % (20.0-45.0) Monocytes (%) (Auto) 8.8 % (1.0-10.0) Eosinophils (%) (Auto) 2.9 % (0.0-3.0) Basophils (%) (Auto) 2.1 % (0.0-2.0) H Sodium Level 142 MMOL/L (136-145) Potassium Level 3.7 MMOL/L (3.5-5.1) Chloride Level 108 MMOL/L (98-107) H Carbon Dioxide Level 25 MMOL/L (21-32) Anion Gap 9 mmol/L (5-15) Blood Urea Nitrogen 19 mg/dL (7-18) H Creatinine 1.2 MG/DL (0.55-1.30) Estimat Glomerular Filtration Rate mL/min (>60) Glucose Level 106 MG/DL (74-106) Calcium Level 10.0 MG/DL (8.5-10.1) Total Bilirubin 0.4 MG/DL (0.2-1.0) Aspartate Amino Transf (AST/SGOT) 39 U/L (15-37) H Alanine Aminotransferase (ALT/SGPT) 50 U/L (12-78) Alkaline Phosphatase 36 U/L (46-116) L Total Creatine Kinase 36 U/L (26-308) Creatine Kinase MB < 0.5 NG/ML (0.0-3.6) Creatine Kinase MB Relative Index 1.3 Troponin I 0.001 ng/mL (0.000-0.056) Total Protein 7.0 G/DL (6.4-8.2) Albumin 3.4 G/DL (3.4-5.0) Globulin 3.6 g/dL Albumin/Globulin Ratio 0.9 (1.0-2.7) L Lipase 466 U/L (73-393) H Height (Feet): 5 Height (Inches): 4.00 Weight (Pounds): 115 Medications Current Medications Medications (Trade) Dose Ordered Sig/Jesenia Route PRN Reason Start Time Stop Time Status Last Admin Dose Admin Acetaminophen (Tylenol) 650 mg Q4H PRN ORAL FEVER 06/16/17 18:45 07/16/17 18:44 Albuterol/ Ipratropium (Albuterol/ Ipratropium) 3 ml EVERY 4 HOURS PRN HHN Shortness of Breath 06/16/17 18:45 06/21/17 18:44 Amlodipine Besylate (Norvasc) 5 mg DAILY ORAL 06/17/17 09:00 07/17/17 08:59 06/17/17 08:44 Aspirin (ASA) 162 mg DAILY ORAL 06/17/17 09:00 07/17/17 08:59 06/17/17 08:43 Carvedilol (Coreg) 6.25 mg EVERY 12 HOURS ORAL 06/16/17 21:00 07/16/17 20:59 06/17/17 08:43 Dextrose (Dextrose 50%) 25 ml STAT PRN IV BS 60-69mg/dl 06/16/17 19:15 07/16/17 19:14 Dextrose (Dextrose 50%) 50 ml STAT PRN IV BS less than 60mg/dl 06/16/17 18:45 07/16/17 18:44 Diltiazem HCl (Cardizem) 10 mg EVERY HOUR PRN IV heart rate more than 120, 06/16/17 18:45 07/16/17 18:44 Enalaprilat (Vasotec) 2.5 mg EVERY 6 HOURS PRN IV sbp more than 160 06/16/17 18:45 07/16/17 18:44 Heparin Sodium (Porcine) (Heparin 5000 units/ml) 5,000 units EVERY 8 HOURS SUBQ 06/16/17 22:00 07/16/17 21:59 06/17/17 06:32 Insulin Aspart (NovoLOG) BEFORE MEALS AND HS SUBQ 06/16/17 21:00 07/16/17 20:59 Ketorolac Tromethamine (Toradol 30mg) 30 mg Q6HR PRN IV moderate pain ( 4-6) 06/16/17 18:45 06/21/17 18:44 Lisinopril (Zestril) 10 mg DAILY ORAL 06/17/17 09:00 07/17/17 08:59 06/17/17 08:43 Morphine Sulfate (Morphine Sulfate) 2 mg EVERY 4 HOURS PRN IVP severe Pain (Pain Scale 7-10) 06/16/17 18:45 06/23/17 18:44 Nitroglycerin (Ntg) 0.4 mg Every 5 Minutes PRN SL Prn Chest Pain 06/16/17 18:45 07/16/17 18:44 Ondansetron HCl (Zofran) 4 mg Q6H PRN IVP Nausea & Vomiting 06/16/17 18:45 07/16/17 18:44 Pantoprazole (Protonix) 40 mg DAILY ORAL 06/17/17 09:00 07/17/17 08:59 06/17/17 08:43 Polyethylene Glycol (Miralax) 17 gm DAILYPRN PRN ORAL Constipation 06/16/17 18:45 07/16/17 18:44 Sitagliptin Phosphate (Januvia) 100 mg ACBREAKFAST ORAL 06/17/17 06:30 07/17/17 06:29 06/17/17 06:26 Temazepam (Restoril) 15 mg HSPRN PRN ORAL Insomnia 06/16/17 18:45 06/23/17 18:44 Assessment/Plan Problem List: (1) ACS (acute coronary syndrome) ICD Codes: I24.9 - Acute ischemic heart disease, unspecified SNOMED: 379029223 (2) Cerebrovascular accident (CVA) ICD Codes: I63.9 - Cerebral infarction, unspecified SNOMED: 082419328 (3) HTN (hypertension) ICD Codes: I10 - Essential (primary) hypertension SNOMED: 99393511 (4) Diabetes ICD Codes: E11.9 - Type 2 diabetes mellitus without complications SNOMED: 46640032 (5) Dementia ICD Codes: F03.90 - Unspecified dementia without behavioral disturbance SNOMED: 10667530 (6) Syncope ICD Codes: R55 - Syncope and collapse SNOMED: 458253675 (7) Failure to thrive SNOMED: 22744004 Assessment/Plan telemetry monitoring neuro evaluation serial ekg, echocardiogram pt/ot Souleymane Crow MD Jun 17, 2017 11:24
[2017-06-17 12:04] VITALS: BP 144/65
[2017-06-17] MEDS ORDERED: Sodium Chloride 500ML 550 ML IV ONE (13:15)
--- NOTE | 2017-06-17 13:35 | Cardiology Report ---
APPROVED REPORT EXAM: Two-dimensional and M-mode echocardiogram with Doppler and color Doppler. INDICATION Left ventricular function M-Mode DIMENSIONS IVSd0.8 (0.7-1.1cm)Left Atrium (MM)3.7 (1.6-4.0cm) LVDd4.3 (3.5-5.6cm)Aortic Root3.0 (2.0-3.7cm) PWd1.0 (0.7-1.1cm)Aortic Cusp Exc.1.8 (1.5-2.0cm) LVDs2.4 (2.5-4.0cm) PWs1.0 cm Technically difficult study due to poor acoustical windows. Normal left ventricular chamber size, systolic function and wall motion. Left ventricular ejection fraction estimated to be 70-75%. No evidence of left ventricular hypertrophy. No evidence of pericardial or pleural effusion. All other cardiac chamber sizes are within normal limits. Focal aortic valve sclerosis with adequate cusp excursion. Thickened mitral valve leaflets with normal excursion. Mild mitral annulus and aortic root calcification. Pulmonic valve not well visualized. Normal tricuspid valve structure. IVC is small suggestive of iv volume depletion A color flow and spectral Doppler study was performed and revealed: No aortic regurgitation. No mitral regurgitation. Mitral diastolic velocities suggest reduced left ventricular relaxation c/w diastolic dysfunction grade 1. No tricuspid regurgitation.
--- NOTE | 2017-06-17 13:43 | Cardiology Report ---
APPROVED REPORT EKG Measurement Heart [id number] Normal sinus rhythm Cannot rule out Anterior infarct, age undetermined Abnormal ECG
[2017-06-17 16:00] VITALS: BP 126/56
--- NOTE | 2017-06-17 16:30 | Consultation ---
DATE OF CONSULTATION: 06/17/2017 CARDIOLOGY CONSULTATION CONSULTING PHYSICIAN: Oscar Sanon M.D. REFERRING PHYSICIAN: Souleymane Crow M.D. REASON FOR REFERRAL: Syncope or near syncope. HISTORY OF PRESENT ILLNESS: This is an 87-year-old female, a resident of a convalescent facility, who apparently went out to lunch with her daughter, sat down, and while trying to order, she apparently felt lightheaded. Did not really fall down or lose consciousness, but almost did. Paramedics were summoned. Apparently, the patient was brought to the emergency room here at [facility] and has been admitted and this consultation was subsequently requested. The patient has no complaints of chest pain or shortness of breath. No PND. No orthopnea. Uses one pillow. Does have some episodes of lightheadedness and dizziness when she stands up. She has had some near syncopal episodes a couple of weeks ago. Apparently, she really does not eat a lot of food because she does not like the food at the facility where she is residing at. There have been no other medical issues. There has been no diarrhea, no vomiting. She does have some mild sweating in the upper chest area. PAST MEDICAL HISTORY: Positive for history of toxic metabolic encephalopathy, acute on chronic renal insufficiency, dementia, diabetes mellitus, hypertension, and prior possible syncope. I had seen her back in April of 2016 and at that time, she also had syncope as well. No workup to indicate bradycardia. Her other medical problems have included systemic hypertension, diabetes mellitus, and dementia as well. ALLERGIES: To Diovan and iodine according to the notes. REVIEW OF SYSTEMS: GASTROINTESTINAL: She denies any nausea, vomiting, diarrhea, or constipation. GENITOURINARY: She denies. PULMONARY: She denies. CONSTITUTIONAL: She has had some sweats. NEUROLOGICAL: Numbness and tingling sensation in her toes. CARDIAC: As mentioned in HPI. SOCIAL HISTORY: She resides in a facility. Does not smoke or drink alcoholic beverages. PHYSICAL EXAMINATION: GENERAL: Shows to be elderly female, in no respiratory distress. NECK: Supple. There is no jugular venous distention. No abdominojugular reflux noted. LUNGS: Appear to be clear to auscultation and percussion. CARDIAC: Regular rhythm. No heaves, thrills, gallops, or rubs are noted. ABDOMEN: Soft and nontender. Positive bowel sounds. EXTREMITIES: There is no clubbing, cyanosis, or edema. NEUROLOGICAL: She is awake, responsive. VITAL SIGNS: Blood pressure is anywhere between 127/71 to 129/60, heart rate in the 59 to 70 range. LABORATORY DATA: White count 6.5, hemoglobin 12.6, platelet count 344. Sodium 142, potassium 3.7, chloride 108, bicarbonate 25, BUN of 19, and a creatinine of 1.2, this is from yesterday. First set of cardiac enzymes negative. AST and ALT normal, and her lipase was increased at 466, which is slightly above normal range for this hospital. No coags were done, and no urinalysis was done. IMAGING: Shoulder x-rays were performed showed degenerative changes, possible old Hill-Sachs lesion. No acute bony trauma or dislocations, and a chest x-ray was performed, no acute processes. Venous duplex study of lower extremities is unremarkable. EKG shows sinus rhythm at a rate of 64, leftward axis, really no significant ST-T wave abnormalities. ASSESSMENT AND PLAN: 1. Near syncope with history of the same. 2. History of dementia. 3. Chronic renal insufficiency. 4. Diabetes mellitus. 5. Systemic hypertension. Dr. Crow, this patient was seen in cardiac consultation. The patient has had some poor p.o. intake at the convalescent facility, which will likely may be contributing to some orthostatic symptoms. She has been monitored so far. No signs or symptoms or significant arrhythmia issues have been identified on telemetry so far. An echocardiogram is being performed at this time. We will see the results of that and we will repeat cardiac enzymes today as well as a set of EKG. Orthostatic vitals should also be checked to make sure she is no longer orthostatic. She should be encouraged to drink plenty of fluids. As far as her medications are concerned, the convalescent facility list does include amlodipine at low degree of 2.5 and Remeron, which may contribute to some degree of hypotension, and she is also reportedly on Bystolic, which can also contribute this to had as well, Coreg as well as lisinopril. I would favor discontinuation of probably one of the medications, possibly Coreg for the time being with hold parameters for amlodipine if her standing blood pressures are low in the future. IV fluid administration and further recommendations if needed. Oscar Sanon M.D. DR: GERMAIN JOB#: [id number] CC:
[2017-06-17 20:00] VITALS: BP 110/54
--- NOTE | 2017-06-17 23:16 | Consultation ---
History of Present Illness General Date patient seen: Jun 17, 2017 Chief Complaint: General Complaint Present Illness HPI 87-year-old female, with hx of dementia and depression who was on Aricept, Namenda and Remeron prior to admission went out to lunch with her daughter, sat down, and while trying to order, she apparently felt lightheaded however didn't fall. the pts family requested the meds to be continued. During the eval the pt was able to answer the questions and she is forgetful Allergies: Coded Allergies: IODINE (Verified Allergy, Intermediate, 04/06/16) VALSARTAN (Verified Allergy, Unknown, 03/07/16) Medication History Scheduled Amlodipine Besylate (Norvasc), 2.5 MG ORAL BID Amlodipine Besylate* (Amlodipine Besylate*), 5 MG ORAL DAILY, (Reported) Aspirin Ec* (Aspirin Ec*), 81 MG ORAL DAILY, (Reported) Brimonidine Tartrate (Alphagan P), 5 ML RIGHT EYE BID, (Reported) Brimonidine Tartrate* (Alphagan*), 1 DROP RIGHT EYE BID, (Reported) Carvedilol (Coreg), 6.25 MG ORAL EVERY 12 HOURS, (Reported) Donepezil Hcl (Aricept), 10 MG ORAL QPM, (Reported) Fenofibrate Nanocrystallized (Fenofibrate), 160 MG ORAL BEDTIME, (Reported) Ferrous Sulfate* (Ferrous Sulfate*), 325 MG ORAL TWICE A DAY, (Reported) Glyburide (Glyburide), 5 MG PO BID, (Reported) Lisinopril (Lisinopril*), 10 MG ORAL DAILY, (Reported) Megestrol Acetate (Megestrol Acetate), 625 MG PO DAILY, (Reported) Megestrol Acetate (Megace), 40 MG PO DAILY, (Reported) Memantine Hcl (Namenda Xr), 28 MG PO DAILY, (Reported) Memantine Hcl (Namenda Xr), 28 MG PO DAILY, (Reported) Metformin Hcl* (Glucophage*), 500 MG ORAL BIDLS Mirtazapine* (Mirtazapine*), 45 MG ORAL BEDTIME, (Reported) Multivitamin W-Minerals/Lutein (Cerovite Senior Tablet), 1 EACH PO DAILY, ( Reported) Multivitamin W-Minerals/Lutein (Cerovite Senior Tablet), 1 EACH PO DAILY, ( Reported) Nebivolol Hcl* (Bystolic*), 5 MG ORAL DAILY, (Reported) Nitrofurantoin Monohyd/M-Cryst* (Macrobid 100 Mg*), 100 MG ORAL BID, (Reported) Pantoprazole* (Protonix*), 40 MG ORAL DAILY Ranitidine Hcl* (Zantac*), 150 MG ORAL TWICE A DAY, (Reported) Sitagliptin (Januvia), 100 MG ORAL ACBREAKFAST Travoprost (Travatan Z), 5 ML RIGHT EYE QHS, (Reported) Trimethoprim/Sulfamethoxazole (Bactrim Ds Tablet), 1 EA ORAL DAILY Scheduled PRN Acetaminophen* (Acetaminophen 325MG Tablet*), 650 MG ORAL Q4H PRN Diphenoxylate Hcl/Atropine (Lomotil Tablet), 1 TAB ORAL DAILY PRN for loose stool, (Reported) Guaifenesin/Dextromethorphan (Robafen Dm Cough Liquid), 15 ML PO EVERY 6 HOURS PRN for For Cough, (Reported) Mag Hydrox/Al Hydrox/Simeth (Mintox Suspension), 30 ML PO EVERY 4 HOURS PRN for gas pain, (Reported) Patient History Limited by: medical condition History Provided By: Patient, Medical Record, PMD Healthcare decision maker Resuscitation status Advanced Directive on File Yes Past Medical/Surgical History Past Medical/Surgical History: (1) Dizziness (2) Polypharmacy (3) Acute encephalopathy (4) Problem (5) Dementia (6) Diabetes (7) HTN (hypertension) (8) Failure to thrive (9) Syncope (10) ACS (acute coronary syndrome) (11) Cerebrovascular accident (CVA) Review of Systems Psychiatric: Reports: prior hx, anxiety, depressed feelings Physical Exam General Appearance: no apparent distress, alert Neurologic: oriented x 3, responsive, depressed affect Last 24 Hour Vital Signs Date Time Temp Pulse Resp B/P (MAP) Pulse Ox O2 Delivery O2 Flow Rate FiO2 06/17/17 20:31 65 110/54 06/17/17 20:00 68 06/17/17 20:00 97.7 65 16 110/54 96 Room Air 97.7 06/17/17 19:54 64 73 105 06/17/17 16:00 68 06/17/17 16:00 98.2 64 18 126/56 99 Room Air 98.2 06/17/17 12:06 62 75 79 06/17/17 12:04 99.1 62 18 144/65 99 Room Air 99.1 06/17/17 12:00 67 06/17/17 08:44 68 127/71 06/17/17 08:43 127/71 06/17/17 08:43 68 127/71 06/17/17 08:00 70 06/17/17 07:36 97.6 68 20 127/71 99 97.6 06/17/17 04:00 97.8 60 18 124/60 99 Room Air 97.8 06/17/17 04:00 59 06/17/17 00:00 62 06/17/17 00:00 97.9 63 18 129/60 100 Room Air 97.9 Intake and Output 06/16/17 06/17/17 19:00 07:00 Intake Total 0 ml Balance 0 ml Intake Oral 0 ml # Bowel Movements 1 Height (Feet): 5 Height (Inches): 4.00 Weight (Pounds): 115 Medications Current Medications Medications (Trade) Dose Ordered Sig/Jesenia Route PRN Reason Start Time Stop Time Status Last Admin Dose Admin Acetaminophen (Tylenol) 650 mg Q4H PRN ORAL FEVER 06/16/17 18:45 07/16/17 18:44 Albuterol/ Ipratropium (Albuterol/ Ipratropium) 3 ml EVERY 4 HOURS PRN HHN Shortness of Breath 06/16/17 18:45 06/21/17 18:44 Amlodipine Besylate (Norvasc) 5 mg DAILY ORAL 06/17/17 09:00 07/17/17 08:59 06/17/17 08:44 Aspirin (ASA) 162 mg DAILY ORAL 06/17/17 09:00 07/17/17 08:59 06/17/17 08:43 Carvedilol (Coreg) 6.25 mg EVERY 12 HOURS ORAL 06/16/17 21:00 07/16/17 20:59 06/17/17 20:31 Dextrose (Dextrose 50%) 25 ml STAT PRN IV BS 60-69mg/dl 06/16/17 19:15 07/16/17 19:14 Dextrose (Dextrose 50%) 50 ml STAT PRN IV BS less than 60mg/dl 06/16/17 18:45 07/16/17 18:44 Diltiazem HCl (Cardizem) 10 mg EVERY HOUR PRN IV heart rate more than 120, 06/16/17 18:45 07/16/17 18:44 Enalaprilat (Vasotec) 2.5 mg EVERY 6 HOURS PRN IV sbp more than 160 06/16/17 18:45 07/16/17 18:44 Heparin Sodium (Porcine) (Heparin 5000 units/ml) 5,000 units EVERY 8 HOURS SUBQ 06/16/17 22:00 07/16/17 21:59 06/17/17 06:32 Insulin Aspart (NovoLOG) BEFORE MEALS AND HS SUBQ 06/16/17 21:00 07/16/17 20:59 06/17/17 20:35 Ketorolac Tromethamine (Toradol 30mg) 30 mg Q6HR PRN IV moderate pain ( 4-6) 06/16/17 18:45 06/21/17 18:44 Lisinopril (Zestril) 10 mg DAILY ORAL 06/17/17 09:00 07/17/17 08:59 06/17/17 08:43 Morphine Sulfate (Morphine Sulfate) 2 mg EVERY 4 HOURS PRN IVP severe Pain (Pain Scale 7-10) 06/16/17 18:45 06/23/17 18:44 Nitroglycerin (Ntg) 0.4 mg Every 5 Minutes PRN SL Prn Chest Pain 06/16/17 18:45 07/16/17 18:44 Ondansetron HCl (Zofran) 4 mg Q6H PRN IVP Nausea & Vomiting 06/16/17 18:45 07/16/17 18:44 Pantoprazole (Protonix) 40 mg DAILY ORAL 06/17/17 09:00 07/17/17 08:59 06/17/17 08:43 Polyethylene Glycol (Miralax) 17 gm DAILYPRN PRN ORAL Constipation 06/16/17 18:45 07/16/17 18:44 Sitagliptin Phosphate (Januvia) 100 mg ACBREAKFAST ORAL 06/17/17 06:30 07/17/17 06:29 06/17/17 06:26 Temazepam (Restoril) 15 mg HSPRN PRN ORAL Insomnia 06/16/17 18:45 06/23/17 18:44 06/17/17 20:32 Assessment/Plan Assessment/Plan mdd dementia remeron 45 [facility] aricept Lencho Galvan M.D. Jun 17, 2017 23:16
[2017-06-18] VITALS: BP 117/48
--- NOTE | 2017-06-18 01:43 | Emergency Room Report ---
History of Present Illness General Chief Complaint: General Complaint Source: Patient, Medical Record, PMD Present Illness HPI Patient presents from nursing facility with complaints of left shoulder pain mid chest pain Family also reports patient had a syncopal episode last Initially upon arrival patient refused any intervention However after talking to the daughter and speaking to her again she was agreeable to examination Denies any chest pain at this time Left shoulder pain is 3 out of 10 worse with movement denies any vomiting she had some mild nausea denies any focal weakness Allergies: Coded Allergies: IODINE (Verified Allergy, Intermediate, 04/06/16) VALSARTAN (Verified Allergy, Unknown, 03/07/16) Patient History Past Medical History: see triage record Pertinent Family History: none Last Menstrual Period: [place] Now: No Reviewed Nursing Documentation: PMH: Agreed; PSxH: Agreed Nursing Documentation-PMH Hx Cardiac Problems: Yes Hx Hypertension: Yes Hx Diabetes: Yes Hx Cancer: No Hx Gastrointestinal Problems: No Hx Neurological Problems: Yes - dementia Hx Dementia: Yes - mild dementia Hx Alzheimer's Disease: Yes Hx Syncope: Yes Review of Systems All Other Systems: negative except mentioned in HPI Physical Exam Vital Signs Date Time Temp Pulse Resp B/P (MAP) Pulse Ox O2 Delivery O2 Flow Rate FiO2 06/16/17 14:31 98.8 68 18 136/80 96 Room Air 98.8 Sp02 EP Interpretation: reviewed, normal General Appearance: well appearing, no apparent distress Head: normocephalic, atraumatic Eyes: bilateral eye PERRL, bilateral eye EOMI ENT: hearing grossly normal, normal pharynx, TMs + canals normal, uvula midline Neck: full range of motion, supple, no meningismus, no bony tend Respiratory: lungs clear, normal breath sounds, no rhonchi, no respiratory distress, no retraction, no accessory muscle use Cardiovascular #1: normal peripheral pulses, regular rate, rhythm, no edema, no gallop, no JVD, no murmur Gastrointestinal: normal bowel sounds, non tender, soft, no mass, no organomegaly, non-distended, no guarding, no hernia, no pulsatile mass, no rebound Genitourinary: no CVA tenderness Musculoskeletal: normal inspection - However tender on palpation of left shoulder no swelling no ecchymosis Neurologic: oriented x3, responsive, manager assurance III-XII nml as tested, motor strength/ tone normal, sensory intact Psychiatric: mood/affect normal Skin: normal color, no rash, warm/dry, palpation normal Lymphatic: normal inspection, no adenopathy Medical Decision Making Diagnostic Impression: Primary Impression: ACS (acute coronary syndrome) ER Course Patient is a fairly complex patient with multiple differential to consideration including but not limited to cardiac cardiopulmonary and vascular emergencies Patient blood work at baseline levels X-ray of the chest and left shoulder are normal Given her comorbidities And complaint patient is admitted for further Labs Test 06/16/17 15:10 White Blood Count 6.5 K/UL (4.8-10.8) Red Blood Count 4.23 M/UL (4.20-5.40) Hemoglobin 12.6 G/DL (12.0-16.0) Hematocrit 37.9 % (37.0-47.0) Mean Corpuscular Volume 90 FL (80-99) Mean Corpuscular Hemoglobin 29.9 PG (27.0-31.0) Mean Corpuscular Hemoglobin Concent 33.3 G/DL (32.0-36.0) Red Cell Distribution Width 13.2 % (11.6-14.8) Platelet Count 344 K/UL (150-450) Mean Platelet Volume 7.4 FL (6.5-10.1) Neutrophils (%) (Auto) 45.0 % (45.0-75.0) Lymphocytes (%) (Auto) 41.3 % (20.0-45.0) Monocytes (%) (Auto) 8.8 % (1.0-10.0) Eosinophils (%) (Auto) 2.9 % (0.0-3.0) Basophils (%) (Auto) 2.1 % (0.0-2.0) Sodium Level 142 MMOL/L (136-145) Potassium Level 3.7 MMOL/L (3.5-5.1) Chloride Level 108 MMOL/L (98-107) Carbon Dioxide Level 25 MMOL/L (21-32) Anion Gap 9 mmol/L (5-15) Blood Urea Nitrogen 19 mg/dL (7-18) Creatinine 1.2 MG/DL (0.55-1.30) Estimat Glomerular Filtration Rate mL/min (>60) Glucose Level 106 MG/DL (74-106) Calcium Level 10.0 MG/DL (8.5-10.1) Total Bilirubin 0.4 MG/DL (0.2-1.0) Aspartate Amino Transf (AST/SGOT) 39 U/L (15-37) Alanine Aminotransferase (ALT/SGPT) 50 U/L (12-78) Alkaline Phosphatase 36 U/L (46-116) Total Creatine Kinase 36 U/L (26-308) Creatine Kinase MB < 0.5 NG/ML (0.0-3.6) Creatine Kinase MB Relative Index 1.3 Troponin I 0.001 ng/mL (0.000-0.056) Total Protein 7.0 G/DL (6.4-8.2) Albumin 3.4 G/DL (3.4-5.0) Globulin 3.6 g/dL Albumin/Globulin Ratio 0.9 (1.0-2.7) Lipase 466 U/L (73-393) EKG Diagnostic Results Rate: normal Rhythm: NSR ST Segments: no acute changes Rhythm Strip Diag. Results EP Interpretation: yes Rate: 64 Rhythm: NSR, no PVC's, no ectopy Chest X-Ray Diagnostic Results Chest X-Ray Diagnostic Results : Chest X-Ray Ordered: Yes # of Views/Limited/Complete: 1 View Indication: Chest Pain EP Interpretation: Yes Interpretation: no consolidation, no effusion, no pneumothorax Impression: No acute disease Electronically Signed by: Damian Stanley DO Other X-Ray Diagnostic Results Other X-Ray Diagnostic Results : X-Ray ordered: Left shoulder # of Views/Limited Vs Complete: 3 View Indication: Pain EP Interpretation: Yes Interpretation: no dislocation, no soft tissue swelling, no fractures Impression: No acute disease Electronically Signed by: Damian Stanley DO Last Vital Signs Date Time Temp Pulse Resp B/P (MAP) Pulse Ox O2 Delivery O2 Flow Rate FiO2 06/18/17 00:00 62 06/18/17 00:00 97.0 17 117/48 99 Room Air 97.0 Status: improved Disposition: ADMITTED INPATIENT Condition: Serious Referrals: DAVIDA SUMMERS (PCP) Damian Stanley DO Jun 18, 2017 01:43
[2017-06-18 04:00] VITALS: BP 107/46
[2017-06-18] MEDS: NovoLOG Insulin Flexpen SUBQ SCH ×2 (06:00→11:30)
[2017-06-18] MEDS: Heparin 5000 units/ml inj SUBQ SCH ×2 (06:04→14:00)
[2017-06-18 08:00] VITALS: BP 112/52
[2017-06-18] MEDS: Lisinopril 10mg tab ORAL SCH (08:44)
[2017-06-18] MEDS: Carvedilol 6.25mg Tab ORAL SCH (08:44)
[2017-06-18] MEDS: Aspirin Baby 81mg ORAL SCH (08:47)
[2017-06-18] MEDS ORDERED: Memantine 10mg tab ORAL SCH (09:00)
[2017-06-18] MEDS ORDERED: Donepezil 10mg tab ORAL SCH ×2 (09:00→21:00)
[2017-06-18 11:45] VITALS: BP 157/63
--- NOTE | 2017-06-18 11:48 | Pulmonology Progress Note ---
Assessment/Plan Problems: (1) ACS (acute coronary syndrome) (2) Cerebrovascular accident (CVA) (3) HTN (hypertension) (4) Diabetes (5) Dementia (6) Syncope (7) Failure to thrive Assessment/Plan adjust cardiac meds echo reviewed cardo consult reviewed d/c coreg d/c megace and remeron. [facility] Subjective ROS Limited/Unobtainable: No Constitutional: Reports: no symptoms HEENT: Repors: no symptoms Respiratory: Reports: no symptoms Cardiovascular: Reports: no symptoms Allergies: Coded Allergies: IODINE (Verified Allergy, Intermediate, 04/06/16) VALSARTAN (Verified Allergy, Unknown, 03/07/16) Objective Last 24 Hour Vital Signs Date Time Temp Pulse Resp B/P (MAP) Pulse Ox O2 Delivery O2 Flow Rate FiO2 06/18/17 08:44 112/52 06/18/17 08:44 61 112/52 06/18/17 08:44 61 112/52 06/18/17 08:00 80 06/18/17 08:00 98.0 61 19 112/52 98 Room Air 98.0 06/18/17 07:55 60 16 Room Air 21 06/18/17 04:00 61 06/18/17 04:00 98.2 60 19 107/46 97 Room Air 98.2 06/18/17 04:00 61 70 80 06/18/17 00:00 62 06/18/17 00:00 97.0 65 17 117/48 99 Room Air 97.0 06/17/17 20:31 65 110/54 06/17/17 20:00 68 06/17/17 20:00 97.7 65 16 110/54 96 Room Air 97.7 06/17/17 19:54 64 73 82 06/17/17 16:00 68 06/17/17 16:00 98.2 64 18 126/56 99 Room Air 98.2 06/17/17 12:06 62 75 79 06/17/17 12:04 99.1 62 18 144/65 99 Room Air 99.1 06/17/17 12:00 67 Intake and Output 06/17/17 06/18/17 19:00 07:00 Intake Total 1240 ml Balance 1240 ml Intake Oral 1240 ml # Voids 2 # Bowel Movements 1 General Appearance: cachetic HEENT: normocephalic Respiratory/Chest: chest wall non-tender, lungs clear Cardiovascular: normal peripheral pulses, normal rate Abdomen: normal bowel sounds, soft, non tender Genitourinary: normal external genitalia Extremities: no cyanosis Skin: no rash Neurologic/Psychiatric: blower blast furnace II-XII grossly normal Current Medications Medications (Trade) Dose Ordered Sig/Jesenia Route PRN Reason Start Time Stop Time Status Last Admin Dose Admin Acetaminophen (Tylenol) 650 mg Q4H PRN ORAL FEVER 06/16/17 18:45 07/16/17 18:44 Albuterol/ Ipratropium (Albuterol/ Ipratropium) 3 ml EVERY 4 HOURS PRN HHN Shortness of Breath 06/16/17 18:45 06/21/17 18:44 Amlodipine Besylate (Norvasc) 5 mg DAILY ORAL 06/17/17 09:00 07/17/17 08:59 06/17/17 08:44 Aspirin (ASA) 162 mg DAILY ORAL 06/17/17 09:00 07/17/17 08:59 06/18/17 08:47 Carvedilol (Coreg) 6.25 mg EVERY 12 HOURS ORAL 06/16/17 21:00 07/16/17 20:59 06/17/17 20:31 Dextrose (Dextrose 50%) 25 ml STAT PRN IV BS 60-69mg/dl 06/16/17 19:15 07/16/17 19:14 Dextrose (Dextrose 50%) 50 ml STAT PRN IV BS less than 60mg/dl 06/16/17 18:45 07/16/17 18:44 Diltiazem HCl (Cardizem) 10 mg EVERY HOUR PRN IV heart rate more than 120, 06/16/17 18:45 07/16/17 18:44 Donepezil HCl (Aricept) 10 mg QHS ORAL 06/18/17 21:00 07/18/17 20:59 Enalaprilat (Vasotec) 2.5 mg EVERY 6 HOURS PRN IV sbp more than 160 06/16/17 18:45 07/16/17 18:44 Heparin Sodium (Porcine) (Heparin 5000 units/ml) 5,000 units EVERY 8 HOURS SUBQ 06/16/17 22:00 07/16/17 21:59 06/18/17 06:04 Insulin Aspart (NovoLOG) BEFORE MEALS AND HS SUBQ 06/16/17 21:00 07/16/17 20:59 06/17/17 20:35 Ketorolac Tromethamine (Toradol 30mg) 30 mg Q6HR PRN IV moderate pain ( 4-6) 06/16/17 18:45 06/21/17 18:44 Lisinopril (Zestril) 10 mg DAILY ORAL 06/17/17 09:00 07/17/17 08:59 06/17/17 08:43 Memantine (Namenda) 10 mg DAILY ORAL 06/18/17 09:00 07/18/17 08:59 06/18/17 08:47 Mirtazapine (Remeron) 45 mg BEDTIME ORAL 06/18/17 21:00 07/18/17 20:59 Morphine Sulfate (Morphine Sulfate) 2 mg EVERY 4 HOURS PRN IVP severe Pain (Pain Scale 7-10) 06/16/17 18:45 06/23/17 18:44 Nitroglycerin (Ntg) 0.4 mg Every 5 Minutes PRN SL Prn Chest Pain 06/16/17 18:45 07/16/17 18:44 Ondansetron HCl (Zofran) 4 mg Q6H PRN IVP Nausea & Vomiting 06/16/17 18:45 07/16/17 18:44 Pantoprazole (Protonix) 40 mg DAILY ORAL 06/17/17 09:00 07/17/17 08:59 06/18/17 08:47 Polyethylene Glycol (Miralax) 17 gm DAILYPRN PRN ORAL Constipation 06/16/17 18:45 07/16/17 18:44 Sitagliptin Phosphate (Januvia) 100 mg ACBREAKFAST ORAL 06/17/17 06:30 07/17/17 06:29 06/18/17 06:02 Temazepam (Restoril) 15 mg HSPRN PRN ORAL Insomnia 06/16/17 18:45 06/23/17 18:44 06/17/17 20:32 Souleymane Crow MD Jun 18, 2017 11:48
[2017-06-18 13:58] VITALS: BP 125/58
--- NOTE | 2017-06-18 15:13 | Cardiology Report ---
APPROVED REPORT EKG Measurement Heart [id number] Normal sinus rhythm Nonspecific T wave abnormality Abnormal ECG
--- NOTE | 2017-06-19 14:47 | General Progress Note ---
Assessment/Plan Status: stable Assessment/Plan mdd dementia remeron 45 qhs aricept Namenda Subjective Date patient seen: Jun 18, 2017 Neurologic/Psychiatric: Reports: anxiety, depressed, emotional problems Allergies: Coded Allergies: IODINE (Verified Allergy, Intermediate, 04/06/16) VALSARTAN (Verified Allergy, Unknown, 03/07/16) All Systems: reviewed and negative except above Subjective the pt is withdrawn and dysphoric. this is the late entry Objective Intake and Output 06/18/17 06/19/17 19:00 07:00 Intake Total 240 ml Balance 240 ml Intake Oral 240 ml # Voids 3 # Bowel Movements 1 Height (Feet): 5 Height (Inches): 4.00 Weight (Pounds): 115 General Appearance: WD/WN, no apparent distress, alert Neurologic: oriented x 3, responsive, depressed affect Lencho Blue M.D. Jun 19, 2017 14:47
--- NOTE | 2017-06-19 15:21 | Discharge Summary ---
Discharge Summary Discharge Summary Discharge Summary DATE OF ADMISSION: 06/16/2017 DATE OF DISCHARGE: 06/18/2017 CONSULTANTS: Dr. Lencho Sanon BRIEF HOSPITAL COURSE: Patient is an 87-year-old female with history of vertigo, dementia, hypertension , diabetes mellitus, resident of [facility], was brought in by paramedics due to a few episodes of fainting and left arm weakness reported by the nursing staff accompanied by left-sided chest pain. She had left shoulder pain, 3 out of 10, worst with movement, denied any vomiting or weakness, although with mild nausea. On evaluation at ED, troponin was negative. EKG was in normal sinus rhythm with no acute changes. Chest x-ray with no acute disease. Left shoulder x-ray no acute trauma or dislocation. She was admitted to telemetry for evaluation of acute coronary syndrome. She underwent cardiac evaluation with Dr. Sanon. Echocardiogram done showed ejection fraction of 70-75%, with no evidence of left ventricular hypertrophy, no aortic regurgitation, no mitral regurgitation. IVCs small suggestive of IV volume depletion. Beta jasmina was placed on hold. She was encouraged to drink more fluids. She was seen by psychiatrist. Patient with history of dementia and depression and was on Aricept, Namenda and Remeron. She was cleared for discharge back to [facility], to be taken off beta jasmina, Megace and Remeron. FINAL DIAGNOSES: Near syncope Dementia Chronic renal insufficiency Diabetes mellitus Systemic hypertension Old CVA Failure to thrive Major depressive disorder DISPOSITION: Patient was discharged to [facility] DISCHARGE MEDICATIONS: Refer to Discharge Medication List. I have been assigned to dictate discharge summary on this account, and I was not involved in the patient's management. Daphney Oneill NP Jun 19, 2017 15:21
== END 2017-06-18 16:10 | DRG 312 ==
LOC: EDBD 14:40 → EMR 15:09 → 2E 15:25 → EDBEDREQ 16:21 → 2E 18:08
DX: R55 Syncope and collapse (principal); F03.90 Unspecified dementia, unspecified severity, without behavioral disturbance, psychotic disturbance, mood disturbance, and anxiety; R62.7 Adult failure to thrive; I12.9 Hypertensive chronic kidney disease with stage 1 through stage 4 chronic kidney disease, or unspecified chronic kidney disease; N18.9 Chronic kidney disease, unspecified; E86.9 Volume depletion, unspecified; E11.22 Type 2 diabetes mellitus with diabetic chronic kidney disease; Z86.73 Personal history of transient ischemic attack (TIA), and cerebral infarction without residual deficits; Z88.8 Allergy status to other drugs, medicaments and biological substances; F32.9 Major depressive disorder, single episode, unspecified
CPT/HCPCS: 36415; 71045; 80053; 82550; 82553; 82962; 83690; 84484; 85025; 87081; 93005; 93306; 93970; 94664; 99285; J1815